=== PATIENT | male | born 1950 | race Caucasian/White ===

== ENCOUNTER → 2018-06-16 08:09 | Outpatient (CLI) | payer MEDICARE, BC, SELFPAY ==
[2018-06-16 08:58] LABS: Bilirubin Negative (Negative); Blood Negative (Negative); Clarity Clear; Glucose Negative (Negative); Ketones Negative (Negative); Leukocyte Esterase Negative (Negative); Nitrite Negative (Negative); Specific Gravity 1.025 (1.005-1.025)
[2018-06-16 09:00] LABS: HCT 43.6 % (40.0-50.0); HGB 14.9 g/dL (13.5-17.5); Mean Corp. HGB Concentration 34.2 g/dL (32.0-36.0); Mean Corpuscular Hemoglobin 28.1 pg (27.0-33.0); Mean Corpuscular Volume 82.1 fL (80-95); Mean Platelet Volume 9.1 fL (8.0-11.0); Platelet Count 228 x1000/uL (130-400); RBC 5.31 m/cumm (4.50-6.00); White Blood Cell Count 6.85 k/cumm (4.4-10.8)
[2018-06-16 09:09] LABS: Bacteria Rare HPF (Negative); C & S Indicated? No; Casts Negative LPF (Negative); Crystals Moderate Amorphous HPF (Negative); Epithelial Cells Negative HPF (Negative); Mucus Negative (Negative); Other Cells Negative (Negative); RBC 0-2 (0-2); WBC 0-2 HPF (0-5)
[2018-06-16 09:36] LABS: PROTEIN 22.9 mg/dL
[2018-06-16 09:38] LABS: COMMENT (LAB VIEW ONLY) 207.24 mg/dL; Prot/Crea Ur Ratio 0.11
[2018-06-16 09:44] LABS: Cholesterol 141 mg/dL (50-200)
[2018-06-16 09:50] LABS: ALT 21 U/L (12-78); AST 15 U/L (15-37); Albumin 3.6 g/dL (3.4-5.0); Alkaline Phosphatase 128 U/L (46-116); Anion Gap 11.9 mmol/L (3-11); BUN 12 mg/dL (7-18); CO2 21.1 mmol/L (21.0-32.0); CREATININE 1.01 mg/dL (0.70-1.30); Calcium 8.8 mg/dL (8.5-10.1); Chloride 105 mmol/L (98-107); Glucose 137 mg/dL (70-100); Magnesium 1.7 mg/dL (1.8-2.4); Potassium 4.4 mmol/L (3.5-5.1); Sodium 138 mmol/L (136-145); Total Protein 6.8 g/dL (6.4-8.2); Uric Acid 5.9 mg/dL (3.5-7.2)
[2018-06-17 15:15] LABS: Tacrolimus (DHMC) 6.8 ng/ml
== END ==
PROVIDERS: PCP Internal Medicine; Visit Provider Internal Medicine Nephrology
DX: Z94.0 Kidney transplant status (principal); Z79.899 Other long term (current) drug therapy; I25.10 Atherosclerotic heart disease of native coronary artery without angina pectoris
CPT/HCPCS: 36415; 80053; 80197; 85027; 81003; 81015; 82465; 82565; 83735; 84100; 84156; 84550

== ENCOUNTER 2018-06-26 10:00 | Outpatient (RCR) | payer MEDICARE, BC, SELFPAY ==
--- NOTE | 2018-06-26 13:30 | COCO.CNN ---
Primary Reason for Visit Medical/Dental/Vision Referral to Care Coordination Referral to Care Coordination: Yes Type: PCP Referral to Services: Yes Where and Who: [facility] exercise program. - Referral From Referral From: PCP Care Plan - Plan of Care Assessment/Background: Assisted 67 year old male client in completing paperwork for the [facility] HF exercise program. [facility] Self Management Goals: maintain health after Cardiac rehab. Action Plan/Progress: client to attend exercise program
--- NOTE | 2018-06-26 13:34 | PDOC.CNN_ITS ---
Primary Reason for Visit Medical/Dental/Vision Referral to Care Coordination Referral to Care Coordination: Yes Type: PCP Referral to Services: Yes Where and Who: [facility] exercise program. - Referral From Referral From: PCP Care Plan - Plan of Care Assessment/Background: Assisted 67 year old male client in completing paperwork for the [facility] HF exercise program. [facility] Self Management Goals: maintain health after Cardiac rehab. Action Plan/Progress: client to attend exercise program
== END 2018-07-10 23:59 | disposition home or self-care (01) ==
LOC: COCO 10:00
PROVIDERS: PCP Internal Medicine; Visit Provider Internal Medicine
DX: R69 Illness, unspecified (principal)

== ENCOUNTER 2018-07-10 11:31 | Outpatient (RCR) | payer MEDICARE, BC, SELFPAY | END 2018-07-10 23:59 | disposition home or self-care (01) | LOC: CR 11:31 | PROVIDERS: PCP Internal Medicine; Visit Provider Family Medicine | DX: I25.10 Atherosclerotic heart disease of native coronary artery without angina pectoris (principal); Z51.89 Encounter for other specified aftercare | CPT/HCPCS: S9472 ==

== ENCOUNTER 2018-07-12 02:30 | Outpatient (RCR) | payer MEDICARE, BC, SELFPAY | END 2018-08-09 23:59 | disposition home or self-care (01) | LOC: CR 02:30 | PROVIDERS: PCP Internal Medicine; Visit Provider Internal Medicine ==

== ENCOUNTER 2018-07-21 12:03 | Outpatient (RCR) | payer SELFPAY ==
--- NOTE | 2018-07-14 09:00 | PR3E_ITS ---
67 year old male who participated and completed Phase 2 of cardiac rehabilitation s/p CABG x4 on 02/16/2018. Patient has choose to continue exercising in our maintenance program and will be attending 2 days per week. RISK factors: +male, +age, +family history, +HTN, +HCL, +obesity, +depression Cardiac medications:Aspirin, Atorvastatin, Diltiazem, Metoprolol PMH: HTN, HLD, depression, renal disease, basal & squamous cell carcinoma, polycystic liver & kidney disease First day of exercise for Phase 3: Pt presented to the program on 07/14/18 and continued his regimen from Phase 2. Resting Vitals: HR 64, BP 153/92, Weight 243 lbs Exercise: treadmill, NuStep, UBE, stationary bike, free weights (10 minutes per machine) Exercise info: HR w/ exercise 88-101, MERCEDEZ RPE 12-13 Cool down HR: 87 bpm No adverse signs or symptoms w/ exercise noted or reported. Tolerated appropriately and will continue to monitor and progress patient as appropriate.
== END 2018-08-09 23:59 | disposition home or self-care (01) ==
LOC: CR 12:03
PROVIDERS: PCP Internal Medicine; Visit Provider Family Medicine
DX: I25.10 Atherosclerotic heart disease of native coronary artery without angina pectoris (principal); Z51.89 Encounter for other specified aftercare

== ENCOUNTER 2018-08-10 14:46 | Outpatient (RCR) | payer SELFPAY | END 2018-09-09 23:59 | disposition home or self-care (01) | LOC: CR 14:46 | PROVIDERS: PCP Internal Medicine; Visit Provider Internal Medicine | DX: I25.10 Atherosclerotic heart disease of native coronary artery without angina pectoris (principal); Z51.89 Encounter for other specified aftercare ==

== ENCOUNTER 2018-09-10 04:50 | Outpatient (RCR) | payer SELFPAY | END 2018-10-09 23:59 | disposition home or self-care (01) | LOC: CR 04:50 | PROVIDERS: PCP Internal Medicine; Visit Provider Internal Medicine | DX: I25.10 Atherosclerotic heart disease of native coronary artery without angina pectoris (principal); Z51.89 Encounter for other specified aftercare ==

== ENCOUNTER 2018-09-24 09:16 | Outpatient (CLI) | payer MEDICARE, BC, SELFPAY ==
[2018-09-24 10:06] LABS: HCT 43.2 % (40.0-50.0); HGB 14.6 g/dL (13.5-17.5); Mean Corp. HGB Concentration 33.8 g/dL (32.0-36.0); Mean Corpuscular Hemoglobin 28.6 pg (27.0-33.0); Mean Corpuscular Volume 84.7 fL (80-95); Mean Platelet Volume 9.2 fL (8.0-11.0); Platelet Count 243 x1000/uL (130-400); RBC Distribution Width 14.9 % (11.8-14.1); White Blood Cell Count 6.01 k/cumm (4.4-10.8)
[2018-09-24 10:21] LABS: Bilirubin Small (Negative); Blood Negative (Negative); Clarity Clear; Glucose Negative (Negative); Ketones Negative (Negative); Leukocyte Esterase Negative (Negative); Nitrite Negative (Negative); Specific Gravity >= 1.030 (1.005-1.025)
[2018-09-24 10:29] LABS: PROTEIN 32.8 mg/dL
[2018-09-24 10:36] LABS: Bacteria Rare HPF (Negative); C & S Indicated? No; Casts Negative LPF (Negative); Crystals Negative HPF (Negative); Epithelial Cells Rare HPF (Negative); Mucus Trace (Negative); RBC 0-2 (0-2); WBC 0-2 HPF (0-5)
[2018-09-24 10:37] LABS: COMMENT (LAB VIEW ONLY) 291.01 mg/dL; Prot/Crea Ur Ratio 0.11
[2018-09-24 10:46] LABS: Cholesterol 136 mg/dL (50-200)
[2018-09-24 10:52] LABS: ALT 22 U/L (12-78); AST 17 U/L (15-37); Albumin 3.5 g/dL (3.4-5.0); Alkaline Phosphatase 123 U/L (46-116); Anion Gap 10.2 mmol/L (3-11); BUN 15 mg/dL (7-18); Bilirubin, Total 1.1 mg/dL (0.2-1.0); CO2 24.8 mmol/L (21.0-32.0); CREATININE 1.02 mg/dL (0.70-1.30); Chloride 104 mmol/L (98-107); Glucose 112 mg/dL (70-100); Magnesium 1.7 mg/dL (1.8-2.4); PHOSPHORUS 3.3 mg/dL (2.6-4.7); Potassium 4.3 mmol/L (3.5-5.1); Sodium 139 mmol/L (136-145); Total Protein 6.6 g/dL (6.4-8.2); Uric Acid 5.5 mg/dL (3.5-7.2)
[2018-09-25 13:21] LABS: Tacrolimus 7.1 ng/ml
== END 2018-09-24 09:36 ==
PROVIDERS: PCP Internal Medicine; Visit Provider Internal Medicine Nephrology
DX: Z94.0 Kidney transplant status (principal); Z79.899 Other long term (current) drug therapy
CPT/HCPCS: 36415; 80053; 85027; 80197; 81003; 81015; 82465; 82565; 83735; 84100; 84156; 84550

== ENCOUNTER 2018-12-28 09:00 | Outpatient (CLI) | payer MEDICARE, BC, SELFPAY ==
[2018-12-28 10:02] LABS: HCT 44.3 % (40.0-50.0); HGB 14.9 g/dL (13.5-17.5); Mean Corp. HGB Concentration 33.6 g/dL (32.0-36.0); Mean Corpuscular Hemoglobin 28.4 pg (27.0-33.0); Mean Corpuscular Volume 84.5 fL (80-95); Mean Platelet Volume 9.2 fL (8.0-11.0); Platelet Count 217 x1000/uL (130-400); RBC 5.24 m/cumm (4.50-6.00); White Blood Cell Count 6.85 k/cumm (4.4-10.8)
[2018-12-28 10:26] LABS: PROTEIN 20.9 mg/dL
[2018-12-28 10:31] LABS: COMMENT (LAB VIEW ONLY) 212.08 mg/dL; Prot/Crea Ur Ratio 0.09
[2018-12-28 10:42] LABS: Bilirubin Negative (Negative); Blood Negative (Negative); Clarity Clear; Glucose Negative (Negative); Ketones Trace mg/dL (Negative); Leukocyte Esterase Negative (Negative); Nitrite Negative (Negative); pH 6.5 (5-8)
[2018-12-28 11:06] LABS: ALT 16 U/L (12-78); AST 14 U/L (15-37); Albumin 3.3 g/dL (3.4-5.0); Alkaline Phosphatase 125 U/L (46-116); Anion Gap 9.6 mmol/L (3-11); BUN 18 mg/dL (7-18); Bilirubin, Total 1.1 mg/dL (0.2-1.0); CO2 26.4 mmol/L (21.0-32.0); CREATININE 1.15 mg/dL (0.70-1.30); Calcium 8.6 mg/dL (8.5-10.1); Chloride 104 mmol/L (98-107); Glucose 113 mg/dL (70-100); Magnesium 1.5 mg/dL (1.8-2.4); PHOSPHORUS 3.5 mg/dL (2.6-4.7); Potassium 4.6 mmol/L (3.5-5.1); Sodium 140 mmol/L (136-145); Total Protein 6.9 g/dL (6.4-8.2)
[2018-12-28 11:09] LABS: Cholesterol 137 mg/dL (50-200)
[2018-12-29 14:04] LABS: Tacrolimus 8.5 ng/ml
== END 2018-12-28 09:20 ==
PROVIDERS: PCP Internal Medicine; Visit Provider Internal Medicine Nephrology
DX: Z94.0 Kidney transplant status (principal); Z79.899 Other long term (current) drug therapy
CPT/HCPCS: 36415; 80053; 85027; 80197; 81003; 82465; 82565; 83735; 84100; 84156; 84550

== ENCOUNTER 2019-01-20 10:44 | Outpatient (CLI) | payer MEDICARE, BC, SELFPAY | END 2019-01-20 11:04 | PROVIDERS: PCP Internal Medicine; Visit Provider Student in an Organized Health Care Education/Training Program | DX: I25.10 Atherosclerotic heart disease of native coronary artery without angina pectoris (principal); I12.9 Hypertensive chronic kidney disease with stage 1 through stage 4 chronic kidney disease, or unspecified chronic kidney disease; Z94.0 Kidney transplant status; Q61.3 Polycystic kidney, unspecified | CPT/HCPCS: 99213 ==

== ENCOUNTER 2019-02-25 08:54 | Outpatient (CLI) | payer MEDICARE, BC, SELFPAY | END 2019-02-25 09:14 | PROVIDERS: PCP Internal Medicine; Visit Provider Student in an Organized Health Care Education/Training Program | DX: R69 Illness, unspecified (principal) ==

== ENCOUNTER 2019-04-06 08:41 | Outpatient (CLI) | payer MEDICARE, BC, SELFPAY ==
[2019-04-06 10:00] LABS: Cholesterol 121 mg/dL (50-200); Glucose 105 mg/dL (70-100); HDL Cholesterol 31 mg/dL (40-60); LDL CHOLESTEROL 72 mg/dL (<100); Triglyceride 67 mg/dL (30-150)
== END 2019-04-06 09:01 ==
PROVIDERS: PCP Internal Medicine; Visit Provider Internal Medicine
DX: R73.9 Hyperglycemia, unspecified (principal); I25.10 Atherosclerotic heart disease of native coronary artery without angina pectoris; I10 Essential (primary) hypertension
CPT/HCPCS: 36415; 80061; 82947; 83721

== ENCOUNTER 2019-06-07 15:04 | Emergency (ER) | payer MEDICARE, BC, SELFPAY ==
[2019-06-07 15:17] VITALS: BP 144/81; PULSE 98; RESP 18; TEMP 36; O2SAT 96
--- NOTE | 2019-06-07 15:45 | ED.GENADUL_ITS ---
Discharge Plan Disposition Patient Disposition: HOME Condition: Stable Discharge Details Chief Complaint: Urinary Clinical Impression: BPH w/o urinary obs/LUTS, Urinary tract infection Primary Care Provider: Portia Davis ED Provider: Elvis Downs Home Meds and New Rx's Prescriptions: New ciprofloxacin HCl [Cipro] 500 mg tablet 500 mg PO BID Qty: 14 RF: 0 No Action venlafaxine 75 mg capsule,extended release 24hr 75 mg PO DAILY Qty: 90 RF: 3 aripiprazole 5 mg tablet 5 mg PO DAILY Qty: 90 RF: 3 atorvastatin 40 mg tablet 40 mg PO DAILY Qty: 90 RF: 3 omeprazole 40 mg capsule,delayed release(DR/EC) 40 mg PO DAILY Qty: 90 RF: 3 metoprolol succinate 100 mg tablet extended release 24 hr 50 mg PO DAILY RF: 0 clonidine HCl [Catapres] 0.1 MG tablet 1 tab PO BID Qty: 90 RF: 3 diltiazem HCl 120 MG capsule,extended release 24hr 120 mg PO BID Qty: 180 RF: 3 cholecalciferol (vitamin D3) [Vitamin D3] 2,000 UNIT capsule 2,000 unit PO DAILY Qty: 90 RF: 3 tacrolimus [Prograf] 0.5 MG capsule 0.5 mg PO DIRECTED RF: 0 acetaminophen 325 MG tablet 325 - 650 mg PO Q4H PRN RF: 0 donepezil 10 MG tablet 10 mg PO DAILY Qty: 90 RF: 3 amoxicillin 500 MG tablet 2 g PO ONCE RF: 0 aspirin [Aspir-81] 81 MG tablet,delayed release (DR/EC) 81 mg PO DAILY RF: 0 polyethylene glycol 3350(bulk) 1 GM granules 17 gm PO BID PRNQty: 527 RF: 3 diphenhydramine HCl [Benadryl] 25 MG capsule 25 mg PO PRN RF: 0 omega-3 fatty acids 1,000 mg capsule 1,000 mg PO BID RF: 0 magnesium gluconate 27 mg magnesium (500 mg) tablet 27 mg PO BID RF: 0 Discharge Instructions Instructions: Urinary Tract Infection in Men (ED) Additional Instructions: if symptoms continue in a week see your primary care provider if you have severe worsening pain, fevers or vomit, or feel more ill return to the emergency department Medical Decision Making 68 yo male with hx of a kidney transplant with prior need for potter years ago comes in with difficulty urinating starting this mroning. Denies fevers or chills, may have some burning with urination. Has no severe pain. Appears well systemically, and was able to urinate here and bladder scan shows only 17cc after this. Suspect uti vs possible retention that resolved, will check UA. He appears well and has no back pain fevers or other findings to suggest sepsis or pyelo pt remains stable and feels better, his UA does show evidence of uti so will start abx. ADvised f/u with his urologist and return precautions given Differential Diagnosis uti, cystitis, retention Lab Data Lab results reviewed: Yes I reviewed the patient's lab results. HPI General Mode of arrival: ambulatory . Date/Time Provider Initiated Documentation: 06/07/19 15:43 . Limitations to Documentation: no limitations . Information obtained by: patient . History of Present Illness 68 year old M presents to the emergency department with the chief complaint of difficulty urinating, described as moderate, Patient started experiencing this day(s) (1) and it has been constant. No relieving factors improve symptom(s), No exacerbating factors reported . Patient did receive the following treatments prior to arrival, none Related Data Home Medications Medication Instructions Recorded Confirmed cholecalciferol (vitamin D3) 2,000 unit PO DAILY #90 01/20/13 03/30/19 [Vitamin D3] clonidine HCl [Catapres] 1 tab PO BID #90 tab-cap 01/20/13 03/30/19 diltiazem HCl 120 mg PO BID #180 01/20/13 03/30/19 tacrolimus [Prograf] 0.5 mg PO DIRECTED 02/12/13 03/30/19 acetaminophen 325 - 650 mg PO Q4H PRN tab 05/06/13 03/30/19 donepezil 10 mg PO DAILY #90 tab 05/06/13 03/30/19 amoxicillin 2 g PO ONCE tab-cap 10/17/14 03/30/19 aspirin [Aspir-81] 81 mg PO DAILY tab-cap 04/05/16 03/30/19 polyethylene glycol 3350(bulk) 17 gm PO BID PRN #527 gm 01/28/17 03/30/19 diphenhydramine HCl [Benadryl] 25 mg PO PRN 06/20/17 03/30/19 aripiprazole 5 mg tablet 5 mg PO DAILY #90 tab 07/28/18 03/30/19 atorvastatin 40 mg tablet 40 mg PO DAILY #90 tab-cap 07/28/18 03/30/19 omeprazole 40 mg capsule,delayed 40 mg PO DAILY #90 tab-cap 07/28/18 03/30/19 release venlafaxine 75 mg capsule,extended 75 mg PO DAILY #90 tab-cap 07/28/18 03/30/19 release 24 hr metoprolol succinate 100 mg 50 mg PO DAILY tab-cap 01/20/19 03/30/19 tablet,extended release 24 hr magnesium gluconate 27 mg 27 mg PO BID tab 02/08/19 03/30/19 magnesium (500 mg) tablet omega-3 fatty acids 1,000 mg 1,000 mg PO BID 02/08/19 03/30/19 capsule ciprofloxacin HCl [Cipro] 500 mg PO BID #14 tab 06/07/19 Previous Rx's Medication Instructions Recorded aripiprazole 5 mg tablet 5 mg PO DAILY #90 tab 07/28/18 atorvastatin 40 mg tablet 40 mg PO DAILY #90 tab-cap 07/28/18 omeprazole 40 mg capsule,delayed 40 mg PO DAILY #90 tab-cap 07/28/18 release venlafaxine 75 mg capsule,extended 75 mg PO DAILY #90 tab-cap 07/28/18 release 24 hr ciprofloxacin HCl [Cipro] 500 mg PO BID #14 tab 06/07/19 Allergies Allergy/AdvReac Type Severity Reaction Status Date / Time No Known Allergies Allergy Verified 06/07/19 15:20 General Stated Complaint: Urinary YUE: 3 Review of Systems Review of Systems All systems reviewed & are unremarkable except as noted in HPI and below Constitutional Denies chills, Denies fever(s) and Denies weakness Cardiovascular Denies chest pain and Denies dyspnea Respiratory Denies cough and Denies dyspnea Gastrointestinal Denies abdominal pain, Denies nausea and Denies vomiting Musculoskeletal Denies joint swelling Neurologic Denies weakness Endocrine Denies heat intolerance [facility] History (Updated 04/08/19 @ 02:49 by Portia Davis MD) CABG X4 (02/16/18) Colonoscopy - MAC (11/28/17) Social History (Updated 03/30/19 @ 11:17 by Radha Madison LPN) Smoking/Tobacco Use Status: Never Alcohol Intake: never Drug use: Never Household members: spouse Number of Children: 2 number of grandchildren: 5 Communication Needs: Corrective Lenses current occupation: retired Current gender identity: male What is your relationship status?: Panel score (0-1 are the most socially isolated patients): 1 What type of physical activity do you participate in: none Seatbelt use: always Drive intox or ride w/intox medical driver: No Water heater temp set <120 deg: Yes Working smoke detector in home: Yes Carbon monox detector in home: Yes Do you feel safe in your relationship?: Yes Exam Const General: no acute distress Orientation: alert HENMT Head: normal to inspection Ears: external ears normal General nose exam: external nose normal Mouth: moist mucous membranes Eyes General: appearance normal, both eyes and all related structures Neck Neck: normal visual inspection Resp Effort & Inspection: normal respiratory effort and able to speak in complete sentences Cardio Rate: regular rate Skin General skin exam: no rashes or lesions noted Neuro General: alert and oriented x3 Extrem General: normal to inspection Psych Mental Status: mental status grossly normal Course Vital Signs Temperature 36 C L 06/07/19 15:17 Pulse 98 H 06/07/19 15:17 Respiratory Rate 18 06/07/19 15:17 Blood Pressure 144/81 H 06/07/19 15:17 Pulse Oximetry 96 06/07/19 15:17 Temperature 36 C L 06/07/19 15:17 Temperature Source Skin 06/07/19 15:17 Pulse 98 H 06/07/19 15:17 Respiratory Rate 18 06/07/19 15:17 Blood Pressure 144/81 H 06/07/19 15:17 Blood Pressure Position Sitting 06/07/19 15:17 Pulse Oximetry 96 06/07/19 15:17 Oxygen Delivery Method Room Air 06/07/19 15:17 Oxygen Flow Rate 0 06/07/19 15:17
[2019-06-07 15:55] LABS: Bilirubin Negative (Negative); Blood Moderate (Negative); Clarity Clear (Clear); Glucose Negative (Negative); Ketones Trace mg/dL (Negative); Leukocyte Esterase Small (Negative); Nitrite Negative (Negative); Specific Gravity 1.025 (1.005-1.025); pH 5.5 (5-8)
[2019-06-07 16:11] LABS: Bacteria Few HPF (Negative); Casts Negative LPF (Negative); Crystals Negative HPF (Negative); Epithelial Cells Negative HPF (Negative); Mucus Negative (Negative); Other Cells Few Transitional (Negative); WBC >50 HPF (0-5)
[2019-06-07 16:12] LABS: C & S Indicated? Yes
[2019-06-07 17:25] VITALS: BP 144/81; PULSE 98; RESP 18; TEMP 36.6; O2SAT 96
== END 2019-06-07 17:26 | disposition home or self-care (01) ==
PROVIDERS: Emergency Provider Emergency Medicine; PCP Internal Medicine
DX: N40.1 Benign prostatic hyperplasia with lower urinary tract symptoms (principal); N39.0 Urinary tract infection, site not specified; Z94.0 Kidney transplant status
CPT/HCPCS: 87077; 99283; 81003; 81015; 87086; 87186

== ENCOUNTER → 2019-07-21 09:54 | Outpatient (BNVA) | payer MEDICARE, BC, SELFPAY | PROVIDERS: PCP Internal Medicine; Visit Provider Student in an Organized Health Care Education/Training Program | DX: I25.10 Atherosclerotic heart disease of native coronary artery without angina pectoris (principal); Z95.1 Presence of aortocoronary bypass graft; Z94.0 Kidney transplant status; I10 Essential (primary) hypertension | CPT/HCPCS: 99214 ==

== ENCOUNTER 2019-08-17 08:40 | Outpatient (CLI) | payer MEDICARE, BC, SELFPAY ==
[2019-08-17 09:25] LABS: HCT 42.7 % (40.0-50.0); HGB 14.3 g/dL (13.5-17.5); Mean Corp. HGB Concentration 33.5 g/dL (32.0-36.0); Mean Corpuscular Hemoglobin 28.6 pg (27.0-33.0); Mean Corpuscular Volume 85.4 fL (80-95); Platelet Count 234 x1000/uL (130-400); RBC Distribution Width 15.4 % (11.8-14.1); White Blood Cell Count 6.05 k/cumm (4.4-10.8)
[2019-08-17 09:37] LABS: PROTEIN 16.1 mg/dL
[2019-08-17 09:40] LABS: COMMENT (LAB VIEW ONLY) 116.42 mg/dL; Prot/Crea Ur Ratio 0.13
[2019-08-17 09:41] LABS: Bilirubin Negative (Negative); Blood Negative (Negative); Clarity Clear (Clear); Glucose Negative (Negative); Ketones Negative (Negative); Leukocyte Esterase Negative (Negative); Nitrite Negative (Negative); Specific Gravity 1.025 (1.005-1.025); pH 5.5 (5-8)
[2019-08-17 09:41] LABS: Cholesterol 147 mg/dL (50-200)
[2019-08-17 09:53] LABS: ALT 18 U/L (16-63); AST 14 U/L (15-37); Albumin 3.5 g/dL (3.4-5.0); Alkaline Phosphatase 121 U/L (46-116); BUN 18 mg/dL (7-18); Bilirubin, Total 1.1 mg/dL (0.2-1.0); CREATININE 1.23 mg/dL (0.70-1.30); Calcium 9.2 mg/dL (8.5-10.1); Chloride 106 mmol/L (98-107); Estimated GFR 58.69 (mL/min/1.73m2); Glucose 162 mg/dL (70-100); Magnesium 1.6 mg/dL (1.8-2.4); PHOSPHORUS 4.2 mg/dL (2.6-4.7); Potassium 4.2 mmol/L (3.5-5.1); Sodium 141 mmol/L (136-145); Total Protein 6.9 g/dL (6.4-8.2); Uric Acid 5.1 mg/dL (3.5-7.2)
[2019-08-18 13:10] LABS: Tacrolimus 9.2 ng/ml
== END 2019-08-17 09:00 ==
PROVIDERS: PCP Internal Medicine; Visit Provider Internal Medicine Nephrology
DX: Z94.0 Kidney transplant status (principal); Z79.899 Other long term (current) drug therapy; Z29.8 Encounter for other specified prophylactic measures
CPT/HCPCS: 36415; 80053; 85027; 80197; 81003; 82465; 82565; 83735; 84100; 84156; 84550

== ENCOUNTER 2020-01-24 08:29 | Outpatient (CLI) | payer MEDICARE, BC, SELFPAY ==
[2020-01-24 09:31] LABS: HCT 42.2 % (40.0-50.0); HGB 14.6 g/dL (13.5-17.5); Mean Corp. HGB Concentration 34.6 g/dL (32.0-36.0); Mean Corpuscular Hemoglobin 29.5 pg (27.0-33.0); Mean Corpuscular Volume 85.3 fL (80-95); Mean Platelet Volume 8.8 fL (8.0-11.0); Platelet Count 218 x1000/uL (130-400); RBC 4.95 m/cumm (4.50-6.00); RBC Distribution Width 14.8 % (11.8-14.1); White Blood Cell Count 5.74 k/cumm (4.4-10.8)
[2020-01-24 09:49] LABS: Bilirubin Negative (Negative); Blood Negative (Negative); Clarity Clear (Clear); Glucose Negative (Negative); Ketones Negative (Negative); Leukocyte Esterase Negative (Negative); Nitrite Negative (Negative); Specific Gravity 1.025 (1.005-1.025); pH 6.5 (5-8)
[2020-01-24 10:09] LABS: PROTEIN 24.6 mg/dL
[2020-01-24 10:10] LABS: COMMENT (LAB VIEW ONLY) 114.94 mg/dL; Prot/Crea Ur Ratio 0.21
[2020-01-24 10:23] LABS: ALT 26 U/L (16-63); AST 16 U/L (15-37); Albumin 3.6 g/dL (3.4-5.0); Alkaline Phosphatase 113 U/L (46-116); Anion Gap 9.3 mmol/L (3-11); BUN 16 mg/dL (7-18); Bilirubin, Total 1.1 mg/dL (0.2-1.0); CO2 26.7 mmol/L (21.0-32.0); Calcium 8.5 mg/dL (8.5-10.1); Chloride 106 mmol/L (98-107); Cholesterol 104 mg/dL (<200); Glucose 117 mg/dL (74-106); Magnesium 1.6 mg/dL (1.8-2.4); PHOSPHORUS 2.9 mg/dL (2.6-4.7); Potassium 4.5 mmol/L (3.5-5.1); Sodium 142 mmol/L (136-145); Total Protein 6.6 g/dL (6.4-8.2); Uric Acid 5.4 mg/dL (3.5-7.2)
[2022-01-31 09:51] LABS: Tacrolimus 7.4 ng/ml (See Note)
== END 2020-01-24 08:49 ==
PROVIDERS: PCP Internal Medicine; Visit Provider Internal Medicine Nephrology
DX: Z94.0 Kidney transplant status (principal); Z79.899 Other long term (current) drug therapy; I10 Essential (primary) hypertension
CPT/HCPCS: 36415; 80053; 85027; 80197; 81003; 82465; 82565; 83735; 84100; 84156; 84550

== ENCOUNTER 2020-05-09 02:47 | Outpatient (CLI) | payer MEDICARE, BC, SELFPAY ==
[2020-05-09 13:54] LABS: HCT 43.6 % (40.0-50.0); Mean Corp. HGB Concentration 34.4 g/dL (32.0-36.0); Mean Corpuscular Hemoglobin 29.1 pg (27.0-33.0); Mean Corpuscular Volume 84.7 fL (80-95); Platelet Count 249 x1000/uL (130-400); RBC 5.15 m/cumm (4.50-6.00); RBC Distribution Width 14.4 % (11.8-14.1); Reticulocyte 2.1 % (0.5-2.4); White Blood Cell Count 6.45 k/cumm (4.4-10.8)
[2020-05-09 14:32] LABS: Bilirubin Negative (Negative); Blood Negative (Negative); Clarity Clear (Clear); Glucose Negative (Negative); Ketones Negative (Negative); Leukocyte Esterase Negative (Negative); Nitrite Negative (Negative); Specific Gravity 1.015 (1.005-1.025)
[2020-05-09 14:38] LABS: ALT 19 U/L (16-63); AST 15 U/L (15-37); Albumin 3.7 g/dL (3.4-5.0); Alkaline Phosphatase 110 U/L (46-116); Anion Gap 9.5 mmol/L (3-11); BUN 12 mg/dL (7-18); CO2 24.5 mmol/L (21.0-32.0); CREATININE 1.13 mg/dL (0.70-1.30); Calcium 8.9 mg/dL (8.5-10.1); Chloride 104 mmol/L (98-107); Glucose 96 mg/dL (74-106); Magnesium 1.7 mg/dL (1.8-2.4); PHOSPHORUS 3.4 mg/dL (2.6-4.7); Potassium 4.6 mmol/L (3.5-5.1); Sodium 138 mmol/L (136-145); Total Protein 6.7 g/dL (6.4-8.2); Uric Acid 5.1 mg/dL (3.5-7.2)
[2020-05-09 14:50] LABS: Calculated LDL 80 mg/dL (<100); Cholesterol 129 mg/dL (<200); HDL Cholesterol 31 mg/dL (40-60); Triglyceride 93 mg/dL (<150)
[2020-05-09 15:07] LABS: PROTEIN < 6.0 mg/dL
[2020-05-09 15:09] LABS: COMMENT (LAB VIEW ONLY) 31.29 mg/dL
[2020-05-10 09:43] LABS: Parathyroid Hormone,Intact 83 pg/mL (19-88)
[2020-05-10 14:26] LABS: Tacrolimus 7.3 ng/mL (See Note)
[2020-05-11 04:26] LABS: Vitamin D 25 Total 45.8 ng/ml (30-100)
[2020-05-11 11:30] LABS: Calcium (Random Urine) 2.9 mg/dL (See Note); Magnesium Random Urine <2.0 mg/dL (See Note); Phosphorus Urine 16.8 mg/dL (See Note)
[2020-05-12 22:36] LABS: 25-Hydroxy D Total 44 ng/mL; 25-Hydroxy D2 <4.0 ng/mL; 25-Hydroxy D3 44 ng/mL
== END 2020-05-09 03:07 ==
PROVIDERS: PCP Internal Medicine; Visit Provider Internal Medicine Nephrology
DX: E55.9 Vitamin D deficiency, unspecified (principal); Z94.0 Kidney transplant status; Z79.899 Other long term (current) drug therapy; Z48.298 Encounter for aftercare following other organ transplant; Z51.81 Encounter for therapeutic drug level monitoring; Z29.8 Encounter for other specified prophylactic measures
CPT/HCPCS: 36415; 80053; 80061; 82306; 83735; 85027; 80197; 81003; 82340; 82465; 82565; 83036; 83970; 84100; 84105; 84156; 84550; 85045

== ENCOUNTER → 2020-07-21 10:30 | Outpatient (BNVA) | payer MEDICARE, BC, SELFPAY | PROVIDERS: PCP Internal Medicine; Visit Provider Internal Medicine Cardiovascular Disease | DX: I25.119 Atherosclerotic heart disease of native coronary artery with unspecified angina pectoris (principal); E78.5 Hyperlipidemia, unspecified; I10 Essential (primary) hypertension; G47.33 Obstructive sleep apnea (adult) (pediatric); Z94.0 Kidney transplant status | CPT/HCPCS: 99204; 99215 ==

== ENCOUNTER 2020-10-26 01:59 | Outpatient (CLI) | payer MEDICARE, BC, SELFPAY ==
[2020-10-26 10:48] LABS: HCT 42.3 % (40.0-50.0); MCH 29.4 pg (27.0-33.0); MCHC 33.1 % (32.0-36.0); MCV 88.9 fL (80-95); MPV 9.2 fL (8.0-11.0); Platelet Count 258 10^3/uL (130-400); RBC 4.76 10^6/uL (4.36-5.78); Reticulocyte 2.8 % (0.5-2.4); WBC 7.57 10^3/uL (4.4-10.8)
[2020-10-26 11:14] LABS: COMMENT (LAB VIEW ONLY) 155.14 mg/dL; Prot/Crea Ur Ratio 0.17
[2020-10-26 11:24] LABS: ALT 23 U/L (16-63); AST 17 U/L (15-37); Albumin 3.5 g/dL (3.4-5.0); Alkaline Phosphatase 105 U/L (46-116); Anion Gap 7.3 mmol/L (3-11); BUN 16 mg/dL (7-18); Bilirubin, Total 1.5 mg/dL (0.2-1.0); CO2 27.7 mmol/L (21.0-32.0); CREATININE 1.05 mg/dL (0.70-1.30); Calcium 8.7 mg/dL (8.5-10.1); Calculated LDL 84 mg/dL (<100); Chloride 104 mmol/L (98-107); Cholesterol 130 mg/dL (<200); Glucose 118 mg/dL (74-106); HDL Cholesterol 27 mg/dL (40-60); Magnesium 1.5 mg/dL (1.8-2.4); Potassium 4.4 mmol/L (3.5-5.1); Sodium 139 mmol/L (136-145); Total Protein 6.8 g/dL (6.4-8.2); Triglyceride 96 mg/dL (<150)
[2020-10-26 11:42] LABS: Vitamin D 25 Total 45.4 ng/ml (30-100)
[2020-10-26 11:54] LABS: PHOSPHORUS 3.1 mg/dL (2.6-4.7); Uric Acid 4.6 mg/dL (3.5-7.2)
[2020-10-26 13:56] LABS: Bilirubin Negative (Negative); Blood Negative (Negative); Clarity Clear (Clear); Glucose Negative (Negative); Ketones Negative (Negative); Leukocyte Esterase Negative (Negative); Nitrite Negative (Negative); Specific Gravity 1.025 (1.005-1.025); pH 6.5 (5-8)
[2020-10-27 08:50] LABS: Calcium (Random Urine) 10.7 mg/dL (See Note)
[2020-10-27 08:52] LABS: Magnesium Random Urine 2.4 mg/dL (See Note)
[2020-10-27 10:01] LABS: Parathyroid Hormone,Intact 62 pg/mL (19-88)
[2020-10-27 13:58] LABS: Tacrolimus 4.1 ng/mL (See Note)
[2020-10-30 13:02] LABS: 25-Hydroxy D Total 47 ng/mL; 25-Hydroxy D2 <4.0 ng/mL; 25-Hydroxy D3 47 ng/mL
== END 2020-10-26 02:19 ==
PROVIDERS: PCP Internal Medicine; Visit Provider Internal Medicine Nephrology
DX: E55.9 Vitamin D deficiency, unspecified (principal); Z94.1 Heart transplant status; Z79.899 Other long term (current) drug therapy; I10 Essential (primary) hypertension; E78.5 Hyperlipidemia, unspecified
CPT/HCPCS: 36415; 80053; 80061; 82306; 83735; 85027; 80197; 81003; 82340; 82565; 83036; 83970; 84100; 84156; 84550; 85045

== ENCOUNTER 2020-12-12 03:18 | Outpatient (CLI) | payer MEDICARE, BC, SELFPAY ==
[2020-12-13 13:53] LABS: PSA, Ultrasensitive 0.61 ng/mL (<= 4.5)
== END 2020-12-12 03:19 | disposition home or self-care (01) ==
LOC: LBO 03:18
PROVIDERS: PCP Internal Medicine; Visit Provider Urology
DX: R97.20 Elevated prostate specific antigen [PSA] (principal)
CPT/HCPCS: 36415; 84153

== ENCOUNTER 2020-12-18 12:02 | Observation (INO) | payer MEDICARE, BC, SELFPAY ==
[2020-12-18] VITALS (62 sets, daily range): BP systolic 121–158; BP diastolic 71–94; PULSE 84–111; RESP 17–35; TEMP 37.1–37.4; O2SAT 95–99
--- NOTE | 2020-12-18 12:00 | RT.EKG_ITS ---
APPROVED REPORT Exam: Resting ECG Patient Location: E HR:95 bpm ECG Measurements Heart Rate 95 AXIS AK 152 P 56 QRSd 92 QRS 58 QT 346 T 28 QTc 435 Conclusion Sinus rhythm...normal P axis, V-rate 60- 99 sinus rhythm at 95, normal axis, no STEMI, nondiagnostic EKG
--- NOTE | 2020-12-18 12:17 | NUR.NOTE ---
pt of JAIME - [facility] list utd - just seen 2 weeks ago Nursing Note:
[2020-12-18] MEDS: Normal Saline Flush 10 ML SYR IVP ×2 (12:47→14:15)
[2020-12-18 12:51] LABS: Abs Immature Grans 0.02 10^3/uL (0.0-0.06); Absolute Basophil Count 0.02 10^3/uL (0.0-0.2); Absolute Eosinophil Count 0.04 10^3/uL (0.0-0.7); Absolute Monocyte Count 0.84 10^3/uL (0.1-0.8); Absolute Neutrophil Count 5.67 10^3/uL (1.2-6.7); Basophils % 0.3; Eosinophils % 0.5; HCT 38.4 % (40.0-50.0); HGB 12.5 g/dL (13.5-17.5); Immature Grans % 0.3; MCH 27.1 pg (27.0-33.0); MCHC 32.6 % (32.0-36.0); MCV 83.1 fL (80-95); MPV 9.2 fL (8.0-11.0); Monocytes % 11.2; Neutrophils % 75.7; Nucleated RBC 0 %; Platelet Count 301 10^3/uL (130-400); RBC 4.62 10^6/uL (4.36-5.78); RDW 14.8 % (11.8-14.1); WBC 7.49 10^3/uL (4.4-10.8)
--- NOTE | 2020-12-18 12:53 | ED.GENADUL_ITS ---
Discharge Plan Disposition Condition: Stable Discharge Details Chief Complaint: Chest Pain Admit Date/Time: 12/18/20 18:22 Admit Provider: Oswald Phillips Attending Provider: Oswald Phillips Primary Care Provider: Portia Daivs ED Provider: Demarcus Aponte Discharge Instructions Activity:: Activity as Tolerated Equipment/Supplies:: No Equipment Needed Diet:: As Tolerated Discharge Orders Discharge Orders: Discharge Order (Routine); Ordered 12/20/20 Ordered By: Mena Brantley Discharge Data Discharge Date/Time-TO BE ENTERED AT DEPARTURE: 12/18/20 19:37 Medical Decision Making Gita Oneill is a 60-year-old man with a history of polycystic kidney disease status post kidney transplant, polycystic liver disease, coronary artery disease who presented to the emergency department with pleuritic right lower chest pain since yesterday, also with mild shortness of breath. On exam patient is tachypneic 30-33 but is in no distress and is speaking in full sentences. There is no tenderness palpation of the chest. Benign cardiopulmonary exam aside from tachypnea. No lower extremity edema or posterior calf tenderness to palpation. Concern for pulmonary embolism, musculoskeletal pain, Covid, metabolic process, other, less likely pneumonia, acute coronary syndrome. Exam/history at this time is not consistent with sepsis, acute aortic pathology. EKG is nondiagnostic. Plan for screening labs, CT chest if creatinine okay, telemetry. Labs reviewed, nondiagnostic. No apparent metabolic process. CT chest negative. Patient has remained tachypneic throughout entire ED course. Plan for ABG, admission for further evaluation. Clinical impression: chest pain, tachypnea Disposition: [facility] inpatient Medical Records Medical records reviewed: Yes I reviewed the patient's medical records. Imaging Data Radiologic Study: Attestation: I personally reviewed and interpreted this imaging study as follows: Radiologist's impression: EXAM: CT CHEST PE CTA CLINICAL HISTORY: right sided chest pain. TECHNIQUE: Imaging Protocol: Axial CT angiography was performed with multi- slice acquisition and multi-planar and/or 3D reconstructions. CONTRAST MATERIAL: Intravenous: Omnipaque 350 Contrast volume:84 mL COMPARISON: CT ABD PELVIS WO CONTRAST from 06/11/2017 FINDINGS: Tracheobronchial tree: Patent where visualized. Pulmonary parenchyma: No consolidation or dominant measurable mass. No architectural distortion. Pulmonary Arteries: No evidence of filling defect to suggest pulmonary emboli. Mediastinum and Priti: No dominant adenopathy or fluid collection. Visualized thyroid gland: Unremarkable. Pleura: No effusion or pneumothorax. Heart: The heart is not dilated. Marked coronary artery calcification versus coronary stents. No pericardial effusion. Aorta: Thoracic aorta non-dilated. Moderate atherosclerosis. No evidence of dissection. Upper abdomen: There again seen multiple hypodense masses within the liver. The largest mass is shown interval decrease in size currently measuring 7.1 x 7.3 cm compared with 12 x 11 cm on the prior examination. Soft tissues: Unremarkable. Bones: Degenerative changes. Sternal wires are in place. IMPRESSION: 1. No evidence of pulmonary embolism, thoracic aortic dissection or aneurysm. 2. Multiple hepatic masses are again seen. The largest mass is shown interval decrease in size. 3. Findings were discussed with the emergency department on the date of the examination. Lab Data Lab results reviewed: Yes I reviewed the patient's lab results. ECG Data Attestation: I personally reviewed and interpreted this ECG (s) as follows: Interpretation: EKG shows sinus rhythm at 95, normal axis, no STEMI, nondiagnostic EKG HPI General Mode of arrival: ambulatory . Date/Time Provider Initiated Documentation: 12/18/20 12:08 . Limitations to Documentation: no limitations . Information obtained by: patient, RN notes reviewed and old records reviewed . HPI Narrative: Gita Oneill is a 70-year-old man with history of polycystic kidney disease status post kidney transplant, polycystic liver disease, coronary artery disease presenting to emergency department with chest pain. Patient reports that yesterday afternoon/evening he developed right lower chest pain, always present but worse with taking deep breaths. He denies any exertional component or positional component. Does not seem to be modified by eating. He states that he also feels somewhat short of breath. Patient denies any similar symptoms in the past. He states that he otherwise feels well in his usual state of health. Has been eating and drinking as usual. He denies any other pain, fever, cough, vomiting, diarrhea, numbness, weakness. No trauma or other known inciting event. Related Data Home Medications Medication Instructions Recorded Confirmed cholecalciferol (vitamin D3) 2,000 unit PO DAILY #90 01/20/13 12/18/20 [Vitamin D3] tacrolimus [Prograf] 0.5 mg PO DIRECTED 02/12/13 12/18/20 acetaminophen 325 - 650 mg PO Q4H PRN tab 05/06/13 12/18/20 donepezil 10 mg PO DAILY #90 tab 05/06/13 12/18/20 amoxicillin 2 g PO ONCE tab-cap 10/17/14 12/18/20 aspirin [Aspir-81] 81 mg PO DAILY tab-cap 04/05/16 12/18/20 polyethylene glycol 3350(bulk) 17 gm PO BID PRN #527 gm 01/28/17 12/18/20 diphenhydramine HCl [Benadryl] 25 mg PO PRN 06/20/17 12/18/20 magnesium gluconate 27 mg 27 mg PO BID tab 02/08/19 12/18/20 magnesium (500 mg) tablet omega-3 fatty acids 1,000 mg 1,000 mg PO BID 02/08/19 12/18/20 capsule tamsulosin 0.4 mg capsule 0.4 mg PO DAILY 06/24/19 12/18/20 metoprolol succinate 50 mg 50 mg PO DAILY #90 tab 01/18/20 12/18/20 tablet,extended release 24 hr aripiprazole 5 mg tablet 5 mg PO DAILY #90 tab 06/27/20 12/18/20 atorvastatin 40 mg tablet 40 mg PO DAILY #90 tab-cap 06/27/20 12/18/20 clonidine HCl 0.1 mg tablet 0.1 mg PO BID #180 tab 06/27/20 12/18/20 omeprazole 40 mg capsule,delayed 40 mg PO DAILY #90 tab-cap 06/27/20 12/18/20 release venlafaxine 150 mg tablet,extended 150 mg PO DAILY #90 tab 06/27/20 12/18/20 release 24 hr methylphenidate HCl 27 mg 27 mg PO DAILY #28 tab MDD 27mg 09/12/20 12/18/20 tablet,extended release 24 hr amlodipine 5 mg tablet 5 mg PO DAILY #30 tab 11/06/20 12/18/20 methylphenidate HCl 27 mg 27 mg PO DAILY #28 tab MDD 27mg 12/05/20 12/18/20 tablet,extended release 24 hr Previous Rx's Medication Instructions Recorded metoprolol succinate 50 mg 50 mg PO DAILY #90 tab 01/18/20 tablet,extended release 24 hr aripiprazole 5 mg tablet 5 mg PO DAILY #90 tab 06/27/20 atorvastatin 40 mg tablet 40 mg PO DAILY #90 tab-cap 06/27/20 clonidine HCl 0.1 mg tablet 0.1 mg PO BID #180 tab 06/27/20 omeprazole 40 mg capsule,delayed 40 mg PO DAILY #90 tab-cap 06/27/20 release venlafaxine 150 mg tablet,extended 150 mg PO DAILY #90 tab 06/27/20 release 24 hr methylphenidate HCl 27 mg 27 mg PO DAILY #28 tab MDD 27mg 09/12/20 tablet,extended release 24 hr amlodipine 5 mg tablet 5 mg PO DAILY #30 tab 11/06/20 methylphenidate HCl 27 mg 27 mg PO DAILY #28 tab MDD 27mg 12/05/20 tablet,extended release 24 hr Allergies Allergy/AdvReac Type Severity Reaction Status Date / Time No Known Allergies Allergy Verified 12/18/20 12:16 General Stated Complaint: Chest Pain YUE: 2 Review of Systems Narrative: Constitutional: denies fevers Eyes: denies eye pain ENT: denies ear pain, dental pain, sore throat Cardiovascular: Reports chest pain, denies edema Respiratory: Reports SOB, denies cough GI: denies abdominal pain, vomiting, diarrhea : denies flank pain MSK: denies back pain, neck pain, arthralgias, myalgias Skin: denies rash Neuro: denies headaches, numbness, weakness PFSH Medical History Depressive disorder, not elsewhere classified (11/25/11) vs adjustment disorder Major depressive disorder, recurrent, moderate Surgical History CABG X4 (02/16/18) Colonoscopy - MAC (11/28/17) H/O kidney transplant LEFT 20O9 History of nephrectomy, left 2008 History of nephrectomy, right 2009 History of surgery of liver Lap [place] [facility] [place] [facility] [place] Status post bilateral hernia repair Family History Mother No problems noted. Father , 11/12/10 Polycystic kidney disease Brother , CAUSE OF UNKNOWN 60'S No problems noted. Brother Polycystic kidney disease Melanoma Prostate cancer Other Breast cancer Diabetes Heart disease Hyperlipidemia Hypertension Social History Smoking/Tobacco Use Status: Never Smoking risk assessment performed?: Yes Alcohol Intake: never Drug use: Never Household members: spouse Number of Children: 2 number of grandchildren: 5 Communication Needs: Corrective Lenses current occupation: retired Current gender identity: male What is your relationship status?: Panel score (0-1 are the most socially isolated patients): 1 What type of physical activity do you participate in: walking Duration: 30-45 minutes/day Frequency: 3-4 times per week Seatbelt use: always Drive intox or ride w/intox trencher driver: No Water heater temp set <120 deg: Yes Working smoke detector in home: Yes Carbon monox detector in home: Yes Firearms in home: Yes Firearms unloaded and locked: Yes Do you feel safe at home: Yes Do you feel safe in your relationship?: Yes Exam Narrative Exam Narrative: Constitutional: well and [id number], pleasant, conversing normally mild tachypnea but able to speak in full sentences, no distress HENT: head atraumatic/normocephalic/normal inspection, mucous membranes moist Eyes: conjunctiva normal, sclera normal, pupils 3mm b/l Neck: no stridor, normal ROM, trachea midline Chest: normal inspection, no tenderness palpation of the right chest in the area of reported pain, no crepitus, no deformity Resp: Tachypnea 30-33, LCTAB Cardio: normal rate, normal rhythm, no murmur appreciated GI: abdomen soft, non-tender, non-distended Back: normal inspection, no rash Skin: warm, dry, normal color, no rash Neuro: alert, not altered, grossly non-focal, normal tone Ext: no edema, no posterior calf tenderness to palpation Psych: normal mood, normal affect, normal behavior Course Vital Signs Vital signs: Vital Signs Temperature 37.2 C 12/18/20 12:12 Pulse 94 H 12/18/20 12:12 Respiratory Rate 22 12/18/20 12:12 Blood Pressure 132/81 12/18/20 12:12 Pulse Oximetry 99 12/18/20 12:12 Temperature 37.2 C 12/18/20 12:12 Temperature Source Skin 12/18/20 12:12 Pulse 94 H 02/08/21 12:12 Respiratory Rate 23 12/18/20 12:20 Respiratory Effort 12/18/20 12:20 Respiratory Depth Shallow 12/18/20 12:20 Respiratory Pattern Normal 12/18/20 12:20 Blood Pressure 132/81 12/18/20 12:12 Pulse Oximetry 99 12/18/20 12:12 Oxygen Delivery Method Room Air 12/18/20 12:12 Oxygen Flow Rate 0 12/18/20 12:12 Pain Level 4 12/18/20 12:12 Lab/Test Results Lab/Test Results: Laboratory Tests Range/Units 12/18/20 12:25 WBC (4.4-10.8) 10^3/uL 7.49 RBC (4.36-5.78) 10^6/uL 4.62 Hgb (13.5-17.5) g/dL 12.5 L Hct (40.0-50.0) % 38.4 L MCV (80-95) fL 83.1 MCH (27.0-33.0) pg 27.1 MCHC (32.0-36.0) % 32.6 RDW (11.8-14.1) % 14.8 H Plt Count (130-400) 10^3/uL 301 MPV (8.0-11.0) fL 9.2 Immature Gran % 0.3 Neutrophils % 75.7 Lymphocytes % 12.0 Monocytes % 11.2 Eosinophils % 0.5 Basophils % 0.3 Nucleated RBC % % 0 Absolute Neutrophils (1.2-6.7) 10^3/uL 5.67 Absolute Lymphocytes (1.2-3.4) 10^3/uL 0.90 L Absolute Monocytes (0.1-0.8) 10^3/uL 0.84 H Absolute Eosinophils (0.0-0.7) 10^3/uL 0.04 Absolute Basophils (0.0-0.2) 10^3/uL 0.02 Sign Out Sign Out Data: Sign Out Comment: Patient signed out to Dr. Aponte at time of shift change with rapid Covid test and admission pending, patient already discussed with Dr. Brantley Last updated by Skye Cabrera MD at 12/18/20 16:48
[2020-12-18 13:12] LABS: ALT 45 U/L (16-63); AST 33 U/L (15-37); Albumin 2.5 g/dL (3.4-5.0); Alkaline Phosphatase 126 U/L (46-116); BUN 12 mg/dL (7-18); Bilirubin, Total 1.1 mg/dL (0.2-1.0); CREATININE 1.2 mg/dL (0.70-1.30); Calcium 8.4 mg/dL (8.5-10.1); Chloride 100 mmol/L (98-107); Glucose 167 mg/dL (74-106); Magnesium 1.8 mg/dL (1.8-2.4); NT-proBNP 291 pg/mL (<300); Potassium 3.5 mmol/L (3.5-5.1); Sodium 137 mmol/L (136-145); Total Protein 7.4 g/dL (6.4-8.2)
[2020-12-18 13:14] LABS: Troponin I < 0.05 ng/mL (<0.06)
[2020-12-18 13:21] LABS: D-Dimer 3990 ng/mlFEU (<500)
--- NOTE | 2020-12-18 13:45 | DI.CT_ITS ---
EXAM: CT CHEST PE CTA CLINICAL HISTORY: right sided chest pain. TECHNIQUE: Imaging Protocol: Axial CT angiography was performed with multi-slice acquisition and mu lti-planar and/or 3D reconstructions. CONTRAST MATERIAL: Intravenous: Omnipaque 350 Contrast volume:84 mL COMPARISON: CT ABD PELVIS WO CONTRAST from 06/11/2017 FINDINGS: Tracheobronchial tree: Patent where visualized. Pulmonary parenchyma: No consolidation or dominant measurable mass. No architectural distortion. Pulmonary Arteries: No evidence of filling defect to suggest pulmonary emboli. Mediastinum and Priti: No dominant adenopathy or fluid collection. Visualized thyroid gland: Unremarkable. Pleura: No effusion or pneumothorax. Heart: The heart is not dilated. Marked coronary artery calcification versus coronary stents. No per icardial effusion. Aorta: Thoracic aorta non-dilated. Moderate atherosclerosis. No evidence of dissection. Upper abdomen: There again seen multiple hypodense masses within the liver. The largest mass is ana wn interval decrease in size currently measuring 7.1 x 7.3 cm compared with 12 x 11 cm on the prior e xamination. Soft tissues: Unremarkable. Bones: Degenerative changes. Sternal wires are in place. IMPRESSION: 1. No evidence of pulmonary embolism, thoracic aortic dissection or aneurysm. 2. Multiple hepatic masses are again seen. The largest mass is shown interval decrease in size. 3. Findings were discussed with the emergency department on the date of the examination. RADIATION DOSE DELIVERED: 514.36mGy.cm Total DLP DATA REPOSITORY: All CT scans at this facility are submitted to the National Radiology Data Registry (NRDR) Dose Index Registry (DIR) with the [employer] ([employer]). RADIATION OPTIMIZATION: All CT scans at this facility use at least one of these dose optimization te chniques: automated exposure control; mA and/or kV adjustment per patient size (includes targeted exa ms where dose is matched to clinical indication); or iterative reconstruction.
[2020-12-18] MEDS: Omnipaque 350 MG/ML 100 ML BTL IJ (14:13)
[2020-12-18] MEDS: Normal Saline - Diluent 50 ML VIAL IV (14:15)
[2020-12-18] MEDS: Normal Saline 1,000 ML 1000 ML IV (14:35)
[2020-12-18 16:02] LABS: Source Nasopharynx
[2020-12-18 16:06] LABS: Troponin I < 0.05 ng/mL (<0.06)
[2020-12-18 16:18] LABS: BE -2 mmol/L (-2-3); HCO3 22 mmol/L (22-26); pCO2 31 mmHg (35-45); pH 7.46 (7.35-7.45); pO2 73 mmHg (80-105); sO2 96 % (95-98); tCO2 19 mmol/L (23-27)
[2020-12-18 16:21] LABS: FIO2 21 %; Site Left Radial
[2020-12-18 16:46] LABS: COVID-19 PCR Negative (Negative); Influenza A PCR Negative (Negative); Influenza B PCR Negative (Negative); RSV PCR Negative (Negative)
--- NOTE | 2020-12-18 18:09 | W.PM.HP.N ---
Date of service: 12/18/20 Time of Service: 18:09 Assessment and Plan Assessment and plan (1) Chest pain: Status: Acute Assessment and plan: Pleuritic chest pain and SOB with elevated d-Dimer. Without any clear diagnosis at this point I think one needs to consider the possibility of a false negative CTA, as this would otherwise explain much of this presentation. Will give single dose Lovenox and check LE U/S in AM. Chest wall injury, or some form of isolated pleurisy also to be considered, though I don't see how this would explain the d-Dimer. Otherwise usual meds as is. History of Present Illness History of Present Illness Chief Complaint: CP Narrative: 70 male with h/o kidney transplant, here with 2 days of gradual onset right pleuritic chest pain and SOB. No cough, fever or chills, no trauma or unusually strenuous activity. In ER w/u of note for tachypnea, d-Dimer >3900, negative CTA chest, neg Covid and neg trop x 2, with normal EKG. ABG shows mild respiratory alkalosis with pH 7.46, pCO2 31 , pO2 73. Due to concerns over ongoing CP and SOB he is admitted for further evaluation. Review of Systems All systems reviewed & are unremarkable except as noted in HPI and below PFSH Medical History Depressive disorder, not elsewhere classified (11/25/11) vs adjustment disorder Major depressive disorder, recurrent, moderate Surgical History CABG X4 (02/16/18) Colonoscopy - MAC (11/28/17) H/O kidney transplant LEFT 20O9 History of nephrectomy, left 2009 History of nephrectomy, right 2009 History of surgery of liver Lap [place] C[place] [facility] [place] Status post bilateral hernia repair Family History Mother No problems noted. Father , 11/12/10 Polycystic kidney disease Brother , CAUSE OF UNKNOWN 60'S No problems noted. Brother Polycystic kidney disease Melanoma Prostate cancer Other Breast cancer Diabetes Heart disease Hyperlipidemia Hypertension Social History Smoking/Tobacco Use Status: Never Smoking risk assessment performed?: Yes Alcohol Intake: never Drug use: Never Household members: spouse Number of Children: 2 number of grandchildren: 5 Communication Needs: Corrective Lenses current occupation: retired Current gender identity: male What is your relationship status?: Panel score (0-1 are the most socially isolated patients): 1 What type of physical activity do you participate in: walking Duration: 30-45 minutes/day Frequency: 3-4 times per week Seatbelt use: always Drive intox or ride w/intox salesperson driver: No Water heater temp set <120 deg: Yes Working smoke detector in home: Yes Carbon monox detector in home: Yes Firearms in home: Yes Firearms unloaded and locked: Yes Do you feel safe at home: Yes Do you feel safe in your relationship?: Yes Meds Home Medications and Allergies Home Medications Medication Instructions Recorded Confirmed Type cholecalciferol (vitamin D3) 2,000 unit PO DAILY #90 01/20/13 12/18/20 History [Vitamin D3] tacrolimus [Prograf] 0.5 mg PO DIRECTED 02/12/13 12/18/20 History acetaminophen 325 - 650 mg PO Q4H PRN tab 05/06/13 12/18/20 History donepezil 10 mg PO DAILY #90 tab 05/06/13 12/18/20 History amoxicillin 2 g PO ONCE tab-cap 10/17/14 12/18/20 History aspirin [Aspir-81] 81 mg PO DAILY tab-cap 04/05/16 12/18/20 History polyethylene glycol 3350(bulk) 17 gm PO BID PRN #527 gm 01/28/17 12/18/20 History diphenhydramine HCl [Benadryl] 25 mg PO PRN 06/20/17 12/18/20 History magnesium gluconate 27 mg 27 mg PO BID tab 02/08/19 12/18/20 History magnesium (500 mg) tablet omega-3 fatty acids 1,000 mg 1,000 mg PO BID 02/08/19 12/18/20 History capsule tamsulosin 0.4 mg capsule 0.4 mg PO DAILY 06/24/19 12/18/20 History metoprolol succinate 50 mg 50 mg PO DAILY #90 tab 01/18/20 12/18/20 Rx tablet,extended release 24 hr aripiprazole 5 mg tablet 5 mg PO DAILY #90 tab 06/27/20 12/18/20 Rx atorvastatin 40 mg tablet 40 mg PO DAILY #90 tab-cap 06/27/20 12/18/20 Rx clonidine HCl 0.1 mg tablet 0.1 mg PO BID #180 tab 06/27/20 12/18/20 Rx omeprazole 40 mg capsule,delayed 40 mg PO DAILY #90 tab-cap 06/27/20 12/18/20 Rx release venlafaxine 150 mg tablet,extended 150 mg PO DAILY #90 tab 06/27/20 12/18/20 Rx release 24 hr methylphenidate HCl 27 mg 27 mg PO DAILY #28 tab MDD 27mg 09/12/20 12/18/20 Rx tablet,extended release 24 hr amlodipine 5 mg tablet 5 mg PO DAILY #30 tab 11/06/20 12/18/20 Rx methylphenidate HCl 27 mg 27 mg PO DAILY #28 tab MDD 27mg 12/05/20 12/18/20 Rx tablet,extended release 24 hr Allergies Allergy/AdvReac Type Severity Reaction Status Date / Time No Known Allergies Allergy Verified 12/18/20 12:16 Exam Narrative Exam Narrative: 146/83, 91, 37.4, 23-30, 96% RA. HEENT atraumatic; neck supple; lungs clear; heart RRR w/o MRG; chest minimal tenderness in area of right anterior chest approx rib 6 and 7 in MCL; abdomen soft and NT; extremities w/o edema, calves NT, Luis Eduardo's neg, pulses 2+/=; neuro Ox3, moves all 4s Results Labs Result diagrams: 12/18/20 12:25 12/18/20 12:25 Labs: Laboratory Results - last 24 hr 12/18/20 12/18/20 12/18/20 12:25 12:25 12:25 WBC 7.49 RBC 4.62 Hgb 12.5 L Hct 38.4 L MCV 83.1 MCH 27.1 MCHC 32.6 RDW 14.8 H Plt Count 301 MPV 9.2 Immature Gran % 0.3 Neutrophils % 75.7 Lymphocytes % 12.0 Monocytes % 11.2 Eosinophils % 0.5 Basophils % 0.3 Nucleated RBC % 0 Absolute Neutrophils 5.67 Absolute Lymphocytes 0.90 L Absolute Monocytes 0.84 H Absolute Eosinophils 0.04 Absolute Basophils 0.02 D-Dimer 3990 H ABG Sample Site ABG pH ABG pCO2 ABG pO2 ABG HCO3 ABG Total CO2 ABG O2 Saturation ABG Base Excess FiO2 Sodium 137 Potassium 3.5 Chloride 100 Carbon Dioxide 25.0 Anion Gap 12.0 H BUN 12 Creatinine 1.2 Estimated GFR/1.73 m2 >= 60.00 Glucose 167 H Calcium 8.4 L Magnesium 1.8 Total Bilirubin 1.1 H AST 33 ALT 45 Alkaline Phosphatase 126 H Troponin I < 0.05 NT-Pro-B Natriuret Pep 291 Total Protein 7.4 Albumin 2.5 L COVID-19 Source SARS-CoV-2 (PCR) Influenza Type A (PCR) Influenza Type B (PCR) RSV (PCR) 12/18/20 12/18/20 12/18/20 15:45 15:56 16:18 WBC RBC Hgb Hct MCV MCH MCHC RDW Plt Count MPV Immature Gran % Neutrophils % Lymphocytes % Monocytes % Eosinophils % Basophils % Nucleated RBC % Absolute Neutrophils Absolute Lymphocytes Absolute Monocytes Absolute Eosinophils Absolute Basophils D-Dimer ABG Sample Site Left radial ABG pH 7.46 H ABG pCO2 31 L ABG pO2 73 L ABG HCO3 22 ABG Total CO2 19 L ABG O2 Saturation 96 ABG Base Excess -2 FiO2 21 Sodium Potassium Chloride Carbon Dioxide Anion Gap BUN Creatinine Estimated GFR/1.73 m2 Glucose Calcium Magnesium Total Bilirubin AST ALT Alkaline Phosphatase Troponin I < 0.05 NT-Pro-B Natriuret Pep Total Protein Albumin COVID-19 Source Nasopharynx SARS-CoV-2 (PCR) Negative Influenza Type A (PCR) Negative Influenza Type B (PCR) Negative RSV (PCR) Negative Last Vital Signs Temp 37.4 C 12/18/20 14:41 Pulse 91 H 12/18/20 17:45 Resp 23 12/18/20 17:50 BP 146/83 H 12/18/20 17:45 Pulse Ox 96 12/18/20 17:50 COVID-19 Screening Have you, or household traveled for leisure in last 14 days?: No Had IN PERSON contact w/suspected or confirmed C-19 person: No
[2020-12-18] MEDS: Enoxaparin 100 MG/ML SYR SC (20:32)
[2020-12-18] MEDS: cloNIDine 0.1 MG TAB PO (20:32)
[2020-12-18] MEDS: Donepezil 5 MG TAB 10 MG PO (22:12)
[2020-12-18] MEDS: Tacrolimus 0.5 MG CAP PO (22:42)
--- NOTE | 2020-12-19 | DI.US_ITS ---
EXAM: US EXTREMITY VENOUS BI CLINICAL HISTORY: CP, SOB, elevated d-Dimer. TECHNIQUE: Bilateral lower extremity venous ultrasound performed using grayscale, color-flow, and sp ectral Doppler analysis. COMPARISON: No exams were available for comparison FINDINGS: The bilateral common femoral, femoral and popliteal veins demonstrate normal compressibility, augment ation, and color Doppler. The posterior tibial veins are patent. The saphenofemoral junctions are unr emarkable. There is no evidence of a Fallon's cyst. The soft tissues are unremarkable. IMPRESSION: Right: Negative for DVT Left: Negative for DVT DATA REPOSITORY:
--- NOTE | 2020-12-19 | DI.NM_ITS ---
EXAM: NM LUNG SCAN VENT PERF GRP CLINICAL HISTORY: concern for a PE, ?false negative CTA. TECHNIQUE: Injected Dose: Ventilation: 32 mCi Tc-99m DTPA via inhalation Perfusion: 4.2 mCi Tc-99m MAA via IV COMPARISON: CT CT CHEST PE CTA from 12/18/2020 CR XR CHEST 2V PA LATERAL from 12/19/2020 FINDINGS: Chest X-Ray: Clear lungs. Perfusion: Normal. Ventilation:Normal . IMPRESSION: 1. Very low probability of pulmonary embolism .. . Modified PIOPED II criteria Probability Criteria High Two or more segments of V/Q mismatch Low Normal Perfusion, Non segmental perfusion abnormalitie s, pleural effusion in at least 1/3 of pleural cavity with no other defect Radiograph/perfusion matched defect in mid to upper lung confined to segment, one to three small segmental perfusion defects (<25% of segment) Perfusion defect smaller than corresponding radiogra phic lesion. Intermediate All other findings DATA REPOSITORY:
--- NOTE | 2020-12-19 | DI.RAD_ITS ---
EXAM: XR CHEST 2V PA LATERAL CLINICAL HISTORY: for VQ scan TECHNIQUE: 2D digital imaging was performed. COMPARISON: CR CHEST 2 VIEWS PA,LAT from 06/11/2017 FINDINGS: MEDIASTINUM: Normal. HEART: Normal. Since the prior examination the patient has undergone a CABG. PULMONARY VASCULATURE: Normal. LUNGS: Clear. PLEURAL SPACE: No pleural effusion or pneumothorax. BONE:Within normal limits for the patient's age. OTHER FINDINGS:Normal. IMPRESSION: No acute pulmonary findings. DATA REPOSITORY: RADIATION DOSE DELIVERED:
[2020-12-19 03:07] VITALS: BP 170/98; PULSE 98; RESP 20; TEMP 36.8; O2SAT 98
[2020-12-19 03:14] VITALS: BP 150/80
[2020-12-19 07:00] VITALS: PULSE 87
[2020-12-19 07:57] VITALS: BP 153/89; PULSE 90; RESP 22; TEMP 36.3; O2SAT 100
[2020-12-19] MEDS: cloNIDine 0.1 MG TAB PO ×2 (08:21→21:54)
[2020-12-19] MEDS: Atorvastatin 40 MG TAB PO (08:21)
[2020-12-19] MEDS: Aspirin E.C. 81 MG TABEC PO (08:21)
[2020-12-19] MEDS: Tacrolimus 0.5 MG CAP 1 MG PO (08:21)
[2020-12-19] MEDS: Venlafaxine 150 MG CAPCR PO (08:21)
[2020-12-19] MEDS: ARIPiprazole 5 MG TAB PO (08:21)
[2020-12-19] MEDS: amLODIPine 5 MG TAB PO (08:22)
[2020-12-19] MEDS: Omeprazole 20 MG CAPCR 40 MG PO (08:22)
[2020-12-19] MEDS: Metoprolol CR 50 MG TABCR PO (08:22)
[2020-12-19] MEDS: Tamsulosin 0.4 MG CAPCR PO (08:22)
[2020-12-19] MEDS: Enoxaparin 120 MG/0.8 ML SYR 110 MG SC ×2 (10:11→21:55)
[2020-12-19 12:36] LABS: Troponin I < 0.05 ng/mL (<0.06)
[2020-12-19 13:41] LABS: COVID-19 RT-PCR UVMMC Result Negative (Negative)
--- NOTE | 2020-12-19 16:01 | INITIAL_ITS ---
- If Service Date Differs Date of service: 12/19/20 Time of Service: 16:17 Care Management Initial Assess REASON FOR HOSPITALIZATION:: Chest Pain PAST MEDICAL HISTORY/PAST SURGICAL HISTORY:: Major depressive disorder, CAGB x4, colonoscopy, kidney transplant, nephrectomy, liver surgery, bilateral hernia repair PREVIOUS FUNCTIONAL STATUS/SOCIAL/FAMILY SUPPORTS:: Gita resides in [place] with his , Ivet. He is independent at baseline in the community. CURRENT FUNCTIONAL STATUS:: Gita remains in good spirits, he is up independently in his room. He was being brought downstairs in a wheelchair when CM greeted him in the afternoon. CM continues to follow. Has patient been provided with info about the portal/API?: Yes Did the patient sign up for the portal?: Yes (Previously ) CODE STATUS:: Full Code INSURANCE COVERAGE / FINANCIAL ISSUES:: Medicare. BC/BS CURRENT HOME/COMMUNITY SERVICES/EQUIPMENT:: No current services or equipment. PRIMARY CARE PHYSICIAN:: Portia Davis POTENTIAL DISCHARGE NEEDS:: Follow up appointment with PCP. PATIENT/FAMILY EDUCATION NEEDS:: Review discharge instructions, discuss Ask Me Three. ANTICIPATED BARRIERS TO DISCHARGE:: None identified at this time. TRANSPORTATION:: Via private vehicle with family. PLAN:: Gita will return home when ready per MD. He will follow up with his PCP and plan of care as prescribed. He will transport via private with family.
--- NOTE | 2020-12-19 17:06 | W.PM.PROGNOT ---
Date of Service Date of service: 12/19/20 Time of Service: 17:06 Assessment and Plan Assessment and plan (1) Pleuritic chest pain: Status: Acute Assessment and plan: I agree that it sounds like the patient has a PE and had a false negative CTA. We will await the read of the VQ scan. Ruled out for ACS. Continue to monitor on tele and empiric full dose lovenox. (2) Acute respiratory alkalosis: Status: Acute Assessment and plan: As above. Tachypnea/dyspnea have resolved today. (3) Atherosclerosis of [place] coronary artery of [place] heart with angina pectoris: Status: Chronic (4) ANA ROSA (obstructive sleep apnea): Status: Chronic Assessment and plan: Continue home CPAP (5) DVT prophylaxis: Status: Acute Assessment and plan: Full dose lovenox (6) Discharge planning issues: Status: Acute Assessment and plan: Full code Plan to discharge home tomorrow Subjective Subjective Interval history since last seen: Feels better, though still has some pain on inhalation on the R side. Denies dizziness, chest pain, shortness of breath, nausea/vomiting. Exam Narrative Exam Narrative: General: Pleasant male, sitting comfortably at the edge of the bed HEENT: EOMI, MMM Heart: RRR, no m/r/g Lungs: CTAB Abdomen: soft, nontender, nondistended Extremities: no e/c/c BLE's Objective Last Vital Signs Temp 36.3 C L 12/19/20 07:57 Pulse 90 12/19/20 07:57 Resp 22 12/19/20 07:57 BP 153/89 H 12/19/20 07:57 Pulse Ox 100 12/19/20 07:57 Laboratory Results - last 24 hr 12/18/20 12/19/20 13:55 12:14 Troponin I < 0.05 SARS-CoV-2 (PCR) Negative Nasopharyn COVID-19 PCR Not Applicable Ref Test Perform Site [place] [facility] lab Objective Narrative Objective Narrative: Venous doppler BLE's: negative VQ scan pending
[2020-12-19 17:19] VITALS: BP 134/81; PULSE 86; RESP 18; TEMP 36.3; O2SAT 100
--- NOTE | 2020-12-19 17:22 | DI.VRAD_ITS ---
PROCEDURE INFORMATION: Exam: NM Lung Ventilation and Perfusion Imaging Exam date and time: 12/19/2020 5:03 PM Age: 70 years old Clinical indication: Angina; Patient HX: Chest pain x 72 hours TECHNIQUE: Imaging protocol: Nuclear pulmonary ventilation with aerosol or gas was performed followed by perfusion. Radiopharmaceutical: 4.2 mCi Tc-99m MAA (Macroaggregated Albumin), IV. 32 mCi Tc-99m DTPA (DTPA Aerosol), Inhalation. COMPARISON: CR XR CHEST 2V PA LATERAL 12/19/2020 1:40 PM FINDINGS: Ventilation: Normal. No ventilation defects. Perfusion: Normal. No perfusion defects. IMPRESSION: Very low probability for pulmonary embolus. Dictated and Authenticated by: Debo Garsia MD. Ordering:POIL San MD
[2020-12-19] MEDS: Normal Saline Flush 10 ML SYR IVP (21:54)
[2020-12-19] MEDS: Donepezil 5 MG TAB 10 MG PO (21:54)
[2020-12-19] MEDS: Tacrolimus 0.5 MG CAP PO (21:55)
[2020-12-19 23:49] VITALS: BP 155/88; PULSE 90; RESP 18; TEMP 37; O2SAT 95
[2020-12-20 03:32] VITALS: BP 134/76; PULSE 85; RESP 18; TEMP 36.5; O2SAT 96
[2020-12-20 07:00] VITALS: PULSE 88
[2020-12-20 07:49] VITALS: BP 147/80; PULSE 89; RESP 19; TEMP 36; O2SAT 99
[2020-12-20] MEDS: Tamsulosin 0.4 MG CAPCR PO (07:55)
[2020-12-20] MEDS: Aspirin E.C. 81 MG TABEC PO (07:55)
[2020-12-20] MEDS: Atorvastatin 40 MG TAB PO (07:55)
[2020-12-20] MEDS: Metoprolol CR 50 MG TABCR PO (07:55)
[2020-12-20] MEDS: Venlafaxine 150 MG CAPCR PO (07:55)
[2020-12-20] MEDS: amLODIPine 5 MG TAB PO (07:56)
[2020-12-20] MEDS: Omeprazole 20 MG CAPCR 40 MG PO (07:56)
[2020-12-20] MEDS: ARIPiprazole 5 MG TAB PO (07:56)
[2020-12-20] MEDS: Tacrolimus 0.5 MG CAP 1 MG PO (07:56)
[2020-12-20] MEDS: cloNIDine 0.1 MG TAB PO (07:56)
--- NOTE | 2020-12-20 08:43 | RESPIRATORY ---
Pt does not want to use a hospital cpap, says he uses his at home but has been sleeping well and does not need it. Will let RT reducing machine operator know if he changes his mind.
--- NOTE | 2020-12-20 09:39 | W.PM.DS.N ---
Date of service: 12/20/20 Time of Service: 09:39 DS: Diagnosis Discharge Diagnosis (1) Pleuritic chest pain: Status: Acute (2) Acute respiratory alkalosis: Status: Resolved (3) Atherosclerosis of [place] coronary artery of [place] heart with angina pectoris: Status: Chronic (4) ANA ROSA (obstructive sleep apnea): Status: Chronic (5) COVID-19 ruled out by laboratory testing: Status: Resolved Discharge Plan Disposition Patient Disposition: HOME Condition: Stable Discharge Details Reason For Visit: CP Admit Date/Time: 12/18/20 18:22 Admit Provider: Oswald Phillips Attending Provider: Oswald Phillips Primary Care Provider: Portia Davis Hospital Course Hospital Course: Mr Oneill is a 70 year old male with PMHx of polycystic kidney disease s/p renal transplant, on prograf therapy, as well as polycystic liver disease, hypertension, ANA ROSA, who was observed on [facility] hospitalist service from 12/18/2020 until 12/20/2020 after having presented with pleuritic chest pain, dyspnea/tachypnea, and evidence of respiratory alkalosis without hypoxia. He ruled out for ACS by EKGs and serial troponins. He did have an elevated D-dimer and a clinical picture concerning for an acute PE, but had a negative CTA of the chest. Because the clinical picture was so convincing, a false negative CTA of the chest was suspected. For this reason, a venous doppler of BLEs and a VQ scan were ordered. Both were negative. At this point, we can comfortably say that the etiology of his pleuritic chest pain is not a PE. His respiratory symptoms have resolved, though some degree of the pleuritic chest pain is still present. We recommend tylenol, incentive spirometry, and follow up with PCP for further workup, should pleurisy persist. Patient is stable for discharge home today. Care for patient as well as preparation of his discharge summary on day of discharge took 35 minutes. Home Meds and New Rx's Prescriptions: Continued aripiprazole 5 mg tablet 5 mg PO DAILY Qty: 90 RF: 3 atorvastatin 40 mg tablet 40 mg PO DAILY Qty: 90 RF: 3 clonidine HCl 0.1 mg tablet 0.1 mg PO BID Qty: 180 RF: 3 omeprazole 40 mg capsule,delayed release(DR/EC) 40 mg PO DAILY Qty: 90 RF: 3 venlafaxine 150 mg tablet extended release 24hr 150 mg PO DAILY Qty: 90 RF: 3 methylphenidate HCl 27 mg tablet extended release 24hr 27 mg PO DAILY MDD 27mg Qty: 28 RF: 0 methylphenidate HCl 27 mg tablet extended release 24hr 27 mg PO DAILY MDD 27mg Qty: 28 RF: 0 cholecalciferol (vitamin D3) [Vitamin D3] 2,000 UNIT capsule 2,000 unit PO DAILY Qty: 90 RF: 3 tacrolimus [Prograf] 0.5 MG capsule 0.5 mg PO DIRECTED RF: 0 acetaminophen 325 MG tablet 325 - 650 mg PO Q4H PRN RF: 0 donepezil 10 MG tablet 10 mg PO DAILY Qty: 90 RF: 3 amoxicillin 500 MG tablet 2 g PO ONCE RF: 0 aspirin [Aspir-81] 81 MG tablet,delayed release (DR/EC) 81 mg PO DAILY RF: 0 polyethylene glycol 3350(bulk) 1 GM granules 17 gm PO BID PRNQty: 527 RF: 3 diphenhydramine HCl [Benadryl] 25 MG capsule 25 mg PO PRN RF: 0 omega-3 fatty acids 1,000 mg capsule 1,000 mg PO BID RF: 0 magnesium gluconate 27 mg magnesium (500 mg) tablet 27 mg PO BID RF: 0 tamsulosin [Flomax] 0.4 mg capsule 0.4 mg PO DAILY RF: 0 metoprolol succinate 50 mg tablet extended release 24 hr 50 mg PO DAILY Qty: 90 RF: 3 amlodipine 5 mg tablet 5 mg PO DAILY Qty: 30 RF: 1 Discharge Instructions Instructions: Chest Pain (DC), Pleurisy (DC), How to Use an Incentive Spirometer (DC), Deep Vein Thrombosis (DC), Deep Vein Thrombosis Prevention (DC) Additional Instructions: Take tylenol for your chest pain on inspiration (make sure not to exceed the maximum recommended dose on the packaging) and use an incentive spirometry to ensure you are taking deep breaths (will help prevent pneumonia). Return to the hospital if the character of your chest pain changes, if you develop fever, bleeding, chest pain or shortness of breath. Follow up with your PCP in 1-2 weeks. Stand Alone Forms: Nursing Discharge Form Referrals: Portia Davis MD [Primary Care Provider] - 12/27/20 12:45 pm Activity:: Activity as Tolerated Equipment/Supplies:: No Equipment Needed Diet:: As Tolerated Discharge Orders Discharge Orders: Discharge Order (Routine); Ordered 12/20/20 Ordered By: Mena Brantley DS: Summary Time Spent with Patient providing and/or coordinating discharge services: Greater than 30 minutes Status at Discharge Functional status at discharge: independent ambulation Overall status at discharge: patient is progressing back to baseline Mental Status: mental status grossly normal Speech and Movement: speech and movement normal Mood: congruent mood Affect: normal affect Exam Narrative Exam Narrative: General: Pleasant male, laying comfortably in bed HEENT: EOMI, MMM Heart: RRR, no m/r/g Lungs: CTAB Abdomen: soft, nontender, nondistended Extremities: no e/c/c BLE's Psych Mental Status: mental status grossly normal Speech and Movement: speech and movement normal Mood: congruent mood Affect: normal affect DS: Data Vitals/I&O Vitals and I&O: Vital Signs Temperature 36 C L 12/20/20 07:49 Temperature Source Tympanic 12/20/20 07:49 Pulse 89 12/20/20 07:49 Pulse Rhythm Regular 12/20/20 09:31 Pulse 96 H 12/18/20 18:20 Respiratory Rate 19 12/20/20 07:49 Respiratory Effort Non-Labored 12/20/20 09:31 Respiratory Depth Normal 12/20/20 09:31 Respiratory Pattern Normal 12/20/20 09:31 Blood Pressure 147/80 H 12/20/20 07:49 Blood Pressure Mean 99 12/18/20 18:15 Pulse Oximetry 99 12/20/20 07:49 Oxygen Delivery Method Room Air 12/20/20 07:49 Oxygen Flow Rate 0 12/20/20 07:49 Pain Level 0 12/20/20 07:49 Intake & Output 12/19/20 12/19/20 12/20/20 11:59 23:59 11:59 Intake Total 360 / 1260 900 / 1260 240 / 240 Output Total 100 / 100 Balance 260 / 1160 900 / 1160 240 / 240 Intake: IV Oral 360 / 1250 890 / 1250 240 / 240 Output: Urine 100 / 100 Other: Urine Color Light Germaine Yellow Urine Appearance Clear Clear Clear Urine Odor Normal Comment Pt voided in the toilet independently, not hat in toliet to check amount. Per pt urine was dark. ADVERTISING ASSISTANT did not witness. pt using bathroom independently Voiding Methods Toilet Toilet Data Completed and Pending Completed studies during hospitalization [Text1]: CTA chest: 1. No evidence of pulmonary embolism, thoracic aortic dissection or aneurysm. 2. Multiple hepatic masses are again seen. The largest mass is shown interval decrease in size. CXR: No acute pulmonary findings. Venous doppler BLE's: Right: Negative for DVT Left: Negative for DVT VQ scan: Very low probability for pulmonary embolus. Labs on day of discharge: Labs from last 24 hours 12/19/20 12/18/20 12:14 13:55 Troponin I < 0.05 SARS-CoV-2 (PCR) Negative Nasopharyn COVID-19 PCR Not Applicable Ref Test Perform Site [facility] lab [facility] Medical History Depressive disorder, not elsewhere classified (11/25/11) vs adjustment disorder Major depressive disorder, recurrent, moderate Surgical History CABG X4 (02/16/18) Colonoscopy - MAC (11/28/17) H/O kidney transplant LEFT 20O9 History of nephrectomy, left 2009 History of nephrectomy, right 2009 History of surgery of liver [place] [facility] [place] Status post bilateral hernia repair Family History Mother No problems noted. Father , 11/12/10 Polycystic kidney disease Brother , CAUSE OF UNKNOWN 60'S No problems noted. Brother Polycystic kidney disease Melanoma Prostate cancer Other Breast cancer Diabetes Heart disease Hyperlipidemia Hypertension Social History Smoking/Tobacco Use Status: Never Smoking risk assessment performed?: Yes Alcohol Intake: never Drug use: Never Household members: spouse Number of Children: 2 number of grandchildren: 5 Communication Needs: Corrective Lenses current occupation: retired Current gender identity: male What is your relationship status?: Panel score (0-1 are the most socially isolated patients): 1 What type of physical activity do you participate in: walking Duration: 30-45 minutes/day Frequency: 3-4 times per week Seatbelt use: always Drive intox or ride w/intox local tanker truck driver: No Water heater temp set <120 deg: Yes Working smoke detector in home: Yes Carbon monox detector in home: Yes Firearms in home: Yes Firearms unloaded and locked: Yes Do you feel safe at home: Yes Do you feel safe in your relationship?: Yes
[2020-12-20] MEDS: Acetaminophen 325 MG TAB 650 MG PO (10:07)
[2020-12-20 13:41] VITALS: PULSE 92
--- NOTE | 2020-12-20 17:41 | PDOC.CMDIS ---
- If Service Date Differs Date of service: 12/20/20 Time of Service: 17:41 LACE Index Scoring Tool - Questions: Length of Stay (in days): 2 Acuity (Admit via E.D.?): Yes Comorbidities: Liver or Renal Disease E.D. Visits: 1 - Answers: Total Score: 11 Risk of Readmission: High Risk Care Management Discharge Reason for Hospitalization: Chest Pain Discharge Plan: Gita will return home with no additional services at this time. His will drive him home via private vehicle. He will follow up with his PCP and discharge plan of care. He is happy to be going home. Patient/Family Education Needs: Review discharge instructions, discussion of self care needs and self management.
== END 2020-12-20 12:04 | disposition home or self-care (01) ==
LOC: ER 18:29 → MS 19:15
PROVIDERS: Internal Medicine; Student in an Organized Health Care Education/Training Program; Admitting Provider General Practice; Emergency Provider Emergency Medicine; PCP Internal Medicine; Visit Provider General Practice
DX: R07.81 Pleurodynia (principal); Z94.0 Kidney transplant status; G47.33 Obstructive sleep apnea (adult) (pediatric); I25.119 Atherosclerotic heart disease of native coronary artery with unspecified angina pectoris; E87.3 Alkalosis; Q44.6 Cystic disease of liver; Z20.828 Contact with and (suspected) exposure to other viral communicable diseases
CPT/HCPCS: 36415; 71275; 78582; 80053; 82805; 93005; 96360; 99217; 99222; 99225; 99285; U0003; U0005; 71046; 83735; 83880; 84484; 85025; 85379; 93010; 93970; 99219; 99284; G0378; J1650; J3490

== ENCOUNTER 2021-03-06 03:33 | Outpatient (CLI) | payer MEDICARE, BC, SELFPAY ==
[2021-03-06 09:59] LABS: HCT 42.6 % (40.0-50.0); HGB 13.6 g/dL (13.5-17.5); MCH 27.1 pg (27.0-33.0); MCHC 31.9 % (32.0-36.0); MCV 84.9 fL (80-95); MPV 8.4 fL (8.0-11.0); Platelet Count 235 10^3/uL (130-400); RBC 5.02 10^6/uL (4.36-5.78); RDW 16.3 % (11.8-14.1); RDW-SD 49.5 fL
[2021-03-06 10:02] LABS: Bilirubin Negative (Negative); Blood Negative (Negative); Clarity Clear (Clear); Glucose Negative (Negative); Ketones Negative (Negative); Leukocyte Esterase Negative (Negative); Nitrite Negative (Negative); Specific Gravity 1.025 (1.005-1.025)
[2021-03-06 10:52] LABS: PROTEIN 22.6 mg/dL
[2021-03-06 11:05] LABS: ALT 22 U/L (16-63); AST 15 U/L (15-37); Albumin 3.5 g/dL (3.4-5.0); Alkaline Phosphatase 138 U/L (46-116); Anion Gap 9.6 mmol/L (3-11); BUN 17 mg/dL (7-18); Bilirubin, Total 1.2 mg/dL (0.2-1.0); CO2 27.4 mmol/L (21.0-32.0); Calcium 9.3 mg/dL (8.5-10.1); Chloride 104 mmol/L (98-107); Glucose 115 mg/dL (74-106); Magnesium 1.6 mg/dL (1.8-2.4); PHOSPHORUS 3.8 mg/dL (2.6-4.7); Potassium 4.6 mmol/L (3.5-5.1); Sodium 141 mmol/L (136-145); Total Protein 7.2 g/dL (6.4-8.2); Uric Acid 4.6 mg/dL (3.5-7.2)
[2021-03-06 11:20] LABS: COMMENT (LAB VIEW ONLY) 131.87 mg/dL; Prot/Crea Ur Ratio 0.17
[2021-03-06 11:28] LABS: Cholesterol 126 mg/dL (<200)
[2021-03-07 13:45] LABS: Tacrolimus 9.7 ng/mL (See Note)
== END 2021-03-06 03:34 | disposition home or self-care (01) ==
LOC: LBO 03:33
PROVIDERS: PCP Internal Medicine; Visit Provider Internal Medicine Nephrology
DX: Z94.0 Kidney transplant status (principal); Z79.899 Other long term (current) drug therapy
CPT/HCPCS: 36415; 80053; 85027; 80197; 81003; 82465; 82565; 83735; 84100; 84144; 84156; 84550

== ENCOUNTER 2021-05-15 04:05 | Outpatient (CLI) | payer MEDICARE, BC, SELFPAY ==
[2021-05-15 07:38] LABS: HGB 12.6 g/dL (13.5-17.5); MCH 26.5 pg (27.0-33.0); MCHC 31.5 % (32.0-36.0); MPV 8.4 fL (8.0-11.0); Platelet Count 223 10^3/uL (130-400); RBC 4.76 10^6/uL (4.36-5.78); RDW 16.8 % (11.8-14.1); WBC 6.47 10^3/uL (4.4-10.8)
[2021-05-15 07:54] LABS: Bilirubin Negative (Negative); Blood Negative (Negative); Clarity Clear (Clear); Glucose Negative (Negative); Ketones Negative (Negative); Leukocyte Esterase Negative (Negative); Nitrite Negative (Negative); Specific Gravity 1.025 (1.005-1.025); pH 6.5 (5-8)
[2021-05-15 08:04] LABS: Hemoglobin A1C 5.3 % (<5.7)
[2021-05-15 08:17] LABS: COMMENT (LAB VIEW ONLY) 120.06 mg/dL; Prot/Crea Ur Ratio 0.19
[2021-05-15 08:58] LABS: ALT 22 U/L (16-63); AST 14 U/L (15-37); Albumin 3.1 g/dL (3.4-5.0); Alkaline Phosphatase 127 U/L (46-116); Anion Gap 12.4 mmol/L (3-11); BUN 16 mg/dL (7-18); Bilirubin, Total 0.9 mg/dL (0.2-1.0); CO2 24.6 mmol/L (21.0-32.0); CREATININE 0.9 mg/dL (0.70-1.30); Calcium 8.5 mg/dL (8.5-10.1); Calculated LDL 82 mg/dL (<100); Chloride 105 mmol/L (98-107); Cholesterol 128 mg/dL (<200); Glucose 107 mg/dL (74-106); HDL Cholesterol 31 mg/dL (40-60); Magnesium 1.6 mg/dL (1.8-2.4); Potassium 4.3 mmol/L (3.5-5.1); Sodium 142 mmol/L (136-145); Total Protein 6.8 g/dL (6.4-8.2); Triglyceride 79 mg/dL (<150)
[2021-05-15 09:16] LABS: Vitamin D 25 Total 43.6 ng/mL (30-100)
[2021-05-15 09:51] LABS: PHOSPHORUS 3.2 mg/dL (2.6-4.7); Uric Acid 4.5 mg/dL (3.5-7.2)
[2021-05-16 09:27] LABS: Calcium (Random Urine) 14.3 mg/dL (See Note); Magnesium Random Urine 2.7 mg/dL (See Note); Phosphorus Urine 91.9 mg/dL (See Note)
[2021-05-16 11:45] LABS: Parathyroid Hormone,Intact 55 pg/mL (19-88)
[2021-05-16 12:21] LABS: SARS-CoV-2 Spike Ab, Interp Positive (Negative); SARS-CoV-2 Spike Ab, Quant >250 U/mL (<0.80)
[2021-05-16 14:03] LABS: Tacrolimus 4.8 ng/mL (See Note)
[2021-05-17 10:09] LABS: 25-Hydroxy D Total 46 ng/mL; 25-Hydroxy D2 <4.0 ng/mL; 25-Hydroxy D3 46 ng/mL
== END 2021-05-15 04:06 | disposition home or self-care (01) ==
LOC: LBO 04:05
PROVIDERS: PCP Internal Medicine; Visit Provider Internal Medicine Nephrology
DX: E55.9 Vitamin D deficiency, unspecified (principal); Z94.0 Kidney transplant status; Z79.899 Other long term (current) drug therapy
CPT/HCPCS: 36415; 80053; 80061; 82306; 83735; 85027; 86769; 80197; 81003; 82340; 82565; 83036; 83970; 84100; 84105; 84156; 84550

== ENCOUNTER → 2021-07-23 10:56 | Outpatient (BNVA) | payer MEDICARE, BC, SELFPAY | PROVIDERS: PCP Internal Medicine; Referring Provider Internal Medicine; Visit Provider Internal Medicine Cardiovascular Disease | DX: I25.10 Atherosclerotic heart disease of native coronary artery without angina pectoris (principal); G47.33 Obstructive sleep apnea (adult) (pediatric); Z99.89 Dependence on other enabling machines and devices; Z98.890 Other specified postprocedural states; Z91.89 Other specified personal risk factors, not elsewhere classified; I10 Essential (primary) hypertension | CPT/HCPCS: 99213 ==

== ENCOUNTER 2021-10-30 02:23 | Outpatient (CLI) | payer MEDICARE, BC, SELFPAY ==
[2021-10-30 12:18] LABS: HCT 40.3 % (40.0-50.0); HGB 12.7 g/dL (13.5-17.5); MCH 26.3 pg (27.0-33.0); MCHC 31.5 % (32.0-36.0); MCV 83.6 fL (80-95); MPV 8.7 fL (8.0-11.0); Platelet Count 266 10^3/uL (130-400); RBC 4.82 10^6/uL (4.36-5.78); RDW 14.9 % (11.8-14.1); WBC 6.46 10^3/uL (4.4-10.8)
[2021-10-30 12:20] LABS: Bilirubin Negative (Negative); Blood Negative (Negative); Clarity Clear (Clear); Glucose Negative (Negative); Ketones Negative (Negative); Leukocyte Esterase Negative (Negative); Nitrite Negative (Negative); Specific Gravity >= 1.030 (1.005-1.025); pH 6.5 (5-8)
[2021-10-30 12:26] LABS: Bacteria Negative HPF (Negative); Casts 0-2 Hyaline LPF (Negative); Crystals Negative HPF (Negative); Epithelial Cells Rare HPF (Negative); Mucus Trace (Negative); RBC Negative HPF (0-2); WBC Negative HPF (0-5)
[2021-10-30 12:27] LABS: C & S Indicated? No
[2021-10-30 13:12] LABS: Prot/Crea Ur Ratio 0.14
[2021-10-30 13:22] LABS: ALT 14 U/L (16-63); AST 15 U/L (15-37); Albumin 3.1 g/dL (3.4-5.0); Alkaline Phosphatase 118 U/L (46-116); BUN 19 mg/dL (7-18); CREATININE 1.1 mg/dL (0.70-1.30); Calcium 8.8 mg/dL (8.5-10.1); Chloride 104 mmol/L (98-107); Glucose 126 mg/dL (74-106); PHOSPHORUS 3.5 mg/dL (2.6-4.7); Potassium 4.7 mmol/L (3.5-5.1); Sodium 139 mmol/L (136-145); Total Protein 6.5 g/dL (6.4-8.2); Uric Acid 4.6 mg/dL (3.5-7.2)
[2021-10-30 17:50] LABS: Cholesterol 119 mg/dL (<200)
== END 2021-10-30 02:24 | disposition home or self-care (01) ==
LOC: LBO 02:23
PROVIDERS: PCP Internal Medicine; Visit Provider Internal Medicine Nephrology
DX: Z94.0 Kidney transplant status (principal); Z79.899 Other long term (current) drug therapy; Z29.8 Encounter for other specified prophylactic measures
CPT/HCPCS: 36415; 80053; 85027; 80197; 81003; 81015; 82465; 82565; 83735; 84100; 84156; 84550

== ENCOUNTER 2022-01-23 02:34 | Outpatient (CLI) | payer MEDICARE, SELFPAY ==
[2022-01-23 09:37] LABS: HCT 43.4 % (40.0-50.0); HGB 13.9 g/dL (13.5-17.5); MCH 26.6 pg (27.0-33.0); MPV 8.6 fL (8.0-11.0); Platelet Count 241 10^3/uL (130-400); RBC 5.23 10^6/uL (4.36-5.78); RDW 15.9 % (11.8-14.1); RDW-SD 47.8 fL; WBC 6.17 10^3/uL (4.4-10.8)
[2022-01-23 09:45] LABS: Bilirubin Negative (Negative); Blood Negative (Negative); Clarity Sl Cloudy (Clear); Glucose Negative (Negative); Ketones Negative (Negative); Leukocyte Esterase Negative (Negative); Nitrite Negative (Negative); Specific Gravity 1.025 (1.005-1.025)
[2022-01-23 10:40] LABS: Cholesterol 130 mg/dL (<200)
[2022-01-23 10:41] LABS: ALT 24 U/L (16-63); AST 17 U/L (15-37); Albumin 3.2 g/dL (3.4-5.0); Alkaline Phosphatase 134 U/L (46-116); BUN 12 mg/dL (7-18); Bilirubin, Total 0.9 mg/dL (0.2-1.0); CREATININE 1.1 mg/dL (0.70-1.30); Calcium 8.7 mg/dL (8.5-10.1); Chloride 108 mmol/L (98-107); Glucose 124 mg/dL (74-106); Magnesium 1.9 mg/dL (1.8-2.4); PHOSPHORUS 3.5 mg/dL (2.6-4.7); Potassium 4.4 mmol/L (3.5-5.1); Sodium 142 mmol/L (136-145); Total Protein 6.5 g/dL (6.4-8.2); Uric Acid 4.9 mg/dL (3.5-7.2)
[2022-01-23 10:45] LABS: COMMENT (LAB VIEW ONLY) 156.81 mg/dL; PROTEIN 21.9 mg/dL; Prot/Crea Ur Ratio 0.13
[2022-01-24 09:41] LABS: Hepatitis C Ab w Rflx HCV PCR Negative (Negative)
[2022-01-31 09:54] LABS: Tacrolimus 9.6 ng/ml (See Note)
== END 2022-01-23 02:35 | disposition home or self-care (01) ==
LOC: LBO 02:35
PROVIDERS: PCP Internal Medicine; Visit Provider Internal Medicine Nephrology
DX: Z11.59 Encounter for screening for other viral diseases (principal); Z94.0 Kidney transplant status; Z79.899 Other long term (current) drug therapy
CPT/HCPCS: 36415; 80053; 85027; 86803; 80197; 81003; 82465; 82565; 83735; 84100; 84156; 84550

== ENCOUNTER 2022-04-16 02:01 | Outpatient (CLI) | payer MEDICARE, SELFPAY | END 2022-04-16 02:02 | disposition home or self-care (01) | LOC: LBO 02:01 | PROVIDERS: PCP Internal Medicine; Visit Provider Internal Medicine ==

== ENCOUNTER 2022-04-30 00:59 | Outpatient (CLI) | payer MEDICARE, SELFPAY ==
[2022-04-30 09:57] LABS: HGB 15.8 g/dL (13.5-17.5); MCH 29.6 pg (27.0-33.0); MCHC 34.3 % (32.0-36.0); MCV 86 fL (80-95); MPV 8.8 fL (8.0-11.0); Platelet Count 199 10^3/uL (130-400); RBC 5.34 10^6/uL (4.36-5.78); RDW 14.8 % (11.8-14.1); RDW-SD 46.3 fL; Reticulocyte 2.5 % (0.5-2.4)
[2022-04-30 09:59] LABS: Bilirubin Negative (Negative); Blood Negative (Negative); Clarity Clear (Clear); Glucose Negative (Negative); Ketones Negative (Negative); Leukocyte Esterase Negative (Negative); Nitrite Negative (Negative); Specific Gravity 1.025 (1.005-1.025)
[2022-04-30 10:42] LABS: ALT 26 U/L (16-63); AST 16 U/L (15-37); Albumin 3.6 g/dL (3.4-5.0); Alkaline Phosphatase 118 U/L (46-116); Anion Gap 9.1 mmol/L (3-11); BUN 11 mg/dL (7-18); Bilirubin, Total 1.3 mg/dL (0.2-1.0); CO2 24.9 mmol/L (21.0-32.0); Chloride 103 mmol/L (98-107); Glucose 120 mg/dL (74-106); Magnesium 1.8 mg/dL (1.8-2.4); PHOSPHORUS 3.1 mg/dL (2.6-4.7); Potassium 4.4 mmol/L (3.5-5.1); Sodium 137 mmol/L (136-145); Total Protein 7.4 g/dL (6.4-8.2)
[2022-04-30 10:44] LABS: Hemoglobin A1C 5.3 % (<5.7)
[2022-04-30 11:02] LABS: Calculated LDL 78 mg/dL (<100); Cholesterol 137 mg/dL (<200); HDL Cholesterol 40 mg/dL (40-60); Triglyceride 97 mg/dL (<150)
[2022-04-30 19:04] LABS: PSA, Screening 0.6 ng/mL (<=6.5)
[2022-04-30 20:27] LABS: COMMENT (LAB VIEW ONLY) 124.39 mg/dL; PROTEIN 20.4 mg/dL; Prot/Crea Ur Ratio 0.16
[2022-05-01 09:31] LABS: Magnesium Random Urine 13.1 mg/dL (See Note)
[2022-05-01 09:34] LABS: Phosphorus Urine 56.4 mg/dL (See Note)
[2022-05-01 09:48] LABS: Calcium (Random Urine) 15.2 mg/dL (See Note)
[2022-05-01 10:25] LABS: Parathyroid Hormone,Intact 77 pg/mL (19-88)
[2022-05-01 12:58] LABS: Tacrolimus 7.7 ng/mL (See Note)
[2022-05-01 17:40] LABS: SARS-CoV-2 Spike Ab, Interp Positive; SARS-CoV-2 Spike Ab, Quant >250 U/mL
[2022-05-01 23:37] LABS: BKV DNA Detect/Quant, P Undetected IU/mL (Undetected)
[2022-05-02 05:03] LABS: Vitamin D 25 Total 42.8 ng/mL (30-100)
[2022-05-03 11:23] LABS: 25-Hydroxy D Total 48 ng/mL; 25-Hydroxy D2 <4.0 ng/mL; 25-Hydroxy D3 48 ng/mL
== END 2022-04-30 01:00 | disposition home or self-care (01) ==
LOC: LBO 00:59
PROVIDERS: PCP Internal Medicine; Visit Provider Internal Medicine Nephrology
DX: E55.9 Vitamin D deficiency, unspecified (principal); N40.0 Benign prostatic hyperplasia without lower urinary tract symptoms; Z94.0 Kidney transplant status; Z79.899 Other long term (current) drug therapy; Z01.84 Encounter for antibody response examination; Z12.5 Encounter for screening for malignant neoplasm of prostate
CPT/HCPCS: 36415; 80053; 80061; 82306; 83735; 84153; 85027; 86769; 80197; 81003; 82340; 82565; 83036; 83970; 84100; 84105; 84156; 84550; 85045; 87799

== ENCOUNTER → 2022-07-29 10:37 | Outpatient (BNVA) | payer MEDICARE, SELFPAY | PROVIDERS: PCP Nurse Practitioner Adult Health; Visit Provider Internal Medicine Cardiovascular Disease | DX: G47.33 Obstructive sleep apnea (adult) (pediatric) (principal); Z99.89 Dependence on other enabling machines and devices; I25.119 Atherosclerotic heart disease of native coronary artery with unspecified angina pectoris; R06.02 Shortness of breath; I10 Essential (primary) hypertension | CPT/HCPCS: 99214 ==

== ENCOUNTER → 2022-08-15 01:15 | Outpatient (CLI) | payer MEDICARE, SELFPAY ==
--- NOTE | 2022-08-15 07:15 | DI.NM_ITS ---
APPROVED REPORT Exam: Pharmacologic Patient Location: Out-Patient Room/Bed: Stress Nurse: Ximena Acosta RN Ordering Provider:TINA MCCLOUD, Contact Number: [phone] BMI: 29.61 Baseline Rhythm: Sinus Bradycardia Comment: P and QRS inversion in aVR, t wave inversion in aVL - ST segment abnormalities Indications: CAD, GREENE Medical History Medical History: Major depressive disorder, ANA ROSA, HLD, HTN, ASCVD s/p CABG Cardiac Medications: Omeprazole, Metoprolol Succinate, Atorvastatin, ASA, Amlodipine Allergies: Aripiprazole Cardiac Risk Factors: +HTN, +HLD, +CVD Previous Cardiac Procedures: CABG x4 (2018) Pretest Chest Pain Characteristics: None Exercise History: Sedentary Physical Disabilities: None Lung Sounds: Diminished/Clear Heart Sounds: Regular Stress Test Details Test: Pharmacologic stress was paired with low level exercise. Reason for pharmacologic stress test: Unable to hold beta alondra pre test, pt stated he could only walk for 2-4 minutes. Nuclear Acquisition: Rest Tc-99m/Stress Tc-99m 1 day Rest Isotope: Tc-99m Sestamibi. Dose: 11.5 Date: 08/15/2022 Injection Time: 09:30 Stress Isotope: Tc-99m Sestamibi. Dose: 36.5 Date: 08/15/2022 Injection Time: 11:25 HR Resting HR Supine: 52 bpm Max Heart Rate (APMHR): 150 bpm Resting HR Standin bpm Target HR (85% APMHR): 127 bpm Max HR Achieved: 110 bpm % of APMHR: 73 Recovery HR: 63 bpm HR response to stress: Accelerated HR response to stress BP Resting BP Supine: 150/90 mmHg Resting BP Standin/90 mmHg Max BP: 160/88 mmHg Recovery BP: 148/84 mmHg ECG Resting ECG: Sinus Bradycardia Ectopy: None Comment: slight ST elevations noted in II, III, aVF, V6 - ST abnormalities at rest Stress ECG: Sinus Tachycardia ST Change: No significant ST segment changes noted Arrhythmia: None Comment: ST segments normal Recovery ECG: Sinus Rhythm Recovery ST Change: No significant ST segment changes noted Recovery Arrhythmia: None Clinical Stress Symptoms: Dyspnea Rate Pressure Product: 07007 Stress ECG Conclusion 1. Resting electrocardiogram was within normal limits 2. Testing was performed using a combination of low-level exercise and pharmacologic stress with rega denoson 3. Peak heart rate achieved was 73% of predicted 4. The electrocardiographic portion of the test was nondiagnostic due to inadequate heart rate 5. See MPI report Stress Test Summary STAGE HR BP SpO2 Symptoms NOTES Supine 52 150/90 Standing 67 150/90 1 min post Lexiscan injection 98 130/80 mild shortness of breath 3 min post Lexiscan injection 73 160/88 6 min post Lexiscan injection 70 146/90 9 min post Lexiscan injection 63 148/84 shortness of breath at baseline MPI Conclusion Normal myocardial perfusion without evidence of ischemia or prior infarction EF 59%, normal wall motion Radiologist Interpretation Radiologist agrees with Leguillon Debeader's Interpretation. Radiologist Interpretation by: Demarcus Hemphill MD Interpretation Date/Time: 08/15/2022 15:38:21
[2022-08-15] MEDS: Regadenoson 0.4 MG/5 ML SYR IVP (11:53)
== END ==
PROVIDERS: PCP Nurse Practitioner Adult Health; Visit Provider Internal Medicine Cardiovascular Disease
DX: R06.02 Shortness of breath (principal)
CPT/HCPCS: 78452; 93016; 93018; 93017; J2785

== ENCOUNTER → 2022-08-22 14:17 | Outpatient (CLI) | payer MEDICARE, SELFPAY ==
--- NOTE | 2022-08-22 14:53 | DI.US_ITS ---
APPROVED REPORT EXAM: Comprehensive 2D, Doppler, and color-flow Echocardiogram Patient Location: Out-Patient Application Integration Specialist: Toshia Lua RDCS (AE) Indications: Exertional Dyspnea, CAD, CABG Other Information Study Quality: Adequate Conclusion Normal left ventricular wall thickness and chamber size. Estimated ejection fraction of 55 to 60%. Wall motion is normal Normal right ventricular size and systolic function Both atria are normal in size Aortic valve is mildly sclerotic and trileaflet with trace to mild regurgitation Normal mitral valve with trace regurgitation Normal tricuspid valve with mild to moderate regurgitation. Estimated right ventricular systolic pre ssure is 28 mmHg Aortic root is moderately dilated measuring 4.09 cm. The ascending aorta is dilated measuring 4.2 cm Wall motion Left Ventricle The left ventricle is normal size. The left ventricular systolic function is normal. The left ventric ular ejection fraction is within the normal range. There is normal left ventricular wall thickness. T here is normal LV segmental wall motion. There is no ventricular septal defect visualized. LVEF is 58 %. Right Ventricle The right ventricle is normal size. The right ventricular systolic function is normal. The RVSP is 28 .4 mmHg. Atria The left atrium size is normal. The right atrium size is normal. The interatrial septum is intact wit h no evidence for an atrial septal defect. Aortic Valve The Aortic valve is mildly sclerotic. There is no aortic valvular stenosis. Trace to mild aortic regu rgitation. Mitral Valve The mitral valve is normal in structure. No evidence of mitral valve stenosis. Trace mitral regurgita tion. Tricuspid Valve The tricuspid valve is normal in structure. There is no tricuspid valve stenosis. Mild to moderate tr icuspid regurgitation. Pulmonic Valve The pulmonary valve is normal in structure. There is no pulmonic valvular stenosis. Mild pulmonic reg urgitation. Great Vessels Aortic root is moderately dilated. The ascending aorta is dilated. Aortic arch is not well visualized . IVC is normal in size and collapses >50% with inspiration. Pericardium There is no pericardial effusion. 2D Dimensions IVSD d PLAX 1.01 cm M: 0.6-1.2 LV Vol A2C d MOD 100.5 mL LVPW d PLAX 1.01 cm M: 0.6 - 1.2 LV Vol A4C d MOD 99.2 mL LVID d PLAX 4.65 cm M: 4.2 - 5.8 LA vol/ BSA A2C s A-L 24.7 mL/m2 LVDs 3.30 cm M: 2.5 - 4.0 LA vol/ BSA A4C s A-L 12.9 mL/m2 Ao Root d 4.09 cm M: 3.1 - 3.7 LA Vol/ BSA Biplane s A-L 18.9 mL/m2 RA Area A4C 13.90 cm2 LA Area A4C s MOD 13.33 cm2 RA Vol/ BSA A4C s A-L 15.4 mL/m2 LA Area A2C s MOD 19.54 cm2 Ao Asc Diam d 4.20 cm M: 2.6 - 3.4 LV EF A4C MOD 57.2 % LV EF Teichholz 55.1 % LV EF A2C MOD 57.9 % LVEF (Hogan's) 57.60 % M: 52 - 72 LV EF Biplane MOD 57.6 % LV Volume 71.68 mL M: 62 - 150 SV 57.96 mL LV Volume Index 30.50 mL/m2 M: 34 - 74 SV Index 24.62 mL/m2 LV Vol Biplane MOD 100.6 mL FS 28.55 % M-Mode TAPSE 1.71 cm (M/F) >1.7 LV Diastology MV E' medial 0.085 (>0.07 m/s) E/A Ratio 0.6 LV E/e MED 5.55 (<14) MV E Vmax 0.47 (0.4-1.3 m/s) MV E' lateral 0.075 (>0.1 m/s) MV A Vmax 0.80 (0.4-1.3 m/s) LV E/e LAT 6.25 (<14) MV E/A Ratio 0.59 MV E/E' medial 5.56 MV E/E' lateral 6.28 Aortic Valve LVOT Area 3.41 cm2 AoV Area Vmax 1.87 cm2 LVOT Vmax 0.96 m/s AoV Area/ BSA (Vmax) 0.80 cm2/m2 LVOT Mean Dada. 0.69 m/s ERICKA Mean Dada. 2.05 cm2 LVOT Peak Grad 3.7 mmHg ERICKA Mean Dada. Index 0.87 cm2/m2 LVOT Mean Grad 2.1 mmHg AR DT 1680 msec LVOT VTI 0.170 m AR PHT 487 msec LVOT Diam s 2.05 cm AoV Vmax 1.76 m/s Velocity Ratio 0.54 AoV Mean Dada. 1.15 m/s AoV Peak Grad 12.4 mmHg LVOT SV 58.13 mL AoV Mean Grad 6.0 mmHg AoV VTI 0.238 m AoV Area VTI 2.45 cm2 AoV Area/ BSA (VTI) 1.04 cm/m2 Mitral Valve MV DT 311 (160-240 msec) MV PHT 90 msec MV Area PHT 2.44 cm2 Pulmonary Valve PV Vmax 0.93 (0.5-1.5 m/s) RVOT Peak Gr. 1.49 mmHg PV Peak Grad 3.5 mmHg RVOT Mean Gr. 0.75 mmHg PV Mean Grad 2.0 mmHg RVOT VTI 0.106 m PV VTI 0.151 m RVOT Vmax 0.61 m/s Tricuspid Valve TR Peak Grad 25.3 mmHg TR Vmax 2.52 m/s RA Pressure 3.00 mmHg RVSP (TR) 28.4 mmHg
== END ==
PROVIDERS: PCP Nurse Practitioner Adult Health; Visit Provider Internal Medicine Cardiovascular Disease
DX: R06.02 Shortness of breath (principal)
CPT/HCPCS: 93306

== ENCOUNTER 2022-11-01 01:10 | Outpatient (CLI) | payer MEDICARE, SELFPAY ==
[2022-11-01 13:00] LABS: HCT 44.1 % (40.0-50.0); HGB 15.1 g/dL (13.5-17.5); MCH 29.9 pg (27.0-33.0); MCHC 34.2 % (32.0-36.0); MCV 87 fL (80-95); MPV 8.6 fL (8.0-11.0); Platelet Count 176 10^3/uL (130-400); RBC 5.05 10^6/uL (4.36-5.78); RDW 13.3 % (11.8-14.1); RDW-SD 42.5 fL; WBC 7.62 10^3/uL (4.4-10.8)
[2022-11-01 13:02] LABS: Bilirubin Negative (Negative); Blood Negative (Negative); Clarity Cloudy (Clear); Glucose Negative (Negative); Ketones Negative (Negative); Leukocyte Esterase Negative (Negative); Nitrite Negative (Negative); pH 7.5 (5-8)
[2022-11-01 13:22] LABS: COMMENT (LAB VIEW ONLY) 125.57 mg/dL; PROTEIN 19.9 mg/dL; Prot/Crea Ur Ratio 0.15
[2022-11-01 13:27] LABS: ALT 23 U/L (16-63); AST 19 U/L (15-37); Albumin 3.6 g/dL (3.4-5.0); Alkaline Phosphatase 115 U/L (46-116); Anion Gap 6.4 mmol/L (3-11); BUN 15 mg/dL (7-18); Bilirubin, Total 1.4 mg/dL (0.2-1.0); CO2 27.6 mmol/L (21.0-32.0); CREATININE 1.1 mg/dL (0.70-1.30); Calcium 9.2 mg/dL (8.5-10.1); Chloride 105 mmol/L (98-107); Estimated GFR 71.77 (mL/min/1.73m2); Glucose 114 mg/dL (74-106); PHOSPHORUS 3.4 mg/dL (2.6-4.7); Potassium 4.4 mmol/L (3.5-5.1); Sodium 139 mmol/L (136-145); Total Protein 7.2 g/dL (6.4-8.2)
[2022-11-01 13:58] LABS: Cholesterol 161 mg/dL (<200)
[2022-11-05 13:23] LABS: Tacrolimus 5.5 ng/mL (See Note)
== END 2022-11-01 01:11 | disposition home or self-care (01) ==
PROVIDERS: PCP Nurse Practitioner Adult Health; Visit Provider Internal Medicine Nephrology
DX: Z94.0 Kidney transplant status (principal); Z79.899 Other long term (current) drug therapy
CPT/HCPCS: 36415; 80053; 80197; 85027; 81003; 82465; 82565; 83735; 84100; 84156; 84550

== ENCOUNTER 2022-12-30 13:08 | Outpatient (REF) | payer MEDICARE, SELFPAY ==
[2022-12-30 17:26] LABS: Folate 12.5 ng/mL (8.6-20.0); TSH (W/Ref FT4) 3.26 uIU/mL (0.36-3.74); Vitamin B12 453 pg/mL (193-986)
== END 2022-12-30 13:09 | disposition home or self-care (01) ==
LOC: LBN 13:08
PROVIDERS: PCP Nurse Practitioner Adult Health; Visit Provider Nurse Practitioner Adult Health
DX: F33.1 Major depressive disorder, recurrent, moderate (principal); G47.10 Hypersomnia, unspecified; Z79.899 Other long term (current) drug therapy
CPT/HCPCS: 82607; 82746; 84443

== ENCOUNTER 2023-01-22 02:59 | Outpatient (CLI) | payer MEDICARE, SELFPAY ==
[2023-01-22 13:13] LABS: HGB 16.3 g/dL (13.5-17.5); MCH 29.7 pg (27.0-33.0); MCV 87 fL (80-95); MPV 8.7 fL (8.0-11.0); Platelet Count 207 10^3/uL (130-400); RBC 5.49 10^6/uL (4.36-5.78); RDW 13.7 % (11.8-14.1); RDW-SD 43.5 fL; WBC 6.51 10^3/uL (4.4-10.8)
[2023-01-22 13:29] LABS: COMMENT (LAB VIEW ONLY) 180.14 mg/dL; Prot/Crea Ur Ratio 0.18
[2023-01-22 13:33] LABS: Cholesterol 130 mg/dL (<200)
[2023-01-22 13:37] LABS: ALT 22 U/L (16-63); AST 14 U/L (15-37); Albumin 3.6 g/dL (3.4-5.0); Alkaline Phosphatase 111 U/L (46-116); Anion Gap 8.5 mmol/L (3-11); BUN 20 mg/dL (7-18); Bilirubin, Total 1.3 mg/dL (0.2-1.0); CO2 27.5 mmol/L (21.0-32.0); CREATININE 1.2 mg/dL (0.70-1.30); Calcium 9.1 mg/dL (8.5-10.1); Chloride 103 mmol/L (98-107); Estimated GFR 64.65 (mL/min/1.73m2); Glucose 128 mg/dL (74-106); Magnesium 1.8 mg/dL (1.8-2.4); PHOSPHORUS 3.3 mg/dL (2.6-4.7); Potassium 3.9 mmol/L (3.5-5.1); Sodium 139 mmol/L (136-145); Total Protein 7.3 g/dL (6.4-8.2)
[2023-01-22 14:15] LABS: Bilirubin Negative (Negative); Blood Negative (Negative); Clarity Clear (Clear); Glucose Negative (Negative); Ketones Negative (Negative); Leukocyte Esterase Negative (Negative); Nitrite Negative (Negative); Specific Gravity >= 1.030 (1.005-1.025); pH 6.5 (5-8)
[2023-01-22 14:31] LABS: Epithelial Cells Few HPF (Negative); Other Cells Few Transitional (Negative)
[2023-01-22 14:33] LABS: Bacteria Few HPF (Negative); C & S Indicated? No; Casts Negative LPF (Negative); Crystals Negative HPF (Negative); Mucus Trace (Negative); RBC 0-2 HPF (0-2); WBC Negative HPF (0-5)
[2023-01-23 13:56] LABS: Tacrolimus 6.5 ng/mL (See Note)
== END 2023-01-22 03:00 | disposition home or self-care (01) ==
LOC: LBO 02:59
PROVIDERS: PCP Nurse Practitioner Adult Health; Visit Provider Internal Medicine Nephrology
DX: Z94.0 Kidney transplant status (principal); Z79.899 Other long term (current) drug therapy
CPT/HCPCS: 36415; 80053; 85027; 80197; 81003; 81015; 82465; 82565; 83735; 84100; 84156; 84550

== ENCOUNTER 2023-04-17 03:04 | Outpatient (CLI) | payer MEDICARE, SELFPAY ==
[2023-04-17 11:15] LABS: HGB 15.4 g/dL (13.5-17.5); MCHC 34.2 % (32.0-36.0); MCV 88 fL (80-95); MPV 8.6 fL (8.0-11.0); Platelet Count 197 10^3/uL (130-400); RBC 5.14 10^6/uL (4.36-5.78); RDW 13.4 % (11.8-14.1); Reticulocyte 2.9 % (0.5-2.4); WBC 6.51 10^3/uL (4.4-10.8)
[2023-04-17 11:24] LABS: Bilirubin Negative (Negative); Blood Negative (Negative); Clarity Clear (Clear); Glucose Negative (Negative); Ketones Negative (Negative); Leukocyte Esterase Negative (Negative); Nitrite Negative (Negative); pH 6.5 (5-8)
[2023-04-17 11:36] LABS: ALT 28 U/L (16-63); AST 18 U/L (15-37); Albumin 3.4 g/dL (3.4-5.0); Alkaline Phosphatase 110 U/L (46-116); Anion Gap 4.8 mmol/L (3-11); BUN 15 mg/dL (7-18); CO2 27.2 mmol/L (21.0-32.0); CREATININE 1.1 mg/dL (0.70-1.30); Calcium 8.8 mg/dL (8.5-10.1); Calculated LDL 74 mg/dL (<100); Chloride 105 mmol/L (98-107); Cholesterol 129 mg/dL (<200); Estimated GFR 71.77 (mL/min/1.73m2); Glucose 125 mg/dL (74-106); HDL Cholesterol 39 mg/dL (40-60); Magnesium 1.7 mg/dL (1.8-2.4); Potassium 4.4 mmol/L (3.5-5.1); Sodium 137 mmol/L (136-145); Total Protein 7.3 g/dL (6.4-8.2); Triglyceride 82 mg/dL (<150)
[2023-04-17 11:46] LABS: PHOSPHORUS 3.3 mg/dL (2.6-4.7); Uric Acid 4.6 mg/dL (3.5-7.2)
[2023-04-17 11:49] LABS: COMMENT (LAB VIEW ONLY) 121.29 mg/dL; PROTEIN 14.2 mg/dL; Prot/Crea Ur Ratio 0.11
[2023-04-17 11:59] LABS: Vitamin D 25 Total 40.7 ng/mL (30-100)
[2023-04-17 23:54] LABS: Parathyroid Hormone,Intact 89 pg/mL (19-88)
[2023-04-18 09:39] LABS: Phosphorus Urine 61.2 mg/dL (See Note)
[2023-04-18 09:42] LABS: Magnesium Random Urine 13.9 mg/dL (See Note)
[2023-04-18 13:13] LABS: Tacrolimus 7.7 ng/mL (See Note)
[2023-04-19 09:30] LABS: Calcium, Random Ur 19 mg/dL; Creatinine, Random Ur 124 mg/dL (16 - 326)
[2023-04-19 18:56] LABS: BKV DNA Detect/Quant, P Undetected IU/mL (Undetected)
[2023-04-22 12:00] LABS: 1,25-Dihydroxyvitamin D 49 pg/mL (18-64)
== END 2023-04-17 03:05 | disposition home or self-care (01) ==
LOC: LBO 03:04
PROVIDERS: PCP Nurse Practitioner Adult Health; Visit Provider Internal Medicine Nephrology
DX: E55.9 Vitamin D deficiency, unspecified (principal); Z79.899 Other long term (current) drug therapy; T86.19 Other complication of kidney transplant; Z94.0 Kidney transplant status; Z29.8 Encounter for other specified prophylactic measures
CPT/HCPCS: 36415; 80053; 80061; 82306; 82310; 83735; 85027; 80197; 81003; 82565; 82652; 83036; 83970; 84100; 84105; 84156; 84550; 85045; 87799

== ENCOUNTER 2023-06-05 08:58 | Outpatient (CLI) | payer MEDICARE, SELFPAY ==
--- NOTE | 2023-06-05 08:45 | RT.EKG_ITS ---
APPROVED REPORT Exam: Resting ECG Reason for Exam: ASCVD Patient Location: O HR:62 bpm ECG Measurements Heart Rate 62 AXIS WA 164 P 11 QRSd 94 QRS 50 QT 407 T 65 QTc 414 Conclusion Sinus rhythm...normal P axis, V-rate 50- 99 Borderline low voltage, extremity leads...all extremity leads <0.6mV Otherwise normal ECG
== END 2023-06-05 08:59 | disposition home or self-care (01) ==
LOC: DI.CARD 09:03
PROVIDERS: PCP Nurse Practitioner Adult Health; Visit Provider Internal Medicine Cardiovascular Disease
DX: I25.119 Atherosclerotic heart disease of native coronary artery with unspecified angina pectoris (principal)
CPT/HCPCS: 93010

== ENCOUNTER → 2023-06-05 15:23 | Outpatient (BNVA) | payer MEDICARE, SELFPAY | PROVIDERS: PCP Nurse Practitioner Adult Health; Referring Provider Nurse Practitioner Adult Health; Visit Provider Internal Medicine Cardiovascular Disease | DX: Z01.810 Encounter for preprocedural cardiovascular examination (principal); N40.0 Benign prostatic hyperplasia without lower urinary tract symptoms; Z94.0 Kidney transplant status; Z95.1 Presence of aortocoronary bypass graft; I10 Essential (primary) hypertension | CPT/HCPCS: 93005; 99214; 99213 ==

== ENCOUNTER 2023-06-24 03:37 | Outpatient (CLI) | payer MEDICARE, SELFPAY ==
[2023-06-24 12:50] LABS: HCT 45.1 % (40.0-50.0); HGB 15.3 g/dL (13.5-17.5); MCH 29.7 pg (27.0-33.0); MCHC 33.9 % (32.0-36.0); MCV 88 fL (80-95); MPV 8.5 fL (8.0-11.0); Platelet Count 216 10^3/uL (130-400); RBC 5.15 10^6/uL (4.36-5.78); RDW 13.7 % (11.8-14.1); RDW-SD 43.8 fL; WBC 6.98 10^3/uL (4.4-10.8)
[2023-06-24 12:54] LABS: Bilirubin Negative (Negative); Blood Negative (Negative); Clarity Clear (Clear); Glucose Negative (Negative); Ketones Negative (Negative); Leukocyte Esterase Negative (Negative); Nitrite Negative (Negative)
[2023-06-24 13:40] LABS: COMMENT (LAB VIEW ONLY) 84.95 mg/dL; PROTEIN 11.2 mg/dL; Prot/Crea Ur Ratio 0.13
[2023-06-24 13:43] LABS: Cholesterol 128 mg/dL (<200)
[2023-06-24 13:44] LABS: ALT 21 U/L (16-63); AST 16 U/L (15-37); Albumin 3.7 g/dL (3.4-5.0); Alkaline Phosphatase 111 U/L (46-116); Anion Gap 7.7 mmol/L (3-11); BUN 14 mg/dL (7-18); Bilirubin, Total 1.2 mg/dL (0.2-1.0); CO2 29.3 mmol/L (21.0-32.0); CREATININE 1.1 mg/dL (0.70-1.30); Calcium 9.1 mg/dL (8.5-10.1); Chloride 105 mmol/L (98-107); Estimated GFR 71.77 (mL/min/1.73m2); Glucose 104 mg/dL (74-106); PHOSPHORUS 3.4 mg/dL (2.6-4.7); Potassium 4.1 mmol/L (3.5-5.1); Sodium 142 mmol/L (136-145); Total Protein 7.4 g/dL (6.4-8.2); Uric Acid 4.7 mg/dL (3.5-7.2)
[2023-06-25 13:41] LABS: Tacrolimus 4.8 ng/mL (See Note)
== END 2023-06-24 03:38 | disposition home or self-care (01) ==
LOC: LBO 03:37
PROVIDERS: PCP Nurse Practitioner Adult Health; Visit Provider Internal Medicine Nephrology
DX: Z94.0 Kidney transplant status (principal); Z48.22 Encounter for aftercare following kidney transplant
CPT/HCPCS: 36415; 80053; 85027; 80197; 81003; 82465; 82565; 83735; 84100; 84156; 84550

== ENCOUNTER 2023-08-27 04:11 | Outpatient (CLI) | payer MEDICARE, SELFPAY ==
[2023-08-27 11:01] LABS: Abs Immature Grans 0.02 10^3/uL (0.0-0.06); Absolute Basophil Count 0.04 10^3/uL (0.0-0.2); Absolute Eosinophil Count 0.17 10^3/uL (0.0-0.7); Absolute Lymphocyte Count 0.89 10^3/uL (1.2-3.4); Absolute Monocyte Count 0.34 10^3/uL (0.1-0.8); Absolute Neutrophil Count 3.56 10^3/uL (1.2-6.7); Basophils % 0.8; Eosinophils % 3.4; HCT 44.8 % (40.0-50.0); HGB 15.2 g/dL (13.5-17.5); Immature Grans % 0.4; Lymphocytes % 17.7; MCH 29.6 pg (27.0-33.0); MCHC 33.9 % (32.0-36.0); MCV 87 fL (80-95); MPV 8.7 fL (8.0-11.0); Monocytes % 6.8; Neutrophils % 70.9; Platelet Count 173 10^3/uL (130-400); RBC 5.14 10^6/uL (4.36-5.78); RDW 13.8 % (11.8-14.1); RDW-SD 44.5 fL; WBC 5.02 10^3/uL (4.4-10.8)
[2023-08-27 11:03] LABS: Bilirubin Negative (Negative); Blood Negative (Negative); Clarity Clear (Clear); Glucose Negative (Negative); Ketones Negative (Negative); Leukocyte Esterase Negative (Negative); Nitrite Negative (Negative); Specific Gravity 1.015 (1.005-1.025)
[2023-08-27 11:12] LABS: COMMENT (LAB VIEW ONLY) 52.81 mg/dL; PROTEIN 9.1 mg/dL; Prot/Crea Ur Ratio 0.17
[2023-08-27 11:16] LABS: Magnesium 2.1 mg/dL (1.8-2.4); PHOSPHORUS 3.3 mg/dL (2.6-4.7); Uric Acid 4.4 mg/dL (3.5-7.2)
[2023-08-27 11:25] LABS: Cholesterol 120 mg/dL (<200)
[2023-08-27 14:08] LABS: ALT 21 U/L (16-63); AST 16 U/L (15-37); Albumin 3.3 g/dL (3.4-5.0); Alkaline Phosphatase 101 U/L (46-116); Anion Gap 7.7 mmol/L (3-11); BUN 11 mg/dL (7-18); Bilirubin, Total 1.1 mg/dL (0.2-1.0); CO2 25.3 mmol/L (21.0-32.0); CREATININE 1.1 mg/dL (0.70-1.30); Calcium 8.9 mg/dL (8.5-10.1); Chloride 103 mmol/L (98-107); Estimated GFR 71.32 (mL/min/1.73m2); Glucose 117 mg/dL (74-106); Potassium 4.2 mmol/L (3.5-5.1); Sodium 136 mmol/L (136-145)
[2023-08-28 13:51] LABS: Tacrolimus 4.8 ng/mL (See Note)
== END 2023-08-27 04:12 | disposition home or self-care (01) ==
LOC: LBO 04:11
PROVIDERS: PCP Nurse Practitioner Adult Health; Visit Provider Internal Medicine Nephrology
DX: Z94.0 Kidney transplant status (principal); Z79.899 Other long term (current) drug therapy
CPT/HCPCS: 36415; 80053; 80197; 81003; 82465; 82565; 83735; 84100; 84156; 84550; 85025

== ENCOUNTER → 2023-10-13 12:56 | Outpatient (BNVA) | payer MEDICARE, SELFPAY | PROVIDERS: PCP Nurse Practitioner Adult Health; Referring Provider Nurse Practitioner Adult Health; Visit Provider Surgery | DX: Z12.11 Encounter for screening for malignant neoplasm of colon (principal); K57.30 Diverticulosis of large intestine without perforation or abscess without bleeding; Z94.0 Kidney transplant status ==

== ENCOUNTER 2023-10-28 09:59 | Day surgery (SDC) | payer MEDICARE, SELFPAY ==
[2023-10-28 10:15] VITALS: BP 135/92; PULSE 72; RESP 18; TEMP 36.3; O2SAT 98
--- NOTE | 2023-10-28 10:33 | W.COLOREPORT ---
Date of service: 10/28/23 Time of Service: 12:56 Colonoscopy Report Procedure Description: PROCEDURES PERFORMED: 1. Colonoscopy PREOPERATIVE DIAGNOSIS: Screening colonoscopy POSTOPERATIVE DIAGNOSIS: Diverticulosis SURGEON: Yael Woodward MD INDICATION for procedure: 73-year-old man who does not have any symptoms due for a surveillance colonoscopy. His last one was 5 years ago and notable for diverticulosis only. He does not have a family history of colon cancer. He is chronically immunosuppressed from kidney transplant history. FINDINGS: Normal terminal ileum. No polyps. No inflammation. Diverticular changes are present in the left colon. No active inflammation. No significant hemorrhoidal disease. SURVEILLANCE-INTERVAL/FOLLOW-UP: Should stay on a 5-year interval until his PCP and him believe a 5-year life expectancy no longer exists. Specimens: None EBL: Minimal COMPLICATIONS: None QUALITY of prep: Excellent Procedure in detail: The patient gave written consent and was in agreement with the indications, the potential risks as well as the benefits of the procedure. They were taken to the endoscopy suite and laid in the left lateral decubitus position. A timeout was performed and anesthesia was administered which was tolerated well. I started the procedure. Digital rectal and visual examination was performed and grossly within normal limits. A well-lubricated flexible colonoscope was then introduced and passed without any notable difficulty all the way to the cecum identified by the ileocecal valve and the appendiceal orifice. The terminal ileum was briefly intubated and looked normal visually. The scope was then slowly withdrawn with the above-noted findings. The patient tolerated the procedure well and was taken to the PACU in hemodynamically stable condition.
--- NOTE | 2023-10-28 10:38 | W.PM.DSUDISC ---
Date of service: 10/28/23 Time of Service: 10:38 Discharge Plan Disposition Patient Disposition: Home Condition: Good Discharge Details Attending Provider: John Woodward Primary Care Provider: Melonie Hazel Home Meds and New Rx's Prescriptions: No Action clonidine HCl 0.1 mg tablet 0.1 mg PO BID Qty: 180 3RF donepezil 10 mg tablet 10 mg PO DAILY Qty: 90 ciclopirox 8 % solution 1 applic topical DAILY 90 Days Qty: 6.6 3RF clotrimazole-betamethasone 1-0.05 % cream 1 applic topical BID Qty: 45 4RF Ingrezza 80 mg capsule 80 mg PO DAILY tamsulosin [Flomax] 0.4 mg capsule 0.4 mg PO DAILY Rx Instructions: 07/12/21-pt reports now takes this BID [facility] Urology 09/18/21- pt reports he self decreased dose to QD venlafaxine 150 mg tablet extended release 24hr 150 mg PO QAM Qty: 90 3RF Hold Instructions: Home Medication placed on hold at Doctor's office Rx Instructions: take with 75mg for total dose of 225mg a day lisdexamfetamine [Vyvanse] 20 mg capsule 20 mg PO QAM MDD 20mg/24h Qty: 28 0RF lisdexamfetamine [Vyvanse] 20 mg capsule 20 mg PO QAM MDD 20mg/24hr Qty: 28 0RF lisdexamfetamine [Vyvanse] 20 mg capsule 20 mg PO QAM MDD 20mg/24h Qty: 28 0RF cholecalciferol (vitamin D3) [Vitamin D3] 2,000 UNIT capsule 2,000 unit PO DAILY Qty: 90 acetaminophen 325 MG tablet 325 - 650 mg PO Q4H PRN Rx Instructions: 1-2 tabs amoxicillin 500 MG tablet 2 g PO ONCE Patient Comments: pt takes this pre dental appoitnment and states that the last time he took it was around 8 months ago Rx Instructions: prior to dental work. aspirin [Aspir-81] 81 MG tablet,delayed release (DR/EC) 81 mg PO DAILY omega-3 fatty acids 1,000 mg capsule 1,000 mg PO BID Patient Comments: per Dr. Catarina pimentel magnesium amino acid chelate 100 mg tablet 200 mg PO BID Rx Instructions: total 4 tabs daily. Catarina Granger MD Sleep clinic - 06/11/21 metoprolol succinate 50 mg tablet extended release 24 hr 50 mg PO DAILY Qty: 90 3RF amlodipine 5 mg tablet 5 mg PO DAILY Qty: 90 3RF atorvastatin 40 mg tablet 40 mg PO DAILY Qty: 90 3RF omeprazole 40 mg capsule,delayed release(DR/EC) 40 mg PO DAILY Qty: 90 3RF polyethylene glycol 3350 [Miralax] 17 gram/dose powder 17 g PO BID PRN (Reason: constipation) Qty: 510 0RF Rx Instructions: 1 tablespoon daily and increase as needed to comfort level; up to 17gm BID prn tacrolimus [Prograf] 0.5 mg capsule 0.5 mg PO BID Patient Comments: Dr Barcenas, [facility] Rx Instructions: 0.5mg BID [facility] Transplant note 05/07/23 bisacodyl [Dulcolax (bisacodyl)] 5 mg tablet,delayed release (DR/EC) 5 mg PO ONCE Qty: 4 0RF Rx Instructions: Take per colonoscopy instructions provided by ordering providers office polyethylene glycol 3350 17 gram/dose powder 17 g PO ONCE Qty: 238 0RF Rx Instructions: Take per colonoscopy instructions provided by ordering providers office Discharge Instructions Additional Instructions: FINDINGS: No polyps were found. No tumors. No inflammation. You have significant diverticular disease which is extremely common, benign and nothing needs to be done about it. This was seen on your last colonoscopy and is NOT a new finding. Stand Alone Forms: Colonoscopy Post Instructions, Nicole Salcido (LINA) Activity:: Activity as Tolerated Diet:: As Tolerated
--- NOTE | 2023-10-28 10:56 | W.ANESPRE ---
General Info Date of Service Date Performed: 10/28/23 Height: 6 ft 3 in Weight: 107.7 kg Body Mass Index (BMI): 29.7 Surgical Procedure: Operation Date: 10/28/23 11:20 Proposed Procedure Side Surgeon heath Woodward MD Meds Allergies and Home Medications Allergies Allergy/AdvReac Type Severity Reaction Status Date / Time aripiprazole AdvReac Severe tardive Verified 10/28/23 10:24 dyskinesia methylphenidate AdvReac Bruxism Verified 10/28/23 10:24 (stopped with this med discontinued) Home Medication Medication Instructions Recorded cholecalciferol (vitamin D3) 50 2,000 unit PO DAILY ##90 01/20/13 mcg (2,000 unit) capsule (Vitamin D3) acetaminophen 325 mg tablet 325 - 650 mg PO Q4H PRN 05/06/13 amoxicillin 500 mg tablet 2 g PO ONCE 10/17/14 aspirin 81 mg tablet,delayed 81 mg PO DAILY 04/05/16 release (Aspir-) omega-3 fatty acids 1,000 mg 1,000 mg PO BID 02/08/19 capsule clonidine HCl 0.1 mg tablet 0.1 mg PO BID #180 tabs 06/27/20 magnesium amino acid chelate 100 200 mg PO BID 06/12/21 mg tablet valbenazine 80 mg capsule 80 mg PO DAILY grinding teeth 07/04/21 (Ingrezza) tamsulosin 0.4 mg capsule (Flomax) 0.4 mg PO DAILY 09/19/21 metoprolol succinate 50 mg 50 mg PO DAILY #90 tabs 11/18/22 tablet,extended release 24 hr venlafaxine 150 mg tablet,extended 150 mg PO QAM #90 tabs 12/30/22 release 24 hr amlodipine 5 mg tablet 5 mg PO DAILY #90 tabs 01/22/23 atorvastatin 40 mg tablet 40 mg PO DAILY #90 tab-caps 01/22/23 omeprazole 40 mg capsule,delayed 40 mg PO DAILY #90 tab-caps 01/22/23 release polyethylene glycol 3350 17 17 g PO BID PRN constipation #510 01/22/23 gram/dose oral powder (Miralax) grams ciclopirox 8 % topical solution 1 applic topical DAILY toenail 04/11/23 fungus 90 days #6.6 mL clotrimazole-betamethasone 1 1 applic topical BID skin fungus 04/11/23 %-0.05 % topical cream #45 grams donepezil 10 mg tablet 10 mg PO DAILY #90 tabs 04/21/23 tacrolimus 0.5 mg capsule, 0.5 mg PO BID 05/14/23 immediate-release (Prograf) lisdexamfetamine 20 mg capsule 20 mg PO QAM #28 caps 10/01/23 (Vyvanse) lisdexamfetamine 20 mg capsule 20 mg PO QAM #28 caps 10/01/23 (Vyvanse) lisdexamfetamine 20 mg capsule 20 mg PO QAM #28 caps 10/01/23 (Vyvanse) bisacodyl 5 mg tablet,delayed 5 mg PO ONCE #4 tabs 10/23/23 release (Dulcolax (bisacodyl)) polyethylene glycol 3350 17 17 g PO ONCE #238 grams 10/23/23 gram/dose oral powder Current Visit Medications: Current Medications Generic Name Dose Route Start Last Admin Trade Name Wilder PRN Reason Stop Dose Admin Ringer's Solution 1,000 mls @ 80 mls/hr 10/28/23 06:00 IV 10/28/23 23:59 INFUSION DOROTA IV Miscellaneous Supplies 1 each 10/28/23 06:00 Iv Access IV 10/28/23 23:59 DIRECTED DOROTA Sodium Chloride 0 ml 10/28/23 06:00 Normal Saline Flush 10 Ml Syr IV 10/28/23 23:59 PRN PRN Sodium Chloride 0 ml 10/28/23 06:00 Normal Saline 10 Ml Vial IJ 10/28/23 23:59 DIRECTED PRN Sterile Water 0 ml 10/28/23 06:00 Water,Injection,Sterile 10 Ml Vial IJ 10/28/23 23:59 DIRECTED PRN PFSH Active Problems Active Problems: Problem Status Onset Code Long-term current use of stimulant ~2022 Z79.899 Ulcer of left foot with fat layer exposed L97.522 Screening for colorectal cancer Z12.11, Z12.12 prison current use of immunosuppressive drug Z79.899 Tinea pedis B35.3 Atherosclerosis of artery of both lower extremities I70.203 Tinea unguium B35.1 Toe pain, right M79.674 Toe pain, left M79.675 Hypersomnolence ~2022 G47.10 Shortness of breath R06.02 Family history of prostate cancer Z80.42 Tardive dyskinesia G24.01 Impaired fasting glucose R73.01 Elevated prostate specific antigen [PSA] R97.20 Lower urinary tract symptoms (LUTS) R39.9 ADHD (attention deficit hyperactivity disorder), combined type ~2018 F90.2 Major depressive disorder, recurrent, moderate F33.1 Slow transit constipation 03/12/17 K59.01 Polycystic liver disease 10/17/14 Q44.6 ANA ROSA (obstructive sleep apnea) 04/26/15 G47.33 Hyperlipidemia 11/25/11 E78.5 BPH w urinary obs/LUTS 11/25/11 N40.1, N13.8 Essential hypertension 08/13/13 I10 Dermatophytosis 11/25/11 B35.9 Complication of transplanted kidney 11/25/11 T86.10 BPH w/o urinary obs/LUTS 11/25/11 N40.0 Atherosclerosis of campo coronary artery of campo heart with angina pectoris 02/10/18 I25.119 Medical History Medical History Basal cell carcinoma of left elbow (~09/2023) Dr Griffith Hyperkeratosis 06/11/22 [facility] SARS-CoV-2 positive (~02/22/22) Actinic keratosis 01/14/22 [facility] [place] History of malignant melanoma 01/14/22 [facility] [place] History of squamous cell carcinoma per [facility] [place] from 07/10/21 06/11/22 6m Derm visit History of basal cell carcinoma Per [facility] note from 07/10/21 Bruxism (teeth grinding) Dyspnea on exertion Malignant melanoma of neck (04/15/17) Biospy positive for malignant melanoma of neck and back. Dr Griffith Low back pain with sciatica (11/25/11) Lumbago (11/25/11) Depressive disorder, not elsewhere classified (11/25/11) vs adjustment disorder Chronic cough Onychomycosis Insomnia Status post bilateral nephrectomies Polycystic kidney disease s/p b/l nephrectomies Surgical History Surgical History History of surgery of liver Lap Marsupialization Liver Cyst [facility] [place] 10/03/14 Status post bilateral hernia repair H/O kidney transplant LEFT 20O9 History of nephrectomy, left (~2008) 2008 History of nephrectomy, right (~2009) 2009 Colonoscopy - MAC (11/28/17) CABG X4 (02/16/18) Tobacco Smoking/Tobacco Use Status: Never Alcohol Alcohol Intake: former Details: use of alcohol >10 years ago Substance Use Substance use: Never Substance use type: does not use Vital Signs and Lab Results Vital Signs Most Recent Vital Signs in EMR: Most Recent Vital Signs Temp Pulse Resp BP Pulse Ox 36.3 C L 72 18 135/92 H 98 10/28/23 10:15 10/28/23 10:15 10/28/23 10:15 10/28/23 10:15 10/28/23 10:15 Lab Results Blood Type / Crossmatch: No Data to Display Complete Blood Count: No Data to Display Complete Metabolic Panel: No Data to Display Liver Function Panel: No Data to Display Coagulation Panel: No Data to Display Cardiac Panel: No Data to Display Arterial Blood Gas: No Data to Display Venous Blood Gas: No Data to Display Pancreas Panel: No Data to Display Thyroid Panel: No Data to Display Infectious Disease: No Data to Display Blood Cultures: No Data to Display Toxicology Panel: No Data to Display Anesthesia Assessment and Plan Anesthesia History Personal History: No History of Anesthesia Complications Family History: No Family History of Anesthesia Complications Exercise Tolerance Exercise Tolerance: Metabolic Equivalents>4 Pertinent Negatives Pertinent Negatives: No Symptoms of GERD (When on omeprazole), No Major Cardiovascular Symptoms or Complaints and No Major Pulmonary Symptoms or Complaints Cardiac & Pulmonary Exam Cardiac Exam: Normal S1/S2 Heart Sounds Pulmonary Exam: Clear Bilateral Breath Sounds Implantable Cardiac Device Does patient have a Pacemaker or an ICD?: No Airway Exam Known Difficult Airway: No Mallampati Class: 2 Mouth Opening: Normal (> 3cm) Thyromental Distance: Greater than 3 cm Neck Range of Motion: Full ROM Neck Circumference: Normal Teeth Condition: Normal Dentition ASA Classification ASA Score: ASA 3 Emergency Case?: No NPO Status NPO Status: NPO Clears >2 hours, Solids >8 hours Anesthesia Plan Resuscitation Status: Full Code Anesthesia Technique: General Anesthesia Airway Planned: Natural Airway Monitors Used: Standard Monitors
[2023-10-28 11:20] VITALS: BMI 29.7
[2023-10-28 11:52] VITALS: BP 103/62; PULSE 56; RESP 18; TEMP 35.9; O2SAT 98
--- NOTE | 2023-10-28 12:07 | W.ANESPOSTOP ---
Postoperative Evaluation Date, Time and Location Date Performed: 10/28/23 Time Performed: 12:07 Patient Location: Day Surgery Unit Vital Signs Most Recent Imported Vital Signs: Most Recent Vital Signs Temp Pulse Resp BP Pulse Ox 35.9 C L 56 L 18 103/62 98 10/28/23 11:52 10/28/23 11:52 10/28/23 11:52 10/28/23 11:52 10/28/23 11:52 Pain Score Most Recent Pain Score: Most Recent Pain Score Pain Level 0 10/28/23 10:15 Assessment Mental Status: Awake (Alert & Oriented to Patient Baseline) Airway and Respiratory Function: Patent airway with normal (patient baseline) respiratory exam Cardiovascular Function: Hemodynamically Stable Hydration Status: Adequately Hydrated Nausea & Vomiting: No Nausea or Vomiting Pain: Pt. Denies Any Pain Peripheral Nerve Block: Patient did not receive a nerve block
[2023-10-28] MEDS: Lactated Ringers 1,000 ML 80 ML IV (12:18)
[2023-10-28 12:29] VITALS: BP 142/81; PULSE 58; RESP 18; TEMP 36.5; O2SAT 97
--- NOTE | 2023-10-28 12:53 | W.ANESPOSTOP ---
Postoperative Evaluation Date, Time and Location Date Performed: 10/28/23 Time Performed: 12:16 Patient Location: Day Surgery Unit Vital Signs Most Recent Imported Vital Signs: Most Recent Vital Signs Temp Pulse Resp BP Pulse Ox 36.5 C 58 L 18 142/81 H 97 10/28/23 12:29 10/28/23 12:29 10/28/23 12:29 10/28/23 12:29 10/28/23 12:29 Most Recent Vital Signs Temp Pulse Resp BP Pulse Ox 35.9 C L 56 L 18 103/62 98 10/28/23 11:52 10/28/23 11:52 10/28/23 11:52 10/28/23 11:52 10/28/23 11:52 Pain Score Most Recent Pain Score: Most Recent Pain Score Pain Level 0 10/28/23 12:29 Assessment Mental Status: Awake (Alert & Oriented to Patient Baseline) Airway and Respiratory Function: Patent airway with normal (patient baseline) respiratory exam Cardiovascular Function: Hemodynamically Stable Hydration Status: Adequately Hydrated Nausea & Vomiting: No Nausea or Vomiting Pain: Pt. Denies Any Pain Peripheral Nerve Block: Patient did not receive a nerve block
--- NOTE | 2023-10-28 12:59 | W.PM.DSUDISC ---
Date of service: 10/28/23 Time of Service: 12:59 Discharge Plan Disposition Patient Disposition: Home Condition: Good Discharge Details Attending Provider: John Woodward Primary Care Provider: Melonie Hazel Home Meds and New Rx's Prescriptions: No Action clonidine HCl 0.1 mg tablet 0.1 mg PO BID Qty: 180 3RF donepezil 10 mg tablet 10 mg PO DAILY Qty: 90 ciclopirox 8 % solution 1 applic topical DAILY 90 Days Qty: 6.6 3RF clotrimazole-betamethasone 1-0.05 % cream 1 applic topical BID Qty: 45 4RF Ingrezza 80 mg capsule 80 mg PO DAILY tamsulosin [Flomax] 0.4 mg capsule 0.4 mg PO DAILY Rx Instructions: 07/12/21-pt reports now takes this BID [facility] [place] Urology 09/18/21- pt reports he self decreased dose to QD venlafaxine 150 mg tablet extended release 24hr 150 mg PO QAM Qty: 90 3RF Hold Instructions: Home Medication placed on hold at Doctor's office Rx Instructions: take with 75mg for total dose of 225mg a day lisdexamfetamine [Vyvanse] 20 mg capsule 20 mg PO QAM MDD 20mg/24h Qty: 28 0RF lisdexamfetamine [Vyvanse] 20 mg capsule 20 mg PO QAM MDD 20mg/24hr Qty: 28 0RF lisdexamfetamine [Vyvanse] 20 mg capsule 20 mg PO QAM MDD 20mg/24h Qty: 28 0RF cholecalciferol (vitamin D3) [Vitamin D3] 2,000 UNIT capsule 2,000 unit PO DAILY Qty: 90 acetaminophen 325 MG tablet 325 - 650 mg PO Q4H PRN Rx Instructions: 1-2 tabs amoxicillin 500 MG tablet 2 g PO ONCE Patient Comments: pt takes this pre dental appoitnment and states that the last time he took it was around 8 months ago Rx Instructions: prior to dental work. aspirin [Aspir-81] 81 MG tablet,delayed release (DR/EC) 81 mg PO DAILY omega-3 fatty acids 1,000 mg capsule 1,000 mg PO BID Patient Comments: per Dr. Catarina pimentel magnesium amino acid chelate 100 mg tablet 200 mg PO BID Rx Instructions: total 4 tabs daily. Catarina Granger MD Sleep clinic - 06/11/21 metoprolol succinate 50 mg tablet extended release 24 hr 50 mg PO DAILY Qty: 90 3RF amlodipine 5 mg tablet 5 mg PO DAILY Qty: 90 3RF atorvastatin 40 mg tablet 40 mg PO DAILY Qty: 90 3RF omeprazole 40 mg capsule,delayed release(DR/EC) 40 mg PO DAILY Qty: 90 3RF polyethylene glycol 3350 [Miralax] 17 gram/dose powder 17 g PO BID PRN (Reason: constipation) Qty: 510 0RF Rx Instructions: 1 tablespoon daily and increase as needed to comfort level; up to 17gm BID prn tacrolimus [Prograf] 0.5 mg capsule 0.5 mg PO BID Patient Comments: Dr Barcenas, [facility] [place] Rx Instructions: 0.5mg BID [facility] [place] Transplant note 05/07/23 bisacodyl [Dulcolax (bisacodyl)] 5 mg tablet,delayed release (DR/EC) 5 mg PO ONCE Qty: 4 0RF Rx Instructions: Take per colonoscopy instructions provided by ordering providers office polyethylene glycol 3350 17 gram/dose powder 17 g PO ONCE Qty: 238 0RF Rx Instructions: Take per colonoscopy instructions provided by ordering providers office Discharge Instructions Additional Instructions: FINDINGS: No polyps were found. No tumors. No inflammation. You have significant diverticular disease which is extremely common, benign and nothing needs to be done about it. This was seen on your last colonoscopy and is NOT a new finding. Stand Alone Forms: Colonoscopy Post Instructions, Nicole Salcido (LINA) Activity:: Activity as Tolerated Diet:: As Tolerated
== END 2023-10-28 13:00 | disposition home or self-care (01) ==
PROVIDERS: PCP Nurse Practitioner Adult Health; Visit Provider Student in an Organized Health Care Education/Training Program
PROC: 0DJD8ZZ Inspection of Lower Intestinal Tract, Via Natural or Artificial Opening Endoscopic (ICD-10-PCS; CPT 45378; principal; 2023-10-28 11:15)
DX: Z12.11 Encounter for screening for malignant neoplasm of colon (principal); K57.30 Diverticulosis of large intestine without perforation or abscess without bleeding; I10 Essential (primary) hypertension
CPT/HCPCS: G0105; 00123; J2001

== ENCOUNTER 2023-12-11 04:36 | Outpatient (CLI) | payer MEDICARE, SELFPAY ==
[2023-12-11 11:10] LABS: Abs Immature Grans 0.02 10^3/uL (0.0-0.06); Absolute Basophil Count 0.05 10^3/uL (0.0-0.2); Absolute Eosinophil Count 0.23 10^3/uL (0.0-0.7); Absolute Lymphocyte Count 1.36 10^3/uL (1.2-3.4); Absolute Monocyte Count 0.38 10^3/uL (0.1-0.8); Absolute Neutrophil Count 3.59 10^3/uL (1.2-6.7); Basophils % 0.9; Eosinophils % 4.1; HCT 43.4 % (40.0-50.0); HGB 15.1 g/dL (13.5-17.5); Immature Grans % 0.4; Lymphocytes % 24.2; MCHC 34.8 % (32.0-36.0); MCV 86 fL (80-95); MPV 8.7 fL (8.0-11.0); Monocytes % 6.7; Neutrophils % 63.7; Platelet Count 187 10^3/uL (130-400); RBC 5.03 10^6/uL (4.36-5.78); RDW 14.2 % (11.8-14.1); WBC 5.63 10^3/uL (4.4-10.8)
[2023-12-11 11:12] LABS: Bilirubin Negative (Negative); Blood Negative (Negative); Clarity Clear (Clear); Glucose Negative (Negative); Ketones Negative (Negative); Leukocyte Esterase Negative (Negative); Nitrite Negative (Negative)
[2023-12-11 11:30] LABS: COMMENT (LAB VIEW ONLY) 170.06 mg/dL; PROTEIN 26.8 mg/dL; Prot/Crea Ur Ratio 0.15
[2023-12-11 11:35] LABS: ALT 25 U/L (16-63); AST 18 U/L (15-37); Albumin 3.4 g/dL (3.4-5.0); Alkaline Phosphatase 102 U/L (46-116); Anion Gap 7.8 mmol/L (3-11); BUN 14 mg/dL (7-18); Bilirubin, Total 1.7 mg/dL (0.2-1.0); CO2 28.2 mmol/L (21.0-32.0); CREATININE 1.2 mg/dL (0.70-1.30); Calcium 9.2 mg/dL (8.5-10.1); Chloride 102 mmol/L (98-107); Estimated GFR 64.25 (mL/min/1.73m2); Glucose 120 mg/dL (74-106); PHOSPHORUS 3.3 mg/dL (2.6-4.7); Potassium 4.5 mmol/L (3.5-5.1); Sodium 138 mmol/L (136-145); Uric Acid 5.1 mg/dL (3.5-7.2)
[2023-12-11 11:44] LABS: Cholesterol 130 mg/dL (<200)
[2023-12-12 10:37] LABS: Tacrolimus 5.1 ng/mL (See Note)
== END 2023-12-11 04:37 | disposition home or self-care (01) ==
LOC: LBO 04:36
PROVIDERS: PCP Nurse Practitioner Adult Health; Visit Provider Internal Medicine Nephrology
DX: Z79.899 Other long term (current) drug therapy (principal); Z94.0 Kidney transplant status; Z94.83 Pancreas transplant status
CPT/HCPCS: 36415; 80053; 80197; 81003; 82465; 82565; 83735; 84100; 84156; 84550; 85025

== ENCOUNTER → 2023-12-17 13:12 | Outpatient (BNVA) | payer MEDICARE, SELFPAY | PROVIDERS: PCP Nurse Practitioner Adult Health; Referring Provider Nurse Practitioner Adult Health; Visit Provider Podiatrist | DX: B35.1 Tinea unguium (principal); M79.674 Pain in right toe(s); M79.675 Pain in left toe(s); Z79.899 Other long term (current) drug therapy; I70.203 Unspecified atherosclerosis of native arteries of extremities, bilateral legs; L97.522 Non-pressure chronic ulcer of other part of left foot with fat layer exposed; R09.89 Other specified symptoms and signs involving the circulatory and respiratory systems; Z94.0 Kidney transplant status | CPT/HCPCS: 11721 ==

== ENCOUNTER 2024-04-13 04:50 | Outpatient (CLI) | payer MEDICARE, SELFPAY ==
[2024-04-13 10:05] LABS: HCT 43.6 % (40.0-50.0); HGB 15.1 g/dL (13.5-17.5); MCH 30.4 pg (27.0-33.0); MCHC 34.6 % (32.0-36.0); MCV 88 fL (80-95); MPV 8.8 fL (8.0-11.0); Platelet Count 195 10^3/uL (130-400); RBC 4.96 10^6/uL (4.36-5.78); RDW 14.3 % (11.8-14.1); RDW-SD 45.6 fL; WBC 6.28 10^3/uL (4.4-10.8)
[2024-04-13 10:16] LABS: Bilirubin Negative (Negative); Blood Negative (Negative); Clarity Clear (Clear); Glucose Negative (Negative); Ketones Negative (Negative); Leukocyte Esterase Negative (Negative); Nitrite Negative (Negative)
[2024-04-13 10:49] LABS: Vitamin D 25 Total 32.1 ng/mL (30-100)
[2024-04-13 10:55] LABS: ALT 26 U/L (16-63); AST 18 U/L (15-37); Albumin 3.4 g/dL (3.4-5.0); Alkaline Phosphatase 92 U/L (46-116); BUN 16 mg/dL (7-18); Bilirubin, Total 1.4 mg/dL (0.2-1.0); CREATININE 1.1 mg/dL (0.70-1.30); Calcium 8.7 mg/dL (8.5-10.1); Calculated LDL 65 mg/dL (<100); Chloride 105 mmol/L (98-107); Cholesterol 120 mg/dL (<200); Estimated GFR 71.32 (mL/min/1.73m2); Glucose 125 mg/dL (74-106); HDL Cholesterol 36 mg/dL (40-60); Magnesium 1.9 mg/dL (1.8-2.4); Potassium 4.4 mmol/L (3.5-5.1); Sodium 141 mmol/L (136-145); Total Protein 6.9 g/dL (6.4-8.2); Triglyceride 95 mg/dL (<150)
[2024-04-13 11:00] LABS: COMMENT (LAB VIEW ONLY) 144.93 mg/dL; Prot/Crea Ur Ratio 0.12
[2024-04-13 11:02] LABS: Hemoglobin A1C 5.2 % (<5.7)
[2024-04-13 11:06] LABS: PHOSPHORUS 2.8 mg/dL (2.6-4.7); Uric Acid 5.3 mg/dL (3.5-7.2)
[2024-04-13 19:12] LABS: Parathyroid Hormone,Intact 97 pg/mL (19-88)
[2024-04-14 08:51] LABS: Calcium (Random Urine) 12.1 mg/dL (See Note); Magnesium Random Urine 11.1 mg/dL (See Note)
[2024-04-14 13:20] LABS: Tacrolimus 4.6 ng/mL (See Note)
[2024-04-15 13:57] LABS: BKV DNA Detect/Quant, P Undetected IU/mL (Undetected)
[2024-04-16 16:06] LABS: 1,25-Dihydroxyvitamin D 34 pg/mL (18-64)
== END 2024-04-13 04:51 | disposition home or self-care (01) ==
PROVIDERS: PCP Nurse Practitioner Adult Health; Visit Provider Nurse Practitioner Family
DX: Z94.0 Kidney transplant status (principal); Z79.899 Other long term (current) drug therapy; E55.9 Vitamin D deficiency, unspecified
CPT/HCPCS: 36415; 80053; 80061; 82306; 83735; 85027; 80197; 81003; 82340; 82565; 82652; 83036; 83970; 84100; 84105; 84156; 84550; 85045; 87799

== ENCOUNTER → 2024-04-14 13:09 | Outpatient (BNVA) | payer MEDICARE, SELFPAY | PROVIDERS: PCP Nurse Practitioner Adult Health; Referring Provider Nurse Practitioner Adult Health; Visit Provider Podiatrist | DX: B35.1 Tinea unguium (principal); M79.674 Pain in right toe(s); M79.675 Pain in left toe(s); Z79.899 Other long term (current) drug therapy; I70.203 Unspecified atherosclerosis of native arteries of extremities, bilateral legs; L97.522 Non-pressure chronic ulcer of other part of left foot with fat layer exposed; L60.3 Nail dystrophy; L03.032 Cellulitis of left toe | CPT/HCPCS: 11721 ==

== ENCOUNTER 2024-04-14 15:45 | Outpatient (REF) | payer MEDICARE, SELFPAY | END 2024-04-14 15:46 | disposition home or self-care (01) | LOC: LBN 15:45 | PROVIDERS: PCP Nurse Practitioner Adult Health; Visit Provider Podiatrist | DX: L60.0 Ingrowing nail (principal); B95.7 Other staphylococcus as the cause of diseases classified elsewhere | CPT/HCPCS: 87077; 87070; 87075; 87186; 87205 ==

== ENCOUNTER → 2024-04-29 09:58 | Outpatient (BNVA) | payer MEDICARE, SELFPAY | PROVIDERS: PCP Nurse Practitioner Adult Health; Referring Provider Nurse Practitioner Adult Health; Visit Provider Podiatrist | DX: B35.1 Tinea unguium; M79.674 Pain in right toe(s); M79.675 Pain in left toe(s); Z79.899 Other long term (current) drug therapy; I70.203 Unspecified atherosclerosis of native arteries of extremities, bilateral legs; L97.522 Non-pressure chronic ulcer of other part of left foot with fat layer exposed; L02.612 Cutaneous abscess of left foot; L60.3 Nail dystrophy; L03.032 Cellulitis of left toe | CPT/HCPCS: 99213 ==

== ENCOUNTER → 2024-06-14 12:51 | Outpatient (BNVA) | payer MEDICARE, SELFPAY | PROVIDERS: PCP Nurse Practitioner Adult Health; Visit Provider Internal Medicine Cardiovascular Disease | DX: I25.810 Atherosclerosis of coronary artery bypass graft(s) without angina pectoris (principal); I10 Essential (primary) hypertension | CPT/HCPCS: 99213 ==

== ENCOUNTER 2024-07-29 03:03 | Outpatient (CLI) | payer MEDICARE, SELFPAY ==
[2024-07-29 09:42] LABS: Abs Immature Grans 0.03 10^3/uL (0.0-0.06); Absolute Basophil Count 0.04 10^3/uL (0.0-0.2); Absolute Eosinophil Count 0.16 10^3/uL (0.0-0.7); Absolute Lymphocyte Count 1.41 10^3/uL (1.2-3.4); Absolute Monocyte Count 0.42 10^3/uL (0.1-0.8); Absolute Neutrophil Count 4.61 10^3/uL (1.2-6.7); Basophils % 0.6 %; Eosinophils % 2.4 %; HCT 47.5 % (40.0-50.0); HGB 16.3 g/dL (13.5-17.5); Immature Grans % 0.4 %; Lymphocytes % 21.1 %; MCH 30.4 pg (27.0-33.0); MCHC 34.3 % (32.0-36.0); MCV 89 fL (80-95); MPV 8.7 fL (8.0-11.0); Monocytes % 6.3 %; Neutrophils % 69.2 %; Platelet Count 188 10^3/uL (130-400); RBC 5.37 10^6/uL (4.36-5.78); RDW 14.1 % (11.8-14.1); WBC 6.67 10^3/uL (4.4-10.8)
[2024-07-29 09:51] LABS: Bilirubin Negative (Negative); Blood Negative (Negative); Clarity Clear (Clear); Glucose Negative (Negative); Ketones Negative (Negative); Leukocyte Esterase Negative (Negative); Nitrite Negative (Negative); pH 6.5 (5-8)
[2024-07-29 10:18] LABS: COMMENT (LAB VIEW ONLY) 79.35 mg/dL
[2024-07-29 10:23] LABS: ALT 23 U/L (16-63); AST 16 U/L (15-37); Albumin 3.5 g/dL (3.4-5.0); Alkaline Phosphatase 108 U/L (46-116); Anion Gap 12.4 mmol/L (3-11); BUN 14 mg/dL (7-18); Bilirubin, Total 1.36 mg/dL (0.2-1.0); CO2 23.6 mmol/L (21.0-32.0); CREATININE 1.1 mg/dL (0.70-1.30); Calcium 8.8 mg/dL (8.5-10.1); Chloride 104 mmol/L (98-107); Estimated GFR 71.32 (mL/min/1.73m2); Glucose 132 mg/dL (74-106); Magnesium 1.8 mg/dL (1.8-2.4); Potassium 3.9 mmol/L (3.5-5.1); Sodium 140 mmol/L (136-145); Total Protein 7.1 g/dL (6.4-8.2)
[2024-07-29 10:27] LABS: Cholesterol 123 mg/dL (<200)
[2024-07-29 10:37] LABS: PHOSPHORUS 3.4 mg/dL (2.6-4.7); Uric Acid 4.2 mg/dL (3.5-7.2)
[2024-07-29 12:01] LABS: PROTEIN 8.1 mg/dL
[2024-07-30 14:37] LABS: Tacrolimus 4.8 ng/mL (See Note)
== END 2024-07-29 03:04 | disposition home or self-care (01) ==
PROVIDERS: PCP Nurse Practitioner Adult Health; Visit Provider Internal Medicine Nephrology
DX: Z94.0 Kidney transplant status (principal); Z79.899 Other long term (current) drug therapy
CPT/HCPCS: 36415; 80053; 80197; 81003; 82465; 82565; 83735; 84100; 84156; 84550; 85025

== ENCOUNTER → 2024-08-11 13:30 | Outpatient (BNVA) | payer MEDICARE, SELFPAY | PROVIDERS: PCP Nurse Practitioner Adult Health; Referring Provider Nurse Practitioner Adult Health; Visit Provider Nurse Practitioner Family | DX: Z94.0 Kidney transplant status (principal); I73.89 Other specified peripheral vascular diseases; L60.3 Nail dystrophy; B35.1 Tinea unguium; R09.89 Other specified symptoms and signs involving the circulatory and respiratory systems; L53.8 Other specified erythematous conditions; R20.8 Other disturbances of skin sensation; R60.0 Localized edema | CPT/HCPCS: 11721 ==

== ENCOUNTER → 2024-12-15 13:58 | Outpatient (BNVA) | payer MEDICARE, SELFPAY | PROVIDERS: PCP Nurse Practitioner Adult Health; Referring Provider Nurse Practitioner Adult Health; Visit Provider Podiatrist | DX: L60.3 Nail dystrophy (principal); B35.1 Tinea unguium; M79.674 Pain in right toe(s); M79.675 Pain in left toe(s); Z79.899 Other long term (current) drug therapy; I70.203 Unspecified atherosclerosis of native arteries of extremities, bilateral legs; L03.031 Cellulitis of right toe; L03.032 Cellulitis of left toe; R09.89 Other specified symptoms and signs involving the circulatory and respiratory systems; R20.8 Other disturbances of skin sensation; R60.0 Localized edema; L65.9 Nonscarring hair loss, unspecified; L60.2 Onychogryphosis; L53.8 Other specified erythematous conditions | CPT/HCPCS: 11721 ==

== ENCOUNTER → 2024-12-28 14:25 | Outpatient (BNVA) | payer MEDICARE, SELFPAY | PROVIDERS: PCP Nurse Practitioner Adult Health; Referring Provider Nurse Practitioner Adult Health; Visit Provider Podiatrist | DX: B35.1 Tinea unguium (principal); M79.674 Pain in right toe(s); M79.675 Pain in left toe(s); Z79.899 Other long term (current) drug therapy; I70.203 Unspecified atherosclerosis of native arteries of extremities, bilateral legs; L60.3 Nail dystrophy; L03.031 Cellulitis of right toe; L03.032 Cellulitis of left toe; L02.611 Cutaneous abscess of right foot; L02.612 Cutaneous abscess of left foot | CPT/HCPCS: 99214 ==

== ENCOUNTER → 2025-01-19 14:14 | Outpatient (BNVA) | payer MEDICARE, SELFPAY | PROVIDERS: PCP Nurse Practitioner Adult Health; Referring Provider Nurse Practitioner Adult Health; Visit Provider Podiatrist | DX: B35.1 Tinea unguium (principal); M79.674 Pain in right toe(s); M79.675 Pain in left toe(s); Z79.899 Other long term (current) drug therapy; I70.203 Unspecified atherosclerosis of native arteries of extremities, bilateral legs; L60.3 Nail dystrophy; L03.031 Cellulitis of right toe; L03.032 Cellulitis of left toe; L02.611 Cutaneous abscess of right foot | CPT/HCPCS: 99213 ==

== ENCOUNTER 2025-02-15 00:33 | Outpatient (CLI) | payer MEDICARE, SELFPAY ==
--- NOTE | 2025-02-15 06:15 | DI.US_ITS ---
Exam(s) US ABDOMEN EXAM: US ABDOMEN CLINICAL HISTORY: mid abd pain,epigastric pain,r10.13 TECHNIQUE: Ultrasound abdomen performed using standard protocol. COMPARISON: CT ABD PELVIS WO CONTRAST from 06/11/[address] CHEST PE CTA from 12/18/2020 FINDINGS: LIVER: Normal size and echogenicity. Innumerable liver cysts are noted. Largest cyst is in the righ t lobe measuring 6 cm. GALLBLADDER: No evidence of cholelithiasis. No evidence of wall thickening. No pericholecystic fluid identified. NGUYEN'S SIGN: Negative. BILIARY SYSTEM: No intrahepatic or extrahepatic biliary ductal dilation. KIDNEYS: Bilateral nephrectomy. Left lower quadrant renal transplant. No evidence of hydronephrosis or perinephric collection. PANCREAS: Normal where visualized. SPLEEN: Not enlarged. ABDOMINAL AORTA AND IVC: Visualized portions normal caliber. ASCITES: None seen. IMPRESSION: Multiple liver cysts. The gallbladder is unremarkable. Left lower quadrant renal transplant appears normal. DATA REPOSITORY:
== END 2025-02-15 00:53 ==
LOC: DI 00:34
PROVIDERS: PCP Nurse Practitioner Adult Health; Visit Provider Emergency Medicine
DX: R10.13 Epigastric pain (principal)
CPT/HCPCS: 76700

== ENCOUNTER 2025-03-08 00:33 | Outpatient (CLI) | payer MEDICARE, SELFPAY ==
[2025-03-08 10:27] LABS: HCT 40.1 % (40.0-50.0); HGB 13.6 g/dL (13.5-17.5); MCH 28.2 pg (27.0-33.0); MCHC 33.9 % (32.0-36.0); MCV 83 fL (80-95); MPV 8.6 fL (8.0-11.0); Platelet Count 301 10^3/uL (130-400); RBC 4.82 10^6/uL (4.36-5.78); RDW 14.6 % (11.8-14.1); RDW-SD 44.2 fL; WBC 7.18 10^3/uL (4.4-10.8)
[2025-03-08 11:32] LABS: Amylase 38 U/L (25-115)
[2025-03-08 11:35] LABS: ALT 41 U/L (16-63); AST 26 U/L (15-37); Albumin 2.5 g/dL (3.4-5.0); Alkaline Phosphatase 143 U/L (46-116); Anion Gap 11.4 mmol/L (3-11); BUN 11 mg/dL (7-18); Bilirubin, Total 1.7 mg/dL (0.2-1.0); C-Reactive Protein 9.51 mg/dL (<or=0.5); CO2 23.6 mmol/L (21.0-32.0); Calcium 9.3 mg/dL (8.5-10.1); Chloride 102 mmol/L (98-107); Estimated GFR 79.47 (mL/min/1.73m2); Glucose 147 mg/dL (74-106); Lipase 25 U/L (<78); Potassium 4.3 mmol/L (3.5-5.1); Sodium 137 mmol/L (136-145); TSH 2.06 uIU/mL (0.36-3.74)
== END 2025-03-08 00:34 | disposition home or self-care (01) ==
LOC: LBO 00:34
PROVIDERS: PCP Nurse Practitioner Adult Health; Visit Provider Emergency Medicine
DX: R10.9 Unspecified abdominal pain (principal); E03.9 Hypothyroidism, unspecified
CPT/HCPCS: 80053; 83690; 85027; 82150; 84443; 86140

== ENCOUNTER 2025-03-20 20:04 | Emergency (ER) | payer MEDICARE, SELFPAY ==
--- NOTE | 2025-03-20 20:00 | RT.EKG_ITS ---
APPROVED REPORT Exam: Resting ECG Reason for Exam: chest pain Patient Location: E HR:95 bpm ECG Measurements Heart Rate 95 AXIS NV 157 P 70 QRSd 94 QRS 77 QT 342 T -17 QTc 430 Conclusion Sinus rhythm, rate 95 No interval abnormalities No STEMI T wave flattening III, aVF new from priors
[2025-03-20 20:13] VITALS: BP 168/87; PULSE 99; RESP 20; TEMP 36.6; O2SAT 96
--- NOTE | 2025-03-20 20:15 | DI.RAD_ITS ---
Exam(s) XR CHEST 2V PA LATERAL EXAM: XR CHEST 2V PA LATERAL CLINICAL HISTORY: Chest pain TECHNIQUE: 2D digital imaging was performed of the chest. Two images were obtained. PA and lateral views were obtained. COMPARISON: CR XR CHEST 2V PA LATERAL from 12/19/2020 FINDINGS: MEDIASTINUM: Normal. HEART: Normal. Status post CABG. PULMONARY VASCULATURE: Normal. LUNGS: Clear. PLEURAL SPACE: No pleural effusion or pneumothorax. BONE:Within normal limits for the patient's age. OTHER FINDINGS:Normal. IMPRESSION: 1. No acute pulmonary findings. 2. The preliminary [facility] report was reviewed. DATA REPOSITORY: RADIATION DOSE DELIVERED:
[2025-03-20] MEDS: Aspirin 81 MG CHEW 324 MG CH (20:34)
[2025-03-20 20:36] LABS: Abs Immature Grans 0.03 10^3/uL (0.0-0.06); Absolute Basophil Count 0.03 10^3/uL (0.0-0.2); Absolute Eosinophil Count 0.13 10^3/uL (0.0-0.7); Absolute Lymphocyte Count 1.07 10^3/uL (1.2-3.4); Absolute Monocyte Count 0.44 10^3/uL (0.1-0.8); Absolute Neutrophil Count 4.87 10^3/uL (1.2-6.7); Basophils % 0.5 %; HCT 43.2 % (40.0-50.0); HGB 14.2 g/dL (13.5-17.5); Immature Grans % 0.5 %; Lymphocytes % 16.3 %; MCH 27.8 pg (27.0-33.0); MCHC 32.9 % (32.0-36.0); MCV 85 fL (80-95); MPV 8.3 fL (8.0-11.0); Monocytes % 6.7 %; Platelet Count 274 10^3/uL (130-400); RDW 15.4 % (11.8-14.1); RDW-SD 46.8 fL; WBC 6.57 10^3/uL (4.4-10.8)
[2025-03-20 20:58] LABS: ALT 40 U/L (16-63); AST 71 U/L (15-37); Albumin 3.3 g/dL (3.4-5.0); Alkaline Phosphatase 286 U/L (46-116); Anion Gap 7.5 mmol/L (3-11); BUN 11 mg/dL (7-18); Bilirubin, Total 1.6 mg/dL (0.2-1.0); CO2 26.5 mmol/L (21.0-32.0); CREATININE 1.1 mg/dL (0.70-1.30); Calcium 9.3 mg/dL (8.5-10.1); Chloride 103 mmol/L (98-107); Estimated GFR 70.88 (mL/min/1.73m2); Glucose 143 mg/dL (74-106); Lipase 44 U/L (<78); Magnesium 1.9 mg/dL (1.8-2.4); NT-proBNP 224 pg/mL (<300); Potassium 3.8 mmol/L (3.5-5.1); Sodium 137 mmol/L (136-145); Total Protein 7.6 g/dL (6.4-8.2); Troponin I 6 ng/L (<or=76)
--- NOTE | 2025-03-20 21:17 | ED.GENADUL_ITS ---
Discharge Plan Disposition Patient Disposition: Home Condition: Stable Discharge Details Clinical Impression: Chest pain of unknown etiology Primary Care Provider: Melonie Hazel ED Provider: Lorelei Rivera Home Meds and New Rx's Prescriptions: No Action clonidine HCl 0.1 mg tablet 0.1 mg PO BID Qty: 180 3RF donepezil 10 mg tablet 10 mg PO DAILY Qty: 90 hydralazine 50 mg tablet 50 mg PO TID Patient Comments: 06/14/24 per renal for BP RH metoprolol succinate 50 mg tablet extended release 24 hr 75 mg PO DAILY amlodipine 5 mg tablet 10 mg PO DAILY Ingrezza 80 mg capsule 80 mg PO DAILY tamsulosin [Flomax] 0.4 mg capsule 0.4 mg PO DAILY Rx Instructions: 07/12/21-pt reports now takes this BID [facility] [place]18[place]- pt reports he self decreased dose to QD cholecalciferol (vitamin D3) [Vitamin D3] 2,000 UNIT capsule 2,000 unit PO DAILY Qty: 90 acetaminophen 325 MG tablet 325 - 650 mg PO Q4H PRN Rx Instructions: 1-2 tabs amoxicillin 500 MG tablet 2 g PO ONCE Patient Comments: pt takes this pre dental appoitnment and states that the last time he took it was around 8 months ago Rx Instructions: prior to dental work. aspirin [Aspir-81] 81 MG tablet,delayed release (/EC) 81 mg PO DAILY omega-3 fatty acids 1,000 mg capsule 1,000 mg PO BID Patient Comments: per Dr. Elmore sleep magnesium amino acid chelate 100 mg tablet 200 mg PO BID Rx Instructions: total 4 tabs daily. Catarina Granger MD Sleep clinic - 06/11/21 polyethylene glycol 3350 [Miralax] 17 gram/dose powder 17 g PO BID PRN (Reason: constipation) Qty: 510 0RF Rx Instructions: 1 tablespoon daily and increase as needed to comfort level; up to 17gm BID prn tacrolimus [Prograf] 0.5 mg capsule 0.5 mg PO BID Patient Comments: [place] Barcenas, [facility] [place]: 0.5mg BID [facility] [place] 05/07/23 polyethylene glycol 3350 17 gram/dose powder 17 g PO ONCE Qty: 238 0RF Rx Instructions: Take per colonoscopy instructions provided by ordering providers office omeprazole 40 mg capsule,delayed release(/EC) See Rx Instructions .ROUTE .COMPLEX Qty: 90 3RF Dose Instruction: TAKE ONE CAPSULE BY MOUTH EVERY DAY Rx Instructions: TAKE ONE CAPSULE BY MOUTH EVERY DAY ketoconazole 2 % cream 1 applic topical DAILY Qty: 30 4RF Rx Instructions: Apply 1gram to toenails daily, until fungal nails are resolved. Apply at a separate time of day from any other creams or lotions. atorvastatin 40 mg tablet See Rx Instructions .ROUTE .COMPLEX Qty: 90 3RF Dose Instruction: TAKE ONE TABLET BY MOUTH EVERY DAY Rx Instructions: TAKE ONE TABLET BY MOUTH EVERY DAY venlafaxine 150 mg tablet extended release 24hr See Rx Instructions .ROUTE .COMPLEX Qty: 90 2RF Dose Instruction: TAKE ONE TABLET BY MOUTH EVERY MORNING , TAKE WITH 75 MG TABLET FOR TOTAL DOSE OF 225MG A DAY Rx Instructions: TAKE ONE TABLET BY MOUTH EVERY MORNING , TAKE WITH 75 MG TABLET FOR TOTAL DOSE OF 225MG A DAY Discharge Instructions Instructions: Chest Pain, Adult ED Additional Instructions: You were seen in the emergency department today for evaluation of chest pain that resolved prior to arrival. In our department you had a full physical examination performed, had a reassuring EKG and cardiac enzymes that were negative. The remainder of your laboratory studies were reassuring and without change from your normal. Unfortunately, we are sometimes unable to determine the exact cause of your symptoms here in the emergency department, and I do recommend that you call your invoice control clerk as they may wish to schedule a repeat stress test, echocardiography, or other tests to determine the cause of your symptoms. If your chest pain returns, you develop shortness of breath, change in responsiveness, or any other symptoms, you should return to the emergency department for reevaluation. Thank you for allowing us to be part of your care. HPI General Mode of arrival: ambulatory . Date/Time Provider Initiated Documentation: 03/20/25 20:27 . Limitations to Documentation: no limitations . Information obtained by: patient, family and old records reviewed . HPI Narrative: This is a 74-year-old male patient with a past medical history significant for coronary artery disease status post quadruple bypass in 2018, a history of kidney transplant due to polycystic kidney syndrome, history of hypertension, ANA ROSA, who is presenting for evaluation of chest pain. The patient reports that he had a sudden onset of chest pain while eating dinner, states that he did have an episode of vomiting, and states that on his way to the hospital his chest pain resolved. He states that he estimates he had approximately 45 minutes worth of pain, which stretches across his lower chest. He states that it is nonradiating, is not associated with shortness of breath, and states that he was not able to reproduce it with movement or position. He states that he did not take any medications prior to arrival, but does take a baby aspirin. He states that he is not on anticoagulation, and has not had any changes in his immunosuppressants. The patient reports that prior to this event he was in his normal state of health. Related Data Home Medications ?Medication ?Instructions ?Recorded ?Confirmed cholecalciferol (vitamin D3) 50 2,000 unit PO DAILY ##90 01/20/13 03/20/25 mcg (2,000 unit) capsule (Vitamin D3) acetaminophen 325 mg tablet 325 - 650 mg PO Q4H PRN 05/06/13 03/20/25 amoxicillin 500 mg tablet 2 g PO ONCE 10/17/14 03/20/25 aspirin 81 mg tablet,delayed 81 mg PO DAILY 04/05/16 03/20/25 release (Aspir-) omega-3 fatty acids 1,000 mg 1,000 mg PO BID 02/08/19 03/20/25 capsule clonidine HCl 0.1 mg tablet 0.1 mg PO BID #180 tabs 06/27/20 03/20/25 magnesium amino acid chelate 100 200 mg PO BID 06/12/21 03/20/25 mg tablet valbenazine 80 mg capsule 80 mg PO DAILY grinding teeth 07/04/21 03/20/25 (Ingrezza) tamsulosin 0.4 mg capsule (Flomax) 0.4 mg PO DAILY 09/19/21 03/20/25 polyethylene glycol 3350 17 17 g PO BID PRN constipation #510 01/22/23 03/20/25 gram/dose oral powder (Miralax) grams donepezil 10 mg tablet 10 mg PO DAILY #90 tabs 04/21/23 03/20/25 tacrolimus 0.5 mg capsule, 0.5 mg PO BID 05/14/23 03/20/25 immediate-release (Prograf) polyethylene glycol 3350 17 17 g PO ONCE #238 grams 10/23/23 03/20/25 gram/dose oral powder omeprazole 40 mg capsule,delayed See Rx Instructions .Route 03/31/24 03/20/25 release .COMPLEX #90 caps hydralazine 50 mg tablet 50 mg PO TID 06/14/24 03/20/25 ketoconazole 2 % topical cream 1 applic topical DAILY 06/16/24 03/20/25 onychomycosis #30 grams amlodipine 5 mg tablet 10 mg PO DAILY 07/01/24 03/20/25 metoprolol succinate 50 mg 75 mg PO DAILY 07/01/24 03/20/25 tablet,extended release 24 hr atorvastatin 40 mg tablet See Rx Instructions .Route 01/11/25 03/20/25 .COMPLEX #90 tabs venlafaxine 150 mg tablet,extended See Rx Instructions .Route 01/11/25 03/20/25 release 24 hr .COMPLEX #90 tabs Previous Rx's ?Medication ?Instructions ?Recorded clonidine HCl 0.1 mg tablet 0.1 mg PO BID #180 tabs 06/27/20 polyethylene glycol 3350 17 17 g PO BID PRN constipation #510 01/22/23 gram/dose oral powder (Miralax) grams polyethylene glycol 3350 17 17 g PO ONCE #238 grams 10/23/23 gram/dose oral powder omeprazole 40 mg capsule,delayed See Rx Instructions .Route 03/31/24 release .COMPLEX #90 caps ketoconazole 2 % topical cream 1 applic topical DAILY 06/16/24 onychomycosis #30 grams atorvastatin 40 mg tablet See Rx Instructions .Route 01/11/25 .COMPLEX #90 tabs venlafaxine 150 mg tablet,extended See Rx Instructions .Route 01/11/25 release 24 hr .COMPLEX #90 tabs Allergies Allergy/AdvReac Type Severity Reaction Status Date / Time aripiprazole AdvReac Severe tardive Verified 03/20/25 20:16 dyskinesia methylphenidate AdvReac Bruxism Verified 03/20/25 20:16 (stopped with this med discontinued) General Stated Complaint: Chest Pain YUE: 3 Exam Narrative Exam Narrative: Gen: awake and alert, in no apparent distress. Appears well nourished. HEENT: PERRL, EOMs full and without nystagmus. External ears and nose normal, mucous membranes moist. Neck: Supple, full range of motion, no observable masses Lungs: No increased work of breathing, lung sounds clear and equal bilaterally without wheezes, rhonchi, or rales. CV: Heart with regular rate and rhythm, no murmurs auscultated. Strong and symmetrical radial pulses. Abdomen: Soft, nondistended, non-tender to palpation. No rigidity, rebound tenderness, or guarding. MSK: No joint swelling, no redness. Full ROM without limitation, no external traumatic findings. No peripheral edema Skin: No rashes or lesions to visualized skin. Normal color, warm, and dry. Neuro: No facial asymmetry, no focal motor or sensory deficits noted, clear speech, ambulates with steady gait. Psych: Appropriate for situation. Course Vital Signs Vital signs: Vital Signs Temperature 36.6 C 03/20/25 20:13 Pulse 99 H 03/20/25 20:13 Respiratory Rate 20 03/20/25 20:13 Blood Pressure 168/87 H 03/20/25 20:13 Pulse Oximetry 96 03/20/25 20:13 Temperature 36.6 C 03/20/25 20:13 Pulse 99 H 03/20/25 20:13 Respiratory Rate 20 03/20/25 20:13 Blood Pressure 168/87 H 03/20/25 20:13 Blood Pressure Position Sitting 03/20/25 20:13 Pulse Oximetry 96 03/20/25 20:13 Oxygen Delivery Method Room Air 03/20/25 20:13 Oxygen Flow Rate 0 03/20/25 20:13 Lab/Test Results Lab/Test Results: Laboratory Tests Range/Units 03/20/25 20:28 WBC (4.4-10.8) 10^3/uL 6.57 RBC (4.36-5.78) 10^6/uL 5.10 Hgb (13.5-17.5) g/dL 14.2 Hct (40.0-50.0) % 43.2 MCV (80-95) fL 85 MCH (27.0-33.0) pg 27.8 MCHC (32.0-36.0) % 32.9 RDW (11.8-14.1) % 15.4 H Plt Count (130-400) 10^3/uL 274 MPV (8.0-11.0) fL 8.3 Immature Gran % % 0.5 Neutrophils % % 74.0 Lymphocytes % % 16.3 Monocytes % % 6.7 Eosinophils % % 2.0 Basophils % % 0.5 Nucleated RBC % (0.0-0.3) % 0.0 Absolute Neutrophils (1.2-6.7) 10^3/uL 4.87 Absolute Lymphocytes (1.2-3.4) 10^3/uL 1.07 L Absolute Monocytes (0.1-0.8) 10^3/uL 0.44 Absolute Eosinophils (0.0-0.7) 10^3/uL 0.13 Absolute Basophils (0.0-0.2) 10^3/uL 0.03 Sodium (136-145) mmol/L 137 Potassium (3.5-5.1) mmol/L 3.8 Chloride (98-107) mmol/L 103 Carbon Dioxide (21.0-32.0) mmol/L 26.5 Anion Gap (3-11) mmol/L 7.5 BUN (7-18) mg/dL 11 Creatinine (0.70-1.30) mg/dL 1.1 Est GFR (CKD-EPI 2020) (mL/min/1.73m2) 70.88 Glucose (74-106) mg/dL 143 H Calcium (8.5-10.1) mg/dL 9.3 Magnesium (1.8-2.4) mg/dL 1.9 Total Bilirubin (0.2-1.0) mg/dL 1.6 H AST (15-37) U/L 71 H ALT (16-63) U/L 40 Alkaline Phosphatase (46-116) U/L 286 H Troponin I (<or=76) ng/L 6 NT-Pro-B Natriuret Pep (<300) pg/mL 224 Total Protein (6.4-8.2) g/dL 7.6 Albumin (3.4-5.0) g/dL 3.3 L Lipase (<78) U/L 44 Medical Decision Making This is a 74-year-old male patient presenting for evaluation of chest pain which has since resolved. My differential includes but is not limited to ACS including STEMI, NSTEMI, unstable angina, certainly considered arrhythmia, pericarditis/myocarditis, aortic pathology. Considered pulmonary abnormalities including pneumonia, bronchitis, pleural effusion, pulmonary edema, reactive airway disease, pneumothorax. The patient is without tachycardia, hypoxia, or a pleuritic component to his pain to significantly increase my concern for pulmonary embolism. The chest pain preceded the vomiting, which is less suggestive of Boerhaave's, esophagitis, though I did consider peptic ulcer disease, pancreatitis. Considered musculoskeletal pathologies including costochondritis, chest wall pain. EKG was obtained, showing a normal sinus rhythm without evidence of ischemia, and we will obtain laboratory studies to include CBC, CMP, magnesium, troponin, BNP, and a chest x-ray. I provided the patient with a dose of aspirin. - I independently interpreted the laboratory studies, which show no significant leukocytosis, anemia, or thrombocytopenia. The chemistry panel is without evidence of electrolyte abnormality, kidney dysfunction. The patient does have a slight elevation in bilirubin to 1.6, which has been noted on prior laboratory studies. His AST is slightly up at 71, alk phos also elevated to 286, likely due to the patient's history of polycystic liver disease. In the absence of abdominal pain, I have a lower concern that this represents cholecystitis, hepatitis. BNP is low, initial troponin 6, and lipase is low. Delta troponin was 4, without interval increase. Chest x-ray without abnormalities. The patient reported during his time in the emergency department that he developed 2 out of 10 pain located in the upper abdomen/lower chest, for which we did trial a dose of nitroglycerin. The patient had no significant blood pressure change, but does states that his chest pain resolved entirely, and did not recur over the next period of observation, nor when he got up and ambulated about the emergency department. At this time, the patient does not have evidence of acute ischemia, nor ongoing anginal symptoms, and though he has a high risk history I do feel that he would be appropriate to follow-up with his outpatient invoice control clerk, as he has the ability to do so in a timely fashion. The patient understands return precautions, is chest pain-free, and understands to take all of his medications as prescribed. At this time, the patient has had a full medical evaluation and is safe for discharge to home. They are hemodynamically stable, ambulatory, and tolerating PO. They are understanding of the follow-up plan and return precautions. They left our facility without incident. Lorelei Rivera MD Quality:MOOH Health Related Social Needs: Health related social needs details N/A PFSH All Active Problems (Updated 03/20/25 @ 23:02 by Lorelei Rivera MD) Chest pain of unknown etiology (Acute) Osteopenia determined by x-ray (Chronic ~09/2024) [place]; [facility] [place] manages Nail dystrophy (Acute) Abscess of foot (Acute) Cellulitis (Acute) SCC (squamous cell carcinoma) (Acute ~2023) L upper nasal sidewall, ED&C, Dr Griffith Basal cell carcinoma (BCC) (Acute) 02/2024-[place] ED&C -Dr Griffith Long-term current use of stimulant (Acute ~2022) Ulcer of left foot with fat layer exposed (Acute) Screening for colorectal cancer (Acute) 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 Jackson [facility] [place] manages 10/04/24 f/u with Dr Jackson Impaired fasting glucose (Chronic) Elevated prostate specific antigen [PSA] (Chronic) 08/12/19 ov [facility] Yearly PSA [place] [facility] [place] 76. Lower urinary tract symptoms (LUTS) (Acute) 08/12/[address] Lin, [facility], referred to Dr Frye to discuss laser prostatectomy ADHD (attention deficit hyperactivity disorder), combined type (Chronic ~2018) Major depressive disorder, recurrent, moderate (Chronic) 04/23/22 Neurology Slow transit constipation (Chronic 03/12/17) Polycystic liver disease (Chronic 10/17/14) Lap fenestration of an hepatic cyst 10/03/14 ANA ROSA (obstructive sleep apnea) (Chronic 04/26/15) C-PAP Hyperlipidemia (Chronic 11/25/11) PCEq 15.7%; LDL baseline 175; lipids checked [place] [facility] [place]: FRS 22.6% 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 SARS-CoV-2 positive (~02/22/22) Actinic keratosis 01/14/22 [facility] [place] [place] History of malignant melanoma 01/14/22 [facility] [place] [place] History of squamous cell carcinoma per [facility] [place] from 07/10/21 06/11/22 6m Derm visit History of basal cell carcinoma Per [facility] [place] from 07/10/21 Bruxism (teeth grinding) Dyspnea on exertion Malignant melanoma of neck (04/15/17) Biospy positive for malignant melanoma of neck and back. Dr Griffith Low back pain with sciatica (11/25/11) Lumbago (11/25/11) Depressive disorder, not elsewhere classified (11/25/11) vs adjustment disorder Chronic cough Onychomycosis Insomnia Status post bilateral nephrectomies Polycystic kidney disease s/p b/l nephrectomies Surgical History History of surgery of liver Lap Marsupialization Liver Cyst [facility] 10/03/14 Status post bilateral hernia repair H/O kidney transplant LEFT 20O9 History of nephrectomy, left (~2008) 2008 History of nephrectomy, right (~2009) 2009 Colonoscopy - MAC (11/28/17) CABG X4 (02/16/18) Family History Mother No problems noted. Father , 11/12/10 Polycystic kidney disease Brother , CAUSE OF UNKNOWN 60'S No problems noted. Brother Polycystic kidney disease Melanoma Prostate cancer Other Breast cancer Diabetes Heart disease Hyperlipidemia Hypertension Social History Smoking/Tobacco Use Status: Never Smoking risk assessment performed?: Yes Alcohol Intake: former Details: use of alcohol >10 years ago Drug use: Never Substance use type: does not use Adopted: No Caregiver/Support person: No Foster care: No Household members: spouse Housing: house Number of Children: 2 number of grandchildren: 5 Communication Needs: Corrective Lenses Education Level: high school Do you need help understanding health information?: Often current occupation: retired Pets and animals: No Sexually active: No Do you think of yourself as: straight/heterosexual Current gender identity: male What is your relationship status?: How often do you talk on the phone with friends or family?: once per week How often do you get together with friends or relatives?: never How often do you attend christian or hindu services?: decline to answer Do you belong to any clubs or organized social groups?: no Panel score (0-1 are the most socially isolated patients): 1 What type of physical activity do you participate in: none Duration: decline to answer Frequency: decline to answer Shirley/Zoroastrian: Episcopalian Seatbelt use: always Helmet use: No (No reason) Drive intox or ride w/intox airport driver: No Water heater temp set <120 deg: Yes Working smoke detector in home: Yes Carbon monox detector in home: Yes Firearms in home: Yes Firearms unloaded and locked: Yes Do you feel safe at home: Yes Do you feel safe in your relationship?: Yes
[2025-03-20] MEDS: nitroGLYcerin 0.4 MG TAB SL (21:53)
--- NOTE | 2025-03-20 22:37 | DI.VRAD_ITS ---
PROCEDURE INFORMATION: Exam: XR Chest Exam date and time: 03/20/2025 8:40 PM Age: 74 years old Clinical indication: Other: Chest pain TECHNIQUE: Imaging protocol: Radiologic exam of the chest. Views: 2 views. COMPARISON: CR XR CHEST 2V PA LATERAL 12/19/2020 1:40 PM FINDINGS: Lungs: Unremarkable. No consolidation. Pleural spaces: Unremarkable. No pleural effusion. No pneumothorax. Heart/Mediastinum: Unremarkable. No cardiomegaly. Bones/joints: Unremarkable. IMPRESSION: No acute findings. Dictated and Authenticated by: Nikko Simmons MD. Orderin [facility]ordo Moseley MD
[2025-03-20 22:44] LABS: Troponin I 4 ng/L (<or=76)
== END 2025-03-20 23:08 | disposition home or self-care (01) ==
PROVIDERS: Emergency Provider Emergency Medicine; PCP Nurse Practitioner Adult Health
DX: R07.9 Chest pain, unspecified (principal); I10 Essential (primary) hypertension; Z86.79 Personal history of other diseases of the circulatory system
CPT/HCPCS: 99284 ×2; 36415; 80053; 83690; 93005; 71046; 83735; 83880; 84484; 85025; 93010

== ENCOUNTER → 2025-03-23 14:30 | Outpatient (BNVA) | payer MEDICARE, SELFPAY | PROVIDERS: PCP Nurse Practitioner Adult Health; Referring Provider Nurse Practitioner Adult Health; Visit Provider Podiatrist | DX: L60.3 Nail dystrophy (principal); M79.674 Pain in right toe(s); M79.675 Pain in left toe(s); B35.1 Tinea unguium; Z79.899 Other long term (current) drug therapy; I70.203 Unspecified atherosclerosis of native arteries of extremities, bilateral legs; R09.89 Other specified symptoms and signs involving the circulatory and respiratory systems; R20.8 Other disturbances of skin sensation; R60.0 Localized edema; L65.9 Nonscarring hair loss, unspecified; L60.2 Onychogryphosis; L60.8 Other nail disorders | CPT/HCPCS: 11721 ==

== ENCOUNTER 2025-03-23 14:31 | Outpatient (REF) | payer MEDICARE, SELFPAY ==
[2025-03-25 10:07] LABS: Lyme Ab w Rflx to Lyme Confirm Negative (Negative)
[2025-03-27 15:39] LABS: Anaplasma phagocytophilum Negative (Negative); B. miyamotoi PCR Negative (Negative); Babesia divergens/MO-1 Negative (Negative); Babesia duncani Negative (Negative); Babesia microti Negative (Negative); Ehrlichia chaffeensis Negative (Negative); Ehrlichia ewingii/canis Negative (Negative); Ehrlichia muris eauclairensis Negative (Negative)
== END 2025-03-23 14:32 | disposition home or self-care (01) ==
LOC: LBN 14:31
PROVIDERS: PCP Nurse Practitioner Adult Health; Visit Provider Nurse Practitioner Adult Health
DX: R11.2 Nausea with vomiting, unspecified (principal); R10.13 Epigastric pain
CPT/HCPCS: 87798; 86618

== ENCOUNTER 2025-03-29 02:45 | Outpatient (CLI) | payer MEDICARE, SELFPAY ==
[2025-03-29 11:32] LABS: Abs Immature Grans 0.02 10^3/uL (0.0-0.06); Absolute Basophil Count 0.03 10^3/uL (0.0-0.2); Absolute Eosinophil Count 0.04 10^3/uL (0.0-0.7); Absolute Lymphocyte Count 0.86 10^3/uL (1.2-3.4); Absolute Neutrophil Count 4.15 10^3/uL (1.2-6.7); Basophils % 0.5 %; Eosinophils % 0.7 %; HCT 38.6 % (40.0-50.0); HGB 12.7 g/dL (13.5-17.5); Immature Grans % 0.4 %; Lymphocytes % 15.6 %; MCH 27.5 pg (27.0-33.0); MCHC 32.9 % (32.0-36.0); MCV 84 fL (80-95); MPV 8.8 fL (8.0-11.0); Monocytes % 7.3 %; Neutrophils % 75.5 %; Platelet Count 299 10^3/uL (130-400); RBC 4.62 10^6/uL (4.36-5.78); RDW-SD 45.5 fL
[2025-03-29 11:34] LABS: Reticulocyte 2.2 % (0.5-2.4)
[2025-03-29 12:16] LABS: ALT 44 U/L (16-63); AST 30 U/L (15-37); Albumin 2.6 g/dL (3.4-5.0); Alkaline Phosphatase 203 U/L (46-116); Anion Gap 11.6 mmol/L (3-11); BUN 8 mg/dL (7-18); Bilirubin, Total 1.6 mg/dL (0.2-1.0); CO2 25.4 mmol/L (21.0-32.0); Calcium 9.5 mg/dL (8.5-10.1); Chloride 103 mmol/L (98-107); Estimated GFR 79.47 (mL/min/1.73m2); Glucose 133 mg/dL (74-106); Magnesium 1.8 mg/dL (1.8-2.4); PHOSPHORUS 3.6 mg/dL (2.6-4.7); Sodium 140 mmol/L (136-145); Total Protein 7.2 g/dL (6.4-8.2); Uric Acid 3.6 mg/dL (3.5-7.2)
[2025-03-29 12:28] LABS: Calculated LDL 75 mg/dL (<100); Cholesterol 117 mg/dL (<200); HDL Cholesterol 23 mg/dL (>or=40); Triglyceride 99 mg/dL (<150)
[2025-03-29 16:32] LABS: Vitamin D 25 Total 39 ng/mL (30-100)
[2025-03-29 19:21] LABS: Parathyroid Hormone,Intact 50 pg/mL (19-88)
[2025-03-30 13:14] LABS: Tacrolimus 6.3 ng/mL (See Note)
[2025-03-31 18:25] LABS: BKV DNA Detect/Quant, P Undetected IU/mL (Undetected)
[2025-04-21 07:18] LABS: 1,25-Dihydroxyvitamin D 43 pg/mL
== END 2025-03-29 02:46 | disposition home or self-care (01) ==
LOC: LBO 02:45
PROVIDERS: Nurse Practitioner Family; PCP Nurse Practitioner Adult Health; Visit Provider Internal Medicine Nephrology
DX: E55.9 Vitamin D deficiency, unspecified (principal); Z94.0 Kidney transplant status; Z79.60 Long term (current) use of unspecified immunomodulators and immunosuppressants; T86.19 Other complication of kidney transplant
CPT/HCPCS: 36415; 80053; 80061; 82306; 83735; 80197; 81003; 82340; 82565; 82652; 83036; 83970; 84100; 84105; 84156; 84550; 85025; 85045; 87799

== ENCOUNTER → 2025-06-13 13:13 | Outpatient (BNVA) | payer MEDICARE, SELFPAY | PROVIDERS: PCP Nurse Practitioner Adult Health; Visit Provider Registered Nurse | DX: I25.119 Atherosclerotic heart disease of native coronary artery with unspecified angina pectoris (principal); I10 Essential (primary) hypertension; I77.810 Thoracic aortic ectasia; Z79.02 Long term (current) use of antithrombotics/antiplatelets; Z95.1 Presence of aortocoronary bypass graft | CPT/HCPCS: 99214 ==

== ENCOUNTER → 2025-06-28 14:21 | Outpatient (BNVA) | payer MEDICARE, SELFPAY | PROVIDERS: PCP Nurse Practitioner Adult Health; Referring Provider Nurse Practitioner Adult Health; Visit Provider Podiatrist | DX: L60.3 Nail dystrophy (principal); B35.1 Tinea unguium; M79.674 Pain in right toe(s); M79.675 Pain in left toe(s); I70.203 Unspecified atherosclerosis of native arteries of extremities, bilateral legs; Z79.899 Other long term (current) drug therapy; R09.89 Other specified symptoms and signs involving the circulatory and respiratory systems; R20.8 Other disturbances of skin sensation; R60.0 Localized edema; L65.9 Nonscarring hair loss, unspecified; L60.2 Onychogryphosis | CPT/HCPCS: 11721 ==

== ENCOUNTER 2025-06-30 16:10 | Outpatient (CLI) | payer MEDICARE, SELFPAY ==
--- NOTE | 2025-06-30 12:30 | DI.US_ITS ---
APPROVED REPORT EXAM: Comprehensive 2D, Doppler, and color-flow Echocardiogram Patient Location: Out-Patient Cycle Counter: Toshia Lua RDCS (AE) Indications: Dyspnea, aortic root and ascending aorta dilation Other Information Study Quality: Adequate Conclusion Normal left ventricular wall thickness and chamber size. Ejection fraction is 58%. Wall motion is normal Normal right ventricular size and function Both atria are normal in size The aortic valve is sclerotic and trileaflet with mild regurgitation Mild mitral annular calcification. Trace mitral regurgitation Mild tricuspid regurgitation. Estimated right ventricular systolic pressure is 28 mmHg Dilated aortic root (4.6 cm) and ascending aorta (4.15 cm) Wall motion Left Ventricle The left ventricle is normal size. The left ventricular systolic function is normal. The left ventricular ejection fraction is within the normal range. There is normal left ventricular wall thickness. There is normal LV segmental wall motion. There is no ventricular septal defect visualized. LVEF is 57%. Right Ventricle The right ventricle is normal size. The right ventricular systolic function is normal. Atria The left atrium size is normal. The right atrium size is normal. The interatrial septum is intact with no evidence for an atrial septal defect. Aortic Valve The Aortic valve is sclerotic. Aortic valve is trileaflet. There is no aortic valvular stenosis. Mild aortic regurgitation. Mitral Valve Mild mitral annular calcification. No evidence of mitral valve stenosis. Trace mitral regurgitation. Tricuspid Valve The tricuspid valve is normal in structure. There is no tricuspid valve stenosis. Mild tricuspid regurgitation. The RVSP is 27.8 mmHg. Pulmonic Valve The pulmonary valve is normal in structure. There is no pulmonic valvular stenosis. Mild pulmonic regurgitation. Great Vessels Aortic root is moderately dilated. The ascending aorta is mildly dilated. Aortic arch is not well visualized. IVC is normal in size and collapses >50% with inspiration. Pericardium There is no pericardial effusion. 2D Dimensions IVSD d PLAX 1.05 cm M: 0.6-1.2 Ao Root d 4.60 cm M: 3.1 - 3.7 LVPW d PLAX 1.03 cm M: 0.6 - 1.2 Ao Asc Diam d 4.15 cm M: 2.6 - 3.4 LVID d PLAX 4.60 cm M: 4.2 - 5.8 LVDs 3.20 cm M: 2.5 - 4.0 LV EF Teichholz 58.3 % FS 30.71 % LV EDV (Teich) 95.8 mL LV ESV (Teich) 39.9 mL M-Mode TAPSE 2.09 cm (M/F) >1.7 Auto EF LV EDV A4C 110.2 mL LV EDV A2C 111.4 mL LV EDV BP 110.3 mL LV ESV A4C 47.1 mL LV ESV A2C 47.8 mL LV ESV BP 47.1 mL LVEF(%) A4C 57.2 % LVEF(%) A2C 57.1 % LVEF(%) BP 57.3 % LV SV A4C 63.1 ml LV SV A2C 63.6 ml LV SV BP 63.2 ml LV CO A4C 3.6 L/min LV CO A2C 3.7 L/min LV CO BP 3.7 L/min HR A4C 57.68 BPM HR A2C 58.35 BPM LV EDV Index (BP) LA Volume LA Length A4C 5.5 cm LA Length A2C 5.0 cm LA Area A4C s 17.42 cm2 LA Area A2C s 22.58 cm2 LA Vol A4C A-L 46.52 mL LA Vol A2C A-L 87.15 mL LA Vol Biplane A-L 67.2 mL LA Vol/BSA A4C A-L LA Vol/BSA A2C A-L LA Vol/BSA BP A-L 29.4 mL/m2 LA Vol A4C MOD 42.5 mL LA Vol A2C MOD 80.7 mL LA Vol BP MOD 61.8 mL RA Volume RA Area A4C 15.0 cm2 RA ESV A4C (A-L) 40.7mL RA Vol/BSA A4C A-L RA Length A4C 4.7 cm RA ESV A4C (MOD) 37.5mL LV Diastology MV E' medial 0.087 (>0.07 m/s) MV E Vmax 0.58 (0.4-1.3 m/s) MV E/E' MED 6.64 (<14) MV A Vmax 0.75 (0.4-1.3 m/s) MV E' lateral 0.113 (>0.1 m/s) E/A Ratio 0.8 MV E/E' LAT 5.12 (<14) MV E' Average 0.100 m/s MV E/E'(average) 5.78 Aortic Valve AoV Vmax 1.81 m/s LVOT Vmax 0.90 m/s AoV Peak Grad 26.7 mmHg LVOT Peak Grad 3.2 mmHg AoV Area (Vmax) 1.84 cm2 LVOT VTI 0.246 m AoV VTI 0.432 m LVOT Mean Grad 1.6 mmHg AoV Mean Dada. 1.21 m/s LVOT SV 90.86 mL AoV Mean Grad 6.9 mmHg LVOT Diam s 2.15 cm AoV Area (VTI) 2.10 cm2 AV Regurg Peak Gr. 13.11 mmHg Velocity Ratio 0.50 AR Decel [place] 1.1m/sec2 AR DT 2978 msec AR PHT 863 msec AR Vmax 3.17 m/s Mitral Valve MV DT 349 (160-240 msec) MV Vmax TIPS 0.74 m/s MV Mean Grad 0.8 (<2mmHg) MV VTI 0.285 m Pulmonary Valve PV Vmax 0.98 (0.5-1.5 m/s) RVOT Vmax 0.61 m/s PV Peak Grad 3.9 mmHg RVOT Peak Gr. 1.5 mmHg PV Mean Dada 0.61 m/s RVOT VTI 0.136 m PV Mean Grad 1.8 mmHg RVOT Mean Gr. 0.8 mmHg Tricuspid Valve RA Pressure 3.00 mmHg TR Vmax 2.49 m/s TV S' 0.12 m/s TR Peak Grad 24.7 mmHg RVSP (TR) 27.8 mmHg
== END 2025-06-30 16:30 ==
LOC: DI 16:10
PROVIDERS: PCP Nurse Practitioner Adult Health; Visit Provider Internal Medicine Cardiovascular Disease
DX: I77.810 Thoracic aortic ectasia (principal)
CPT/HCPCS: 93306

== ENCOUNTER 2025-08-19 03:04 | Outpatient (CLI) | payer MEDICARE, SELFPAY ==
[2025-08-19 09:10] LABS: Glucose Negative (Negative)
[2025-08-19 09:11] LABS: Abs Immature Grans 0.02 10^3/uL (0.0-0.06); HCT 45.6 % (40.0-50.0); HGB 15.2 g/dL (13.5-17.5); Immature Grans % 0.4 %; MCH 29.0 pg (27.0-33.0); MCHC 33.3 % (32.0-36.0); MCV 87 fL (80-95); MPV 8.6 fL (8.0-11.0); Platelet Count 165 10^3/uL (130-400); RBC 5.24 10^6/uL (4.36-5.78); RDW 14.5 % (11.8-14.1); RDW-SD 46.0 fL; WBC 4.85 10^3/uL (4.4-10.8)
[2025-08-19 10:23] LABS: ALT 17 U/L (16-63); AST 15 U/L (15-37); Albumin 3.5 g/dL (3.4-5.0); Alkaline Phosphatase 109 U/L (46-116); Anion Gap 9.7 mmol/L (3-11); BUN 11 mg/dL (7-18); Bilirubin, Total 1.3 mg/dL (0.2-1.0); CO2 27.3 mmol/L (21.0-32.0); Calcium 9.2 mg/dL (8.5-10.1); Chloride 105 mmol/L (98-107); Estimated GFR 79.47 (mL/min/1.73m2); Glucose 116 mg/dL (74-106); Magnesium 1.9 mg/dL (1.8-2.4); Potassium 4.1 mmol/L (3.5-5.1); Sodium 142 mmol/L (136-145); Total Protein 6.9 g/dL (6.4-8.2); Uric Acid 4.5 mg/dL (3.5-7.2)
[2025-08-19 10:26] LABS: PROTEIN 19.7 mg/dL; Prot/Crea Ur Ratio 0.23
[2025-08-19 11:51] LABS: Cholesterol 131 mg/dL (<200)
[2025-08-20 09:26] LABS: Calcium (Random Urine) 15.8 mg/dL (See Note)
== END 2025-08-19 03:05 | disposition home or self-care (01) ==
PROVIDERS: Nurse Practitioner Family; PCP Nurse Practitioner Adult Health; Visit Provider Internal Medicine Nephrology
DX: Z94.0 Kidney transplant status (principal); Z79.899 Other long term (current) drug therapy
CPT/HCPCS: 36415; 80053; 83735; 80197; 81003; 82340; 82465; 82565; 84100; 84105; 84156; 84550; 85025; 87799

== ENCOUNTER 2025-10-17 16:27 | Outpatient (CLI) | payer MEDICARE, SELFPAY ==
[2025-10-17 16:32] LABS: TSH 3.28 uIU/mL (0.55-4.78)
[2025-10-17 23:47] LABS: T3, Total 128 ng/dL (82-158)
== END 2025-10-17 16:28 | disposition home or self-care (01) ==
LOC: LBO 16:28
PROVIDERS: PCP Nurse Practitioner Adult Health; Visit Provider Nurse Practitioner Adult Health
DX: E03.8 Other specified hypothyroidism (principal); R79.89 Other specified abnormal findings of blood chemistry; R53.83 Other fatigue
CPT/HCPCS: 36415; 84439; 84443; 84480